=== PATIENT | female | born 1975 | race Caucasian/White ===

== ENCOUNTER → 2016-05-04 | Outpatient (CLI) | payer MEDICARE, MEDICAID | END | disposition home or self-care (01) | LOC: MW.CHFP 14:07 | PROVIDERS: ATTEND Physician Assistant | DX: Z01.419 Encounter for gynecological examination (general) (routine) without abnormal findings (principal) | CPT/HCPCS: 90471; 90715; 99214; G0145 ==

== ENCOUNTER 2016-05-20 16:23 | Inpatient (IN) | payer MEDICARE, MEDICAID ==
[2016-05-20] MEDS ORDERED: Sodium Chloride 0.9% 1,000 ML IV ONE (16:57)
[2016-05-20] MEDS ORDERED: Sodium Chloride 0.9% 10 ML Syringe FLUSH PRN (16:57)
[2016-05-20] MEDS ORDERED: Sodium Chloride 0.9% 2.5 ML Syringe FLUSH PRN (16:57)
[2016-05-20] MEDS ORDERED: Ondansetron 4 MG/2 ML SDV IVPUSH ONE (16:57)
[2016-05-20] MEDS ORDERED: Albuterol/Ipratropium 3.0-0.5 MG/3 ML Neb Soln NEB ONE (17:03)
--- NOTE | 2016-05-20 17:37 | EDM.PDOC ---
<Koko JoseMichelle - Last Filed: 05/20/16 18:29> ED HPI GI/ABDOMINAL - General Chief Complaint: Gastrointestinal Problem Stated Complaint: unable to use the restroom Time Seen by Provider: 05/20/16 16:37 Source of Information: Reports: Patient - History of Present Illness INITIAL COMMENTS - FREE TEXT/NARRATIVE: Patient is a 40 year old female who presents to the ED with caregiver who voices patient was into the clinic yesterday and was diagnosed with pneumonia and started on outpatient antibiotic therapy. Patient started vomiting today after j tube feeding and had a total of 2 large emesis orally with last one being an hour ago. Patient has a history of aspiration, staff are worried she will aspirate so they brought her in to be evaluated. According to staff patient has had decreased urine output since this morning patient is usually wet in the morning and is changed every 2-3 hours. Patient was changed once after waking up but has since not had any more wet attends. All information is obtained via caregiver as patient is non-verbal. According to caregiver patient is usually more alert and can hold head up and interact with staff, and people around. Symptom Onset Date: 05/20/16 Timing/Duration: Reports: Hour(s): (3-4 hours ago) - Related Data Allergies/ADRs: Allergies Allergy/AdvReac Type Severity Reaction Status Date / Time avocado Allergy Rash Verified 05/20/16 16:41 kiwi Allergy Rash Verified 05/20/16 16:41 latex Allergy Hives Verified 05/20/16 16:41 Latex, Natural Rubber Allergy Rash Verified 05/20/16 16:41 Sulfa (Sulfonamide Allergy Rash Verified 05/20/16 16:41 Antibiotics) sulfamethoxazole Allergy Hives Verified 05/20/16 16:41 [From Bactrim] trimethoprim [From Bactrim] Allergy Hives Verified 05/20/16 16:41 chestnuts Allergy Rash Uncoded 05/20/16 16:41 Home Meds: Home Meds EPINEPHrine [Epipen] 0.3 mg PO ASDIRECTED 01/11/15 [History] Cyanocobalamin (Vitamin B12) [Vitamin B12] 1,000 mcg PEGTUBE DAILY #0 01/19/15 [Rx] Multivitamin [Multi-Vitamin Daily] 1 tab PEGTUBE DAILY #0 01/19/15 [Rx] Sertraline [Zoloft] 100 mg PEGTUBE DAILY #0 01/19/15 [Rx] diphenhydrAMINE [Benadryl] 25 mg PEGTUBE Q6HR PRN #0 01/19/15 [Rx] Baclofen 10 mg PEGTUBE ASDIRECTED 05/15/15 [History] Bisacodyl [Dulcolax] 10 mg RECTAL DAILY 05/15/15 [History] medroxyPROGESTERone Acetate [Depo-Provera] 150 mg IM ASDIRECTED 05/15/15 [ History] Azithromycin 500 mg PO DAILY 05/20/16 [History] Dextromethorphan HBr [Tussin Cough] 15 mg PO 05/20/16 [History] Past Medical History Other Gastrointestinal History: Gtube Genitourinary History: Reports: UTI, recurrent Other OB/BYN History: Ovarian torsion Neurological History: Reports: Cerebral palsy Other Neuro History: Microcephalic Other Psychiatric History: separation anxiety, intellectual disability Hematologic History: Reports: B12 deficiency - Past Surgical History GI Surgical History: Reports: Appendectomy, Colonoscopy Female Surgical History: Reports: Other (see below) Other Female Surgeries/Procedures: Oopherectomy Other Neurological Surgeries/Procedures: Baclofen pump implant 01-21-02, baclofen removal Other Musculoskeletal Surgeries/Procedures:: Hamstring strech/lengthening Social & Family History - Family History Family Medical History: Noncontributory - Tobacco Use Smoking Status *Q: Never Smoker - Recreational Drug Use Recreational Drug Use: No - Living Situation & Occupation Living situation: Reports: extended care facility ([facility] ED ROS GENERAL - Review of Systems Review Of Systems: ROS reveals no pertinent complaints other than HPI. ED EXAM, GI/ABD - Physical Exam Exam: See Below (non-verbal patient) Exam Limited By: Other General Appearance: alert, WD/WN, no apparent distress Ears: normal external exam Nose: normal inspection Throat/Mouth: Normal inspection, Normal lips, Normal gums, Normal oropharynx, No airway compromise, Other (numerous filling noted to teeth) Head: atraumatic, normocephalic Neck: normal inspection Respiratory/Chest: rhonchi, other (rhonchi and bronchial breath sounds throughout uper and lower airways) Cardiovascular: regular rate, rhythm GI/Abdominal: normal bowel sounds, soft, non tender, no organomegaly, no distention, no abnormal bruit, no mass (Female) Exam: Deferred Rectal (Female) Exam: Deferred Skin Exam: Warm, Dry, Normal color Course - Vital Signs Last Recorded V/S: Last Vital Signs Temp 37.3 C 05/21/16 04:00 Pulse 146 H 05/21/16 06:00 Resp 25 H 05/21/16 06:00 BP 114/64 05/21/16 06:00 Pulse Ox 94 L 05/21/16 06:00 - Orders/Labs/Meds Orders: Active Orders 24 hr Category Date Time Status Admission Status [Patient Status] [ADT] Stat ADT 05/20/16 18:36 Active Insert Urinary Catheter [OM.PC] Q24H Care 05/20/16 19:00 Ordered Oxygen Therapy [RC] PRN Care 05/20/16 18:51 Active RT Aerosol Therapy [RC] ASDIRECTED Care 05/20/16 17:03 Active Urinary Catheter Assessment [RC] Q4H Care 05/20/16 18:53 Active Vital Signs [RC] Q1H Care 05/20/16 18:51 Active CULTURE BLOOD [BC] Stat Lab 05/20/16 17:24 Results CULTURE BLOOD [BC] Stat Lab 05/20/16 17:36 Received CULTURE URINE [RM] Stat Lab 05/20/16 20:00 Received Baclofen [Lioresal] Med 05/20/16 21:00 Active 10 mg GTUBE BID Bisacodyl [Dulcolax] Med 05/21/16 09:00 Active 10 mg RECTAL DAILY Heparin Sodium Med 05/21/16 19:00 Active 5,000 units SUBCUT Q8H Levofloxacin/Dextrose 5%-Water [Levaquin in D5W 500 MG/ Med 05/20/16 19:00 Active 100 ML] 500 mg Premix Bag 1 bag IV Q48H Piperacillin/Tazobactam [Zosyn] 2.25 gm Med 05/21/16 01:00 Active Sodium Chloride 0.9% [Normal Saline] 50 ml IV Q6H Sertraline [Zoloft] Med 05/21/16 09:00 Active 100 mg GTUBE DAILY Sodium Chloride 0.9% [Saline Flush] Med 05/20/16 16:57 Active 10 ml FLUSH ASDIRECTED PRN Sodium Chloride 0.9% [Saline Flush] Med 05/20/16 16:57 Active 2.5 ml FLUSH ASDIRECTED PRN Vancomycin Pharmacy to Dose [Pharmacy to Dose - Med 05/20/16 19:00 Pending Vancomycin] 1 dose .XX ASDIRECTED Aspiration Precautions [OM.PC] Stat Ot 05/20/16 18:51 Ordered Blood Culture x2 Reflex Set [OM.PC] Stat Ot 05/20/16 16:56 Ordered Saline Lock Insert [OM.PC] Stat Ot 05/20/16 16:56 Ordered Resuscitation Status Routine Resus Stat 05/20/16 18:51 Ordered Medication Orders Baclofen (Lioresal) 10 mg GTUBE BID [facility] Last Admin: 05/20/16 21:44 Dose: 10 mg Bisacodyl (Dulcolax) 10 mg RECTAL DAILY [facility] Heparin Sodium (Porcine) (Heparin Sodium) 5,000 units SUBCUT Q8H [facility] Levofloxacin/Dextrose 500 mg/ (Premix) 100 mls @ 100 mls/hr IV Q48H [facility] Last Admin: 05/20/16 21:08 Dose: 100 mls/hr Piperacillin Sod/Tazobactam (Sod 2.25 gm/ Sodium Chloride) 50 mls @ 100 mls/hr IV Q6H [facility] Last Admin: 05/21/16 06:17 Dose: 100 mls/hr Infusion: 05/21/16 01:19 Dose: 100 mls/hr Admin: 05/21/16 00:49 Dose: 100 mls/hr Dextrose/Water (Dextrose 5% In Water) 1,000 mls @ 150 mls/hr IV ASDIRECTED [facility] Last Admin: 05/21/16 00:56 Dose: 150 mls/hr Lactated Ringer's (Ringers, Lactated) 1,000 mls @ 999 mls/hr IV .BOLUS [facility] Last Admin: 05/21/16 05:06 Dose: 999 mls/hr Pneumococcal Polyvalent Vaccine (Pneumovax 23) 0.5 ml IM .ONCE ONE Stop: 05/21/16 09:01 Sertraline HCl (Zoloft) 100 mg GTUBE DAILY [facility] Sodium Chloride (Saline Flush) 10 ml FLUSH ASDIRECTED PRN PRN Reason: Keep Vein Open Last Admin: 05/20/16 17:40 Dose: 10 ml Sodium Chloride (Saline Flush) 2.5 ml FLUSH ASDIRECTED PRN PRN Reason: Keep Vein Open Last Admin: 05/20/16 17:40 Dose: 2.5 ml Vancomycin HCl (Pharmacy To Dose - Vancomycin) 1 dose .XX ASDIRECTED [facility] Labs: Laboratory Tests 05/20/16 05/20/16 05/20/16 Range/Units 17:36 17:36 17:36 WBC 11.55 H (4.0-11.0) K/uL RBC 4.87 (4.30-5.90) M/uL Hgb 16.3 H (12.0-16.0) g/dL Hct 49.7 H (36.0-46.0) % MCV 102.1 H (80.0-98.0) fL MCH 33.5 H (27.0-32.0) pg MCHC 32.8 (31.0-37.0) g/dL RDW Std Deviation 52.0 (28.0-62.0) fl RDW Coeff of Julio 14 (11.0-15.0) % Plt Count 132 L (150-400) K/uL MPV 12.70 H (7.40-12.00) fL Neut % (Auto) 77.5 (48.0-80.0) % Lymph % (Auto) 9.8 L (16.0-40.0) % [place] % (Auto) 12.6 (0.0-15.0) % Eos % (Auto) 0.0 (0.0-7.0) % Baso % (Auto) 0.1 (0.0-1.5) % Neut # 9.0 H (1.4-5.7) K/uL Lymph # 1.1 (0.6-2.4) K/uL [place] # 1.5 H (0.0-0.8) K/uL Eos # 0.0 (0.0-0.7) K/uL Baso # 0.0 (0.0-0.1) K/uL Nucleated RBC % 0.0 /100WBC Nucleated RBCs # 0 K/uL Lactate 4.7 H (0.20-2.00) mmol/L Sodium 161 H* (136-146) mmol/L Potassium 3.4 L (3.5-5.1) mmol/L Chloride 123 H (98-110) mmol/L Carbon Dioxide 20 L (21-31) mmol/L BUN 96 H (6.0-23.0) mg/dL Creatinine 2.1 H (0.6-1.5) mg/dL Est Cr Clr Drug Dosing 20.20 mL/min Estimated GFR (MDRD) 26.0 ml/min Glucose 185 H (60-110) mg/dL Calcium 9.6 (8.8-10.8) mg/dL Total Bilirubin 1.0 (0.1-1.5) mg/dL AST 61 H (5-40) IU/L ALT 31 (8-54) IU/L Alkaline Phosphatase 107 (40-150) Total Protein 8.5 H (6.0-8.0) g/dL Albumin 4.1 (3.5-5.0) g/dL Globulin 4.4 H (2.0-3.5) g/dL Albumin/Globulin Ratio 0.9 L (1.3-2.8) Lipase < 8 (7-80) U/L Urine Color Urine Appearance Urine pH (5.0-8.0) Ur Specific [place] (1.001-1.035) Urine Protein (NEGATIVE) mg/dL Urine Glucose (UA) (NEGATIVE) mg/dL Urine Ketones (NEGATIVE) mg/dL Urine Occult Blood (NEGATIVE) Urine Nitrite (NEGATIVE) Urine Bilirubin (NEGATIVE) Urine Urobilinogen (<2.0) EU/dL Ur Leukocyte Esterase (NEGATIVE) Urine RBC (0-2/HPF) Urine WBC (0-5/HPF) Ur Epithelial Cells (NONE-FEW) Amorphous Sediment (NEGATIVE) Urine Bacteria (NEGATIVE) Urine Mucus (NONE-MOD) 05/20/16 Range/Units 20:00 WBC (4.0-11.0) K/uL RBC (4.30-5.90) M/uL Hgb (12.0-16.0) g/dL Hct (36.0-46.0) % MCV (80.0-98.0) fL MCH (27.0-32.0) pg MCHC (31.0-37.0) g/dL RDW Std Deviation (28.0-62.0) fl RDW Coeff of Julio (11.0-15.0) % Plt Count (150-400) K/uL MPV (7.40-12.00) fL Neut % (Auto) (48.0-80.0) % Lymph % (Auto) (16.0-40.0) % [place] % (Auto) (0.0-15.0) % Eos % (Auto) (0.0-7.0) % Baso % (Auto) (0.0-1.5) % Neut # (1.4-5.7) K/uL Lymph # (0.6-2.4) K/uL [place] # (0.0-0.8) K/uL Eos # (0.0-0.7) K/uL Baso # (0.0-0.1) K/uL Nucleated RBC % /100WBC Nucleated RBCs # K/uL Lactate (0.20-2.00) mmol/L Sodium (136-146) mmol/L Potassium (3.5-5.1) mmol/L Chloride (98-110) mmol/L Carbon Dioxide (21-31) mmol/L BUN (6.0-23.0) mg/dL Creatinine (0.6-1.5) mg/dL Est Cr Clr Drug Dosing mL/min Estimated GFR (MDRD) ml/min Glucose (60-110) mg/dL Calcium (8.8-10.8) mg/dL Total Bilirubin (0.1-1.5) mg/dL AST (5-40) IU/L ALT (8-54) IU/L Alkaline Phosphatase (40-150) Total Protein (6.0-8.0) g/dL Albumin (3.5-5.0) g/dL Globulin (2.0-3.5) g/dL Albumin/Globulin Ratio (1.3-2.8) Lipase (7-80) U/L Urine Color YELLOW Urine Appearance SLT CLOUDY Urine pH 5.0 (5.0-8.0) Ur Specific [place] 1.025 (1.001-1.035) Urine Protein 100 (NEGATIVE) mg/dL Urine Glucose (UA) NEGATIVE (NEGATIVE) mg/dL Urine Ketones NEGATIVE (NEGATIVE) mg/dL Urine Occult Blood LARGE H (NEGATIVE) Urine Nitrite NEGATIVE (NEGATIVE) Urine Bilirubin NEGATIVE (NEGATIVE) Urine Urobilinogen 0.2 (<2.0) EU/dL Ur Leukocyte Esterase NEGATIVE (NEGATIVE) Urine RBC 1-4 (0-2/HPF) Urine WBC 1-4 (0-5/HPF) Ur Epithelial Cells FEW (NONE-FEW) Amorphous Sediment MODERATE (NEGATIVE) Urine Bacteria FEW (NEGATIVE) Urine Mucus LIGHT (NONE-MOD) Meds: Medications Generic Name Dose Route Start Last Admin Trade Name Freq PRN Reason Stop Dose Admin Baclofen 10 mg 05/20/16 21:00 05/20/16 21:44 Lioresal GTUBE 10 mg BID AGUS Administration Bisacodyl 10 mg 05/21/16 09:00 Dulcolax RECTAL DAILY AGUS Heparin Sodium (Porcine) 5,000 units 05/21/16 19:00 Heparin Sodium SUBCUT Q8H AGUS Levofloxacin/Dextrose 500 mg/ 100 mls @ 100 mls/hr 05/20/16 19:00 05/20/16 21 :08 Premix IV 100 mls/hr Q48H AUGS Administration Piperacillin Sod/Tazobactam 50 mls @ 100 mls/hr 05/21/16 01:00 05/21/16 06:17 Sod 2.25 gm/ Sodium Chloride IV 100 mls/hr Q6H AGUS Administration Dextrose/Water 1,000 mls @ 150 mls/hr 05/21/16 01:00 05/21/16 00:56 Dextrose 5% In Water IV 150 mls/hr ASDIRECTED AGUS Administration Lactated Ringer's 1,000 mls @ 999 mls/hr 05/21/16 05:00 05/21/16 05:06 Ringers, Lactated IV 999 mls/hr .BOLUS AGUS Administration Pneumococcal Polyvalent Vaccine 0.5 ml 05/21/16 09:00 Pneumovax 23 IM 05/21/16 09:01 .ONCE ONE Sertraline HCl 100 mg 05/21/16 09:00 Zoloft GTUBE DAILY AGUS Sodium Chloride 10 ml 05/20/16 16:57 05/20/16 17:40 Saline Flush FLUSH 10 ml ASDIRECTED PRN Administration Keep Vein Open Sodium Chloride 2.5 ml 05/20/16 16:57 05/20/16 17:40 Saline Flush FLUSH 2.5 ml ASDIRECTED PRN Administration Keep Vein Open Vancomycin HCl 1 dose 05/20/16 19:00 Pharmacy To Dose - Vancomycin .XX ASDIRECTED AGUS Discontinued Medications Generic Name Dose Route Start Last Admin Trade Name Saman PRN Reason Stop Dose Admin Albuterol/Ipratropium 3 ml 05/20/16 17:03 05/20/16 17:11 Duoneb 3.0-0.5 Mg/3 Ml NEB 05/20/16 17:04 3 ml ONETIME ONE Administration Fentanyl 50 mcg 05/21/16 01:50 05/21/16 02:49 Sublimaze IVPUSH 05/21/16 01:51 50 mcg ONETIME ONE Administration Fentanyl 50 mcg 05/21/16 03:08 05/21/16 03:37 Sublimaze IVPUSH 05/21/16 03:09 50 mcg ONETIME ONE Administration Haloperidol Lactate 5 mg 05/21/16 00:46 05/21/16 00:55 Haldol IM 05/21/16 00:47 5 mg ONETIME ONE Administration Sodium Chloride 1,000 mls @ 999 mls/hr 05/20/16 16:57 05/20/16 17:40 Normal Saline IV 05/20/16 17:57 999 mls/hr STAT ONE Administration Piperacillin Sod/Tazobactam 50 mls @ 100 mls/hr 05/20/16 18:34 05/20/16 18:48 Sod 3.375 gm/ Sodium Chloride IV 05/20/16 19:03 100 mls/hr ONETIME ONE Administration Sodium Chloride 1,000 mls @ 150 mls/hr 05/20/16 19:00 05/20/16 21:09 Sodium Chloride 0.45% IV 150 mls/hr ASDIRECTED AGUS Administration Vancomycin HCl 500 mg/ Sodium 100 mls @ 100 mls/hr 05/20/16 20:00 05/20/16 22 :31 Chloride IV 05/20/16 20:59 100 mls/hr ONETIME ONE Administration Lactated Ringer's 1,000 mls @ 999 mls/hr 05/21/16 02:50 05/21/16 02:59 Ringers, Lactated IV 05/21/16 03:50 999 mls/hr .BOLUS ONE Administration Ondansetron HCl 4 mg 05/20/16 16:57 05/20/16 17:39 Zofran IVPUSH 05/20/16 16:58 4 mg ONETIME ONE Administration Departure - Departure Disposition: Admitted As Inpatient 65 Clinical Impression: Dehydration, severe, Hypernatremia Sepsis Qualifiers: Sepsis type: sepsis due to unspecified organism Qualified Code(s): A41.9 - Sepsis, unspecified organism Pneumonia Qualifiers: Pneumonia type: due to unspecified organism Laterality: left Lung location: unspecified part of lung Qualified Code(s): J18.9 - Pneumonia, unspecified organism - My Orders Last 24 Hours: My Active Orders 05/20/16 16:56 Blood Culture x2 Reflex Set [OM.PC] Stat Saline Lock Insert [OM.PC] Stat 05/20/16 16:57 Sodium Chloride 0.9% [Saline Flush] 10 ml FLUSH ASDIRECTED PRN Sodium Chloride 0.9% [Saline Flush] 2.5 ml FLUSH ASDIRECTED PRN 05/20/16 17:03 RT Aerosol Therapy [RC] ASDIRECTED 05/20/16 17:24 CULTURE BLOOD [BC] Stat 05/20/16 17:36 CULTURE BLOOD [BC] Stat 05/20/16 18:36 Admission Status [Patient Status] [ADT] Stat 05/20/16 20:00 CULTURE URINE [RM] Stat - Assessment/Plan Last 24 Hours: My Active Orders 05/20/16 16:56 Blood Culture x2 Reflex Set [OM.PC] Stat Saline Lock Insert [OM.PC] Stat 05/20/16 16:57 Sodium Chloride 0.9% [Saline Flush] 10 ml FLUSH ASDIRECTED PRN Sodium Chloride 0.9% [Saline Flush] 2.5 ml FLUSH ASDIRECTED PRN 05/20/16 17:03 RT Aerosol Therapy [RC] ASDIRECTED 05/20/16 17:24 CULTURE BLOOD [BC] Stat 05/20/16 17:36 CULTURE BLOOD [BC] Stat 05/20/16 18:36 Admission Status [Patient Status] [ADT] Stat 05/20/16 20:00 CULTURE URINE [RM] Stat <Maday Carver - Last Filed: 05/21/16 07:24> ED HPI GI/ABDOMINAL - History of Present Illness INITIAL COMMENTS - FREE TEXT/NARRATIVE: This is Dr. Carver dictating as the supervising physician on the case. The patient has had cold symptoms and upper respiratory symptoms and was seen in our clinic yesterday and had a chest x-ray which we have reviewed. Indicated a left retrocardiac infiltrate. She had a WBC count of 10 at that time and was placed on Zithromax. The patient has been vomiting as described above and she has not made any urine output all day today. Patient sounds more congested per the caregiver and here in the ER showed a temp of 100.2., Per my own Independent evaluation of her she looks dehydrated clinically but is nontoxic and is breathing spontaneously without work of breathing. She's has coarse breath sounds bilaterally and congested upper airway noise. Her O2 sat on room air was 90%. We will give her a duo neb and perform our labs but will not repeat a chest x-ray as we are ready he did that yesterday. We will give IV fluids and Zofran and reevaluate pending those results. Please note that all history is per the caregiver as the patient is nonverbal cannot her head intermittently with questions. Per the caregiver she did not complain of any abdominal pain and on palpation she exhibited no rebound guarding or grimacing. All labs have been reviewed by us and case was discussed with at 1625. He has accepted the patient for admission. Patient will be admitted for IV fluids and antibiotics. Impression: Extreme dehydration with hypernatremia, pneumonia rule out sepsis ED ROS GENERAL - Review of Systems Review Of Systems: ROS reveals no pertinent complaints other than HPI. Course - Orders/Labs/Meds Labs: Laboratory Tests 05/20/16 05/20/16 05/20/16 Range/Units 17:36 17:36 17:36 WBC 11.55 H (4.0-11.0) K/uL RBC 4.87 (4.30-5.90) M/uL Hgb 16.3 H (12.0-16.0) g/dL Hct 49.7 H (36.0-46.0) % MCV 102.1 H (80.0-98.0) fL MCH 33.5 H (27.0-32.0) pg MCHC 32.8 (31.0-37.0) g/dL RDW Std Deviation 52.0 (28.0-62.0) fl RDW Coeff of Jluio 14 (11.0-15.0) % Plt Count 132 L (150-400) K/uL MPV 12.70 H (7.40-12.00) fL Neut % (Auto) 77.5 (48.0-80.0) % Lymph % (Auto) 9.8 L (16.0-40.0) % [place] % (Auto) 12.6 (0.0-15.0) % Eos % (Auto) 0.0 (0.0-7.0) % Baso % (Auto) 0.1 (0.0-1.5) % Neut # 9.0 H (1.4-5.7) K/uL Lymph # 1.1 (0.6-2.4) K/uL [place] # 1.5 H (0.0-0.8) K/uL Eos # 0.0 (0.0-0.7) K/uL Baso # 0.0 (0.0-0.1) K/uL Nucleated RBC % 0.0 /100WBC Nucleated RBCs # 0 K/uL Lactate 4.7 H (0.20-2.00) mmol/L Sodium 161 H* (136-146) mmol/L Potassium 3.4 L (3.5-5.1) mmol/L Chloride 123 H (98-110) mmol/L Carbon Dioxide 20 L (21-31) mmol/L BUN 96 H (6.0-23.0) mg/dL Creatinine 2.1 H (0.6-1.5) mg/dL Est Cr Clr Drug Dosing 20.20 mL/min Estimated GFR (MDRD) 26.0 ml/min Glucose 185 H (60-110) mg/dL Calcium 9.6 (8.8-10.8) mg/dL Total Bilirubin 1.0 (0.1-1.5) mg/dL AST 61 H (5-40) IU/L ALT 31 (8-54) IU/L Alkaline Phosphatase 107 (40-150) Total Protein 8.5 H (6.0-8.0) g/dL Albumin 4.1 (3.5-5.0) g/dL Globulin 4.4 H (2.0-3.5) g/dL Albumin/Globulin Ratio 0.9 L (1.3-2.8) Lipase < 8 (7-80) U/L Urine Color Urine Appearance Urine pH (5.0-8.0) Ur Specific [place] (1.001-1.035) Urine Protein (NEGATIVE) mg/dL Urine Glucose (UA) (NEGATIVE) mg/dL Urine Ketones (NEGATIVE) mg/dL Urine Occult Blood (NEGATIVE) Urine Nitrite (NEGATIVE) Urine Bilirubin (NEGATIVE) Urine Urobilinogen (<2.0) EU/dL Ur Leukocyte Esterase (NEGATIVE) Urine RBC (0-2/HPF) Urine WBC (0-5/HPF) Ur Epithelial Cells (NONE-FEW) Amorphous Sediment (NEGATIVE) Urine Bacteria (NEGATIVE) Urine Mucus (NONE-MOD) 05/20/16 Range/Units 20:00 WBC (4.0-11.0) K/uL RBC (4.30-5.90) M/uL Hgb (12.0-16.0) g/dL Hct (36.0-46.0) % MCV (80.0-98.0) fL MCH (27.0-32.0) pg MCHC (31.0-37.0) g/dL RDW Std Deviation (28.0-62.0) fl RDW Coeff of Julio (11.0-15.0) % Plt Count (150-400) K/uL MPV (7.40-12.00) fL Neut % (Auto) (48.0-80.0) % Lymph % (Auto) (16.0-40.0) % [place] % (Auto) (0.0-15.0) % Eos % (Auto) (0.0-7.0) % Baso % (Auto) (0.0-1.5) % Neut # (1.4-5.7) K/uL Lymph # (0.6-2.4) K/uL [place] # (0.0-0.8) K/uL Eos # (0.0-0.7) K/uL Baso # (0.0-0.1) K/uL Nucleated RBC % /100WBC Nucleated RBCs # K/uL Lactate (0.20-2.00) mmol/L Sodium (136-146) mmol/L Potassium (3.5-5.1) mmol/L Chloride (98-110) mmol/L Carbon Dioxide (21-31) mmol/L BUN (6.0-23.0) mg/dL Creatinine (0.6-1.5) mg/dL Est Cr Clr Drug Dosing mL/min Estimated GFR (MDRD) ml/min Glucose (60-110) mg/dL Calcium (8.8-10.8) mg/dL Total Bilirubin (0.1-1.5) mg/dL AST (5-40) IU/L ALT (8-54) IU/L Alkaline Phosphatase (40-150) Total Protein (6.0-8.0) g/dL Albumin (3.5-5.0) g/dL Globulin (2.0-3.5) g/dL Albumin/Globulin Ratio (1.3-2.8) Lipase (7-80) U/L Urine Color YELLOW Urine Appearance SLT CLOUDY Urine pH 5.0 (5.0-8.0) Ur Specific [place] 1.025 (1.001-1.035) Urine Protein 100 (NEGATIVE) mg/dL Urine Glucose (UA) NEGATIVE (NEGATIVE) mg/dL Urine Ketones NEGATIVE (NEGATIVE) mg/dL Urine Occult Blood LARGE H (NEGATIVE) Urine Nitrite NEGATIVE (NEGATIVE) Urine Bilirubin NEGATIVE (NEGATIVE) Urine Urobilinogen 0.2 (<2.0) EU/dL Ur Leukocyte Esterase NEGATIVE (NEGATIVE) Urine RBC 1-4 (0-2/HPF) Urine WBC 1-4 (0-5/HPF) Ur Epithelial Cells FEW (NONE-FEW) Amorphous Sediment MODERATE (NEGATIVE) Urine Bacteria FEW (NEGATIVE) Urine Mucus LIGHT (NONE-MOD) Departure - Departure Time of Disposition: 18:25 Condition: fair
[2016-05-20 18:09] LABS: CHLORIDE,CL 123 mmol/L (98-110)
[2016-05-20 18:12] LABS: SODIUM,NA 161 mmol/L (136-146)
[2016-05-20] MEDS ORDERED: Piperacillin/Tazobactam 3.375 GM in Sodium Chloride 0.9% 50 ML IV ONE (18:34)
[2016-05-20] MEDS ORDERED: Levofloxacin/Dextrose 5%-Water 500 MG in Premix Bag 1 BAG IV SCH (19:00)
[2016-05-20] MEDS ORDERED: Sodium Chloride 0.45% 1,000 ML IV SCH (19:00)
--- NOTE | 2016-05-20 19:02 | PCM.HP ---
H&P History of Present Illness - General Date of Service: 05/20/16 Admit Problem/Dx: Admission Diagnosis/Problem Admission Diagnosis/Problem Dehydration Source of Information: Old records, Provider - History of Present Illness Initial Comments - Free Text/Narative: seen in the ED today with fever and cough. she was seen recently and started on azithromycin for pneumonia evident on CXR as a retrocardiac infiltrate. She is non verbal - Related Data Allergies/Adverse Reactions: Allergies Allergy/AdvReac Type Severity Reaction Status Date / Time avocado Allergy Rash Verified 05/20/16 16:41 kiwi Allergy Rash Verified 05/20/16 16:41 latex Allergy Hives Verified 05/20/16 16:41 Latex, Natural Rubber Allergy Rash Verified 05/20/16 16:41 Sulfa (Sulfonamide Allergy Rash Verified 05/20/16 16:41 Antibiotics) sulfamethoxazole Allergy Hives Verified 05/20/16 16:41 [From Bactrim] trimethoprim [From Bactrim] Allergy Hives Verified 05/20/16 16:41 chestnuts Allergy Rash Uncoded 05/20/16 16:41 Home Medications: Home Meds EPINEPHrine [Epipen] 0.3 mg PO ASDIRECTED 01/11/15 [History] Cyanocobalamin (Vitamin B12) [Vitamin B12] 1,000 mcg PEGTUBE DAILY #0 01/19/15 [Rx] Multivitamin [Multi-Vitamin Daily] 1 tab PEGTUBE DAILY #0 01/19/15 [Rx] Sertraline [Zoloft] 100 mg PEGTUBE DAILY #0 01/19/15 [Rx] diphenhydrAMINE [Benadryl] 25 mg PEGTUBE Q6HR PRN #0 01/19/15 [Rx] Baclofen 10 mg PEGTUBE ASDIRECTED 05/15/15 [History] Bisacodyl [Dulcolax] 10 mg RECTAL DAILY 05/15/15 [History] medroxyPROGESTERone Acetate [Depo-Provera] 150 mg IM ASDIRECTED 05/15/15 [ History] Azithromycin 500 mg PO DAILY 05/20/16 [History] Dextromethorphan HBr [Tussin Cough] 15 mg PO 05/20/16 [History] Past Medical History HEENT History: Reports: None Cardiovascular History: Reports: None Respiratory History: Reports: None, Other (see below) (high aspiration pneumonia risk) Gastrointestinal History: Reports: Other (see below) Other Gastrointestinal History: Gtube Genitourinary History: Reports: UTI, recurrent PARISH NURSE History: Reports: Other (see below) Other OB/BYN History: Ovarian torsion Musculoskeletal History: Reports: None Neurological History: Reports: Cerebral palsy Other Neuro History: Microcephalic Psychiatric History: Reports: Other (see below) Other Psychiatric History: separation anxiety, intellectual disability Endocrine/Metabolic History: Reports: None Hematologic History: Reports: B12 deficiency Immunologic History: Reports: None Oncologic (Cancer) History: Reports: None Dermatologic History: Reports: None - Past Surgical History GI Surgical History: Reports: Appendectomy, Colonoscopy Female Surgical History: Reports: Other (see below) Other Female Surgeries/Procedures: Oopherectomy Other Neurological Surgeries/Procedures: Baclofen pump implant 01-21-02, baclofen removal Other Musculoskeletal Surgeries/Procedures:: Hamstring strech/lengthening Social & Family History - Family History Family Medical History: Noncontributory - Tobacco Use Smoking Status *Q: Never Smoker Second Hand Smoke Exposure: No - Caffeine Use Caffeine Use: Reports: None - Recreational Drug Use Recreational Drug Use: No - Living Situation & Occupation Living situation: Reports: extended care facility ([facility] ) H&P Review of Systems - Review of Systems: Review Of Systems: Unable To Obtain General: Reports: fever Pulmonary: Reports: cough Exam - Exam Exam: See Below - Vital Signs Vital Signs: Last Vital Signs Temp 101.4 F H 05/20/16 18:34 Pulse 139 H 05/20/16 18:34 Resp 20 05/20/16 18:34 BP 116/74 05/20/16 18:34 Pulse Ox 94 L 05/20/16 18:34 Weight: 36.287 kg - Exam Quality Assessment: other (she is non verbal and does not follow commands) General: alert HEENT: Other (lips dry) Lungs: Rales (bilateral rales) Cardiovascular: regular rate, regular rhythm Abdomen: soft. No: tenderness Extremities: other (cap refill toes less than two seconds; diffuse muscular atrophy; marked diffuse spasticity.). No: edema - Patient Data Lab Results last 24 hrs: Laboratory Results - last 24 hr 05/20/16 05/20/16 05/20/16 Range/Units 17:36 17:36 17:36 WBC 11.55 H (4.0-11.0) K/uL RBC 4.87 (4.30-5.90) M/uL Hgb 16.3 H (12.0-16.0) g/dL Hct 49.7 H (36.0-46.0) % MCV 102.1 H (80.0-98.0) fL MCH 33.5 H (27.0-32.0) pg MCHC 32.8 (31.0-37.0) g/dL RDW Std Deviation 52.0 (28.0-62.0) fl RDW Coeff of Julio 14 (11.0-15.0) % Plt Count 132 L (150-400) K/uL MPV 12.70 H (7.40-12.00) fL Neut % (Auto) 77.5 (48.0-80.0) % Lymph % (Auto) 9.8 L (16.0-40.0) % Nuckolls % (Auto) 12.6 (0.0-15.0) % Eos % (Auto) 0.0 (0.0-7.0) % Baso % (Auto) 0.1 (0.0-1.5) % Neut # 9.0 H (1.4-5.7) K/uL Lymph # 1.1 (0.6-2.4) K/uL Nuckolls # 1.5 H (0.0-0.8) K/uL Eos # 0.0 (0.0-0.7) K/uL Baso # 0.0 (0.0-0.1) K/uL Nucleated RBC % 0.0 /100WBC Nucleated RBCs # 0 K/uL Lactate 4.7 H (0.20-2.00) mmol/L Sodium 161 H* (136-146) mmol/L Potassium 3.4 L (3.5-5.1) mmol/L Chloride 123 H (98-110) mmol/L Carbon Dioxide 20 L (21-31) mmol/L BUN 96 H (6.0-23.0) mg/dL Creatinine 2.1 H (0.6-1.5) mg/dL Est Cr Clr Drug Dosing 20.20 mL/min Estimated GFR (MDRD) 26.0 ml/min Glucose 185 H (60-110) mg/dL Calcium 9.6 (8.8-10.8) mg/dL Total Bilirubin 1.0 (0.1-1.5) mg/dL AST 61 H (5-40) IU/L ALT 31 (8-54) IU/L Alkaline Phosphatase 107 (40-150) Total Protein 8.5 H (6.0-8.0) g/dL Albumin 4.1 (3.5-5.0) g/dL Globulin 4.4 H (2.0-3.5) g/dL Albumin/Globulin Ratio 0.9 L (1.3-2.8) Lipase < 8 (7-80) U/L Result Diagrams: 05/20/16 17:36 05/20/16 17:36 Sloan Results last 24 hrs: Microbiology 05/20/16 18:00 Influenza Type A Antigen Screen - Final Nasal, Unspecified NEGATIVE INFLUENZA A VIRUS AG Influenza Type B Antigen Screen - Final NEGATIVE INFLUENZA B VIRUS AG 05/20/16 17:24 Anaerobic Blood Culture - Final Blood - Venous *Q Meaningful Use (ADM) - VTE *Q VTE Criteria *Q: - Stroke *Q Stroke Criteria *Q: - AMI *Q AMI Criteria *Q: - Problem List (1) Sepsis SNOMED Code(s): 82515781 ICD Code: A41.9 - SEPSIS, UNSPECIFIED ORGANISM Status: Acute Current Visit: Yes (2) Aspiration pneumonia SNOMED Code(s): 744023012 ICD Code: J69.0 - PNEUMONITIS DUE TO INHALATION OF FOOD AND VOMIT Status: Chronic Priority: High Current Visit: No Problem Details: On antibiotics Qualifiers: Aspiration pneumonia type: due to gastric secretions Laterality: unspecified laterality Lung location: lower lobe of lung (3) Renal failure SNOMED Code(s): 71045754 ICD Code: N19 - UNSPECIFIED KIDNEY FAILURE Status: Acute Current Visit: Yes (4) Acute renal injury SNOMED Code(s): 14089163 ICD Code: N17.9 - ACUTE KIDNEY FAILURE, UNSPECIFIED Status: Acute Current Visit: Yes Problem List Initiated/Reviewed/Updated: Yes Orders Last 24hrs: Active Orders 24 hr Category Date Time Status Admission Status [Patient Status] [ADT] Stat ADT 05/20/16 18:36 Active Insert Urinary Catheter [OM.PC] Q24H Care 05/20/16 19:00 Ordered Oxygen Therapy [RC] PRN Care 05/20/16 18:51 Ordered Oxygen Therapy, ED [RC] ASDIRECTED Care 05/20/16 17:03 Active RT Aerosol Therapy [RC] ASDIRECTED Care 05/20/16 17:03 Active Urinary Catheter Assessment [RC] ASDIRECTED Care 05/20/16 18:53 Ordered VTE/DVT Education [RC] PER UNIT ROUTINE Care 05/20/16 18:51 Ordered Vital Signs [RC] Q4H Care 05/20/16 18:51 Ordered Nothing per Oral Now Diet [DIET] Diet 05/20/16 Breakfast Ordered Chest 1V Frontal [CR] AM Exams 05/21/16 05:11 Ordered CBC WITH AUTO DIFF [HEME] AM Lab 05/21/16 05:11 Ordered CBC WITH AUTO DIFF [HEME] AM Lab 05/22/16 05:11 Ordered CBC WITH AUTO DIFF [HEME] AM Lab 05/23/16 05:11 Ordered COMPREHENSIVE METABOLIC PN,CMP [CHEM] AM Lab 05/21/16 05:11 Ordered COMPREHENSIVE METABOLIC PN,CMP [CHEM] AM Lab 05/22/16 05:11 Ordered COMPREHENSIVE METABOLIC PN,CMP [CHEM] AM Lab 05/23/16 05:11 Ordered CULTURE BLOOD [BC] Stat Lab 05/20/16 17:24 Results CULTURE BLOOD [BC] Stat Lab 05/20/16 17:36 Received CULTURE URINE [RM] Stat Lab 05/20/16 16:56 Uncollected MAGNESIUM [CHEM] AM Lab 05/21/16 05:11 Ordered MAGNESIUM [CHEM] AM Lab 05/22/16 05:11 Ordered MAGNESIUM [CHEM] AM Lab 05/23/16 05:11 Ordered PHOSPHORUS [CHEM] AM Lab 05/21/16 05:11 Ordered UA W/MICROSCOPIC [URIN] Stat Lab 05/20/16 16:56 Uncollected Baclofen [Lioresal] Med 05/20/16 21:00 Ordered 10 mg GTUBE BID Bisacodyl [Dulcolax] Med 05/21/16 09:00 Ordered 10 mg RECTAL DAILY Heparin Sodium Med 05/21/16 19:00 Ordered 5,000 units SUBCUT Q8H Levofloxacin/Dextrose 5%-Water [Levaquin in D5W 500 MG/ Med 05/20/16 19:00 Ordered 100 ML] 500 mg Premix Bag 1 bag IV Q48H Piperacillin/Tazobactam [Piperacil-Tazobact] 3.375 gm Med 05/20/16 18:34 Active Sodium Chloride 0.9% [Normal Saline] 50 ml IV ONETIME Piperacillin/Tazobactam [Zosyn] 2.25 gm Med 05/21/16 01:00 Ordered Sodium Chloride 0.9% [Normal Saline] 50 ml IV Q6H Sertraline [Zoloft] Med 05/21/16 09:00 Ordered 100 mg GTUBE DAILY Sodium Chloride 0.45% @ 150 MLS/HR(1,000ml) Med 05/20/16 19:00 Ordered Sodium Chloride 0.45% 1,000 ml IV ASDIRECTED Sodium Chloride 0.9% [Saline Flush] Med 05/20/16 16:57 Active 10 ml FLUSH ASDIRECTED PRN Sodium Chloride 0.9% [Saline Flush] Med 05/20/16 16:57 Active 2.5 ml FLUSH ASDIRECTED PRN Vancomycin Pharmacy to Dose [Pharmacy to Dose - Med 05/20/16 19:00 Ordered Vancomycin] 1 dose .XX ASDIRECTED Aspiration Precautions [OM.PC] Stat Oth 05/20/16 18:51 Ordered Blood Culture x2 Reflex Set [OM.PC] Stat Oth 05/20/16 16:56 Ordered Saline Lock Insert [OM.PC] Stat Oth 05/20/16 16:56 Ordered Resuscitation Status Routine Resus Stat 05/20/16 18:51 Ordered Medication Orders Piperacillin Sod/Tazobactam (Sod 3.375 gm/ Sodium Chloride) 50 mls @ 100 mls/ hr IV ONETIME ONE Stop: 05/20/16 19:03 Last Admin: 05/20/16 18:48 Dose: 100 mls/hr Sodium Chloride (Saline Flush) 10 ml FLUSH ASDIRECTED PRN PRN Reason: Keep Vein Open Last Admin: 05/20/16 17:40 Dose: 10 ml Sodium Chloride (Saline Flush) 2.5 ml FLUSH ASDIRECTED PRN PRN Reason: Keep Vein Open Last Admin: 05/20/16 17:40 Dose: 2.5 ml Assessment/Plan Comment:: TO ICU see orders. Rizwan Barron MD
[2016-05-20] MEDS: Baclofen 10 MG Tab GTUBE SCH (21:44)
[2016-05-21] MEDS ORDERED: Haloperidol Lactate 5 MG/ML SDV IM ONE (00:46)
[2016-05-21] MEDS: Piperacillin/Tazobactam 2.25 GM in Sodium Chloride 0.9% 50 ML IV SCH ×4 (00:49→18:47)
[2016-05-21] MEDS: Dextrose 5% in Water 1,000 ML IV SCH ×3 (00:56→20:18)
[2016-05-21] MEDS ORDERED: fentaNYL 100 MCG/2 ML SDV IVPUSH ONE ×3 (01:50→08:48)
[2016-05-21] MEDS ORDERED: Lactated Ringers 1,000 ML IV ONE (02:50)
[2016-05-21] MEDS ORDERED: Lactated Ringers 1,000 ML IV SCH (05:00)
[2016-05-21] MEDS ORDERED: Pneumococcal Polyvalent-23 Vaccine 0.5 ML SDV IM ONE (09:00)
[2016-05-21] MEDS: Bisacodyl 10 MG Supp RECTAL SCH (09:11)
[2016-05-21] MEDS: Sertraline 100 MG Tab GTUBE SCH (09:15)
[2016-05-21] MEDS: Baclofen 10 MG Tab GTUBE SCH ×2 (09:15→20:04)
[2016-05-21] MEDS ORDERED: fentaNYL 100 MCG/2 ML SDV IVPUSH PRN (09:21)
[2016-05-21] MEDS ORDERED: Sodium Chloride 0.9% 1,000 ML IV ONE (09:24)
[2016-05-21] MEDS ORDERED: Sodium Chloride 0.9% 1,000 ML IV SCH (11:30)
[2016-05-21] MEDS ORDERED: Acetaminophen 325 MG Tab PO PRN (11:32)
[2016-05-21] MEDS ORDERED: Potassium Chloride 20 MEQ Packet PO ONE (16:00)
--- NOTE | 2016-05-21 16:31 | PCM.PN ---
- General Info Date of Service: 05/21/16 - Review of Systems Systems Review Comment:: I have reviewed orders by [facility]. I appreciate the EICU physicians' thorough and excellent care. - Patient Data Vitals - most recent: Last Vital Signs Temp 101.1 F H 05/21/16 12:00 Pulse 135 H 05/21/16 16:00 Resp 24 H 05/21/16 16:00 BP 121/81 05/21/16 16:00 Pulse Ox 95 05/21/16 16:00 Weight - most recent: 38.8 kg I&O - last 24 hours: Intake & Output 05/21/16 05/21/16 05/21/16 06:59 14:59 22:59 Intake Total 1690 Output Total 525 Balance 1165 Lab Results last 24 hrs: Laboratory Results - last 24 hr 05/20/16 05/20/16 05/20/16 Range/Units 23:25 23:25 23:40 WBC (4.0-11.0) K/uL RBC (4.30-5.90) M/uL Hgb (12.0-16.0) g/dL Hct (36.0-46.0) % MCV (80.0-98.0) fL MCH (27.0-32.0) pg MCHC (31.0-37.0) g/dL RDW Std Deviation (28.0-62.0) fl RDW Coeff of Julio (11.0-15.0) % Plt Count (150-400) K/uL MPV (7.40-12.00) fL Add Manual Diff Neutrophils % (Manual) (48.0-80.0) % Band Neutrophils % % Lymphocytes % (Manual) (16.0-40.0) % Monocytes % (Manual) (0.0-15.0) % Absolute Seg Neuts Band Neutrophils # Lymphocytes # (Manual) Monocytes # (Manual) ABG pH 7.442 (7.35-7.45) ABG pCO2 31 L (35-45) mmHG ABG pO2 97 (75-100) mmHG ABG HCO3 21 L (22-26) mEq/L ABG Total CO2 18.4 ABG Base Excess -2.7 L (-2.0-2.0) Lactate (0.20-2.00) mmol/L Sodium 162 H* (136-146) mmol/L Potassium (3.5-5.1) mmol/L Chloride (98-110) mmol/L Carbon Dioxide (21-31) mmol/L BUN (6.0-23.0) mg/dL Creatinine (0.6-1.5) mg/dL Est Cr Clr Drug Dosing mL/min Estimated GFR (MDRD) ml/min Glucose (60-110) mg/dL Calcium (8.8-10.8) mg/dL Magnesium (1.5-2.3) mEq/L Creatine Kinase 1745 H (9-236) IU/L 05/20/16 05/21/16 05/21/16 Range/Units 23:40 05:05 05:05 WBC 16.42 H (4.0-11.0) K/uL RBC 3.62 L (4.30-5.90) M/uL Hgb 12.4 (12.0-16.0) g/dL Hct 38.4 (36.0-46.0) % MCV 106.1 H (80.0-98.0) fL MCH 34.3 H (27.0-32.0) pg MCHC 32.3 (31.0-37.0) g/dL RDW Std Deviation 51.8 (28.0-62.0) fl RDW Coeff of Julio 14 (11.0-15.0) % Plt Count 81 L (150-400) K/uL MPV 12.70 H (7.40-12.00) fL Add Manual Diff YES Neutrophils % (Manual) 74 (48.0-80.0) % Band Neutrophils % 12 % Lymphocytes % (Manual) 5 L (16.0-40.0) % Monocytes % (Manual) 9 (0.0-15.0) % Absolute Seg Neuts 12.2 Band Neutrophils # 2.0 Lymphocytes # (Manual) 0.8 Monocytes # (Manual) 1.5 ABG pH (7.35-7.45) ABG pCO2 (35-45) mmHG ABG pO2 (75-100) mmHG ABG HCO3 (22-26) mEq/L ABG Total CO2 ABG Base Excess (-2.0-2.0) Lactate 2.6 H (0.20-2.00) mmol/L Sodium 160 H (136-146) mmol/L Potassium 3.4 L (3.5-5.1) mmol/L Chloride 126 H (98-110) mmol/L Carbon Dioxide 22 (21-31) mmol/L BUN 73 H (6.0-23.0) mg/dL Creatinine 1.7 H (0.6-1.5) mg/dL Est Cr Clr Drug Dosing 26.67 mL/min Estimated GFR (MDRD) 33.1 ml/min Glucose 186 H (60-110) mg/dL Calcium 7.6 L (8.8-10.8) mg/dL Magnesium 1.6 (1.5-2.3) mEq/L Creatine Kinase (9-236) IU/L 05/21/16 05/21/16 05/21/16 Range/Units 06:43 08:00 13:06 WBC (4.0-11.0) K/uL RBC (4.30-5.90) M/uL Hgb (12.0-16.0) g/dL Hct (36.0-46.0) % MCV (80.0-98.0) fL MCH (27.0-32.0) pg MCHC (31.0-37.0) g/dL RDW Std Deviation (28.0-62.0) fl RDW Coeff of Julio (11.0-15.0) % Plt Count (150-400) K/uL MPV (7.40-12.00) fL Add Manual Diff Neutrophils % (Manual) (48.0-80.0) % Band Neutrophils % % Lymphocytes % (Manual) (16.0-40.0) % Monocytes % (Manual) (0.0-15.0) % Absolute Seg Neuts Band Neutrophils # Lymphocytes # (Manual) Monocytes # (Manual) ABG pH (7.35-7.45) ABG pCO2 (35-45) mmHG ABG pO2 (75-100) mmHG ABG HCO3 (22-26) mEq/L ABG Total CO2 ABG Base Excess (-2.0-2.0) Lactate 3.3 H (0.20-2.00) mmol/L Sodium 161 H* 159 H (136-146) mmol/L Potassium (3.5-5.1) mmol/L Chloride (98-110) mmol/L Carbon Dioxide (21-31) mmol/L BUN (6.0-23.0) mg/dL Creatinine (0.6-1.5) mg/dL Est Cr Clr Drug Dosing mL/min Estimated GFR (MDRD) ml/min Glucose (60-110) mg/dL Calcium (8.8-10.8) mg/dL Magnesium (1.5-2.3) mEq/L Creatine Kinase (9-236) IU/L 05/21/16 05/21/16 Range/Units 13:06 16:03 WBC (4.0-11.0) K/uL RBC (4.30-5.90) M/uL Hgb (12.0-16.0) g/dL Hct (36.0-46.0) % MCV (80.0-98.0) fL MCH (27.0-32.0) pg MCHC (31.0-37.0) g/dL RDW Std Deviation (28.0-62.0) fl RDW Coeff of Julio (11.0-15.0) % Plt Count (150-400) K/uL MPV (7.40-12.00) fL Add Manual Diff Neutrophils % (Manual) (48.0-80.0) % Band Neutrophils % % Lymphocytes % (Manual) (16.0-40.0) % Monocytes % (Manual) (0.0-15.0) % Absolute Seg Neuts Band Neutrophils # Lymphocytes # (Manual) Monocytes # (Manual) ABG pH (7.35-7.45) ABG pCO2 (35-45) mmHG ABG pO2 (75-100) mmHG ABG HCO3 (22-26) mEq/L ABG Total CO2 ABG Base Excess (-2.0-2.0) Lactate 1.2 (0.20-2.00) mmol/L Sodium 156 H (136-146) mmol/L Potassium (3.5-5.1) mmol/L Chloride (98-110) mmol/L Carbon Dioxide (21-31) mmol/L BUN (6.0-23.0) mg/dL Creatinine (0.6-1.5) mg/dL Est Cr Clr Drug Dosing mL/min Estimated GFR (MDRD) ml/min Glucose (60-110) mg/dL Calcium (8.8-10.8) mg/dL Magnesium (1.5-2.3) mEq/L Creatine Kinase (9-236) IU/L [place] Results last 24 hrs: Microbiology 05/21/16 03:25 Legionella Antigen - Final Urine, [facility] ([place]) 05/21/16 03:25 Streptococcus pneumoniae Ag Screen - Final Urine - [place] Catheter Med Orders - Current: Current Medications Acetaminophen (Tylenol) 650 mg PO Q6H PRN PRN Reason: Fever Last Admin: 05/21/16 13:01 Dose: 650 mg Baclofen (Lioresal) 10 mg GTUBE BID [facility] Last Admin: 05/21/16 09:15 Dose: 10 mg Bisacodyl (Dulcolax) 10 mg RECTAL DAILY [facility] Last Admin: 05/21/16 09:11 Dose: Not Given Levofloxacin/Dextrose 500 mg/ (Premix) 100 mls @ 100 mls/hr IV Q48H [facility] Last Admin: 05/20/16 21:08 Dose: 100 mls/hr Piperacillin Sod/Tazobactam (Sod 2.25 gm/ Sodium Chloride) 50 mls @ 100 mls/hr IV Q6H [facility] Last Admin: 05/21/16 12:48 Dose: 100 mls/hr Dextrose/Water (Dextrose 5% In Water) 1,000 mls @ 150 mls/hr IV ASDIRECTED [facility] Last Admin: 05/21/16 12:48 Dose: 150 mls/hr Lactated Ringer's (Ringers, Lactated) 1,000 mls @ 999 mls/hr IV .BOLUS [facility] Last Admin: 05/21/16 05:06 Dose: 999 mls/hr Sodium Chloride (Normal Saline) 1,000 mls @ 999 mls/hr IV ASDIRECTED [facility] Last Admin: 05/21/16 11:38 Dose: 999 mls/hr Sertraline HCl (Zoloft) 100 mg GTUBE DAILY [facility] Last Admin: 05/21/16 09:15 Dose: 100 mg Sodium Chloride (Saline Flush) 10 ml FLUSH ASDIRECTED PRN PRN Reason: Keep Vein Open Last Admin: 05/20/16 17:40 Dose: 10 ml Sodium Chloride (Saline Flush) 2.5 ml FLUSH ASDIRECTED PRN PRN Reason: Keep Vein Open Last Admin: 05/20/16 17:40 Dose: 2.5 ml Vancomycin HCl (Pharmacy To Dose - Vancomycin) 1 dose .XX ASDIRECTED [facility] Discontinued Medications Albuterol/Ipratropium (Duoneb 3.0-0.5 Mg/3 Ml) 3 ml NEB ONETIME ONE Stop: 05/20/16 17:04 Last Admin: 05/20/16 17:11 Dose: 3 ml Fentanyl (Sublimaze) 50 mcg IVPUSH ONETIME ONE Stop: 05/21/16 01:51 Last Admin: 05/21/16 02:49 Dose: 50 mcg Fentanyl (Sublimaze) 50 mcg IVPUSH ONETIME ONE Stop: 05/21/16 03:09 Last Admin: 05/21/16 03:37 Dose: 50 mcg Fentanyl (Sublimaze) 50 mcg IVPUSH ONETIME ONE Stop: 05/21/16 08:49 Last Admin: 05/21/16 09:09 Dose: 50 mcg Fentanyl (Sublimaze) 50 mcg IVPUSH Q4H PRN PRN Reason: Pain Stop: 05/21/16 13:22 Last Admin: 05/21/16 12:47 Dose: 50 mcg Haloperidol Lactate (Haldol) 5 mg IM ONETIME ONE Stop: 05/21/16 00:47 Last Admin: 05/21/16 00:55 Dose: 5 mg Heparin Sodium (Porcine) (Heparin Sodium) 5,000 units SUBCUT Q8H [facility] Sodium Chloride (Normal Saline) 1,000 mls @ 999 mls/hr IV STAT ONE Stop: 05/20/16 17:57 Last Admin: 05/20/16 17:40 Dose: 999 mls/hr Piperacillin Sod/Tazobactam (Sod 3.375 gm/ Sodium Chloride) 50 mls @ 100 mls/ hr IV ONETIME ONE Stop: 05/20/16 19:03 Last Admin: 05/20/16 18:48 Dose: 100 mls/hr Sodium Chloride (Sodium Chloride 0.45%) 1,000 mls @ 150 mls/hr IV ASDIRECTED [facility] Last Admin: 05/20/16 21:09 Dose: 150 mls/hr Vancomycin HCl 500 mg/ Sodium (Chloride) 100 mls @ 100 mls/hr IV ONETIME ONE Stop: 05/20/16 20:59 Last Admin: 05/20/16 22:31 Dose: 100 mls/hr Lactated Ringer's (Ringers, Lactated) 1,000 mls @ 999 mls/hr IV .BOLUS ONE Stop: 05/21/16 03:50 Last Admin: 05/21/16 02:59 Dose: 999 mls/hr Sodium Chloride (Normal Saline) 1,000 mls @ 999 mls/hr IV .Bolus ONE Stop: 05/21/16 10:24 Last Admin: 05/21/16 09:44 Dose: 999 mls/hr Ondansetron HCl (Zofran) 4 mg IVPUSH ONETIME ONE Stop: 05/20/16 16:58 Last Admin: 05/20/16 17:39 Dose: 4 mg Pneumococcal Polyvalent Vaccine (Pneumovax 23) 0.5 ml IM .ONCE ONE Stop: 05/21/16 09:01 Last Admin: 05/21/16 11:43 Dose: Not Given Potassium Chloride (Klor-Con) 20 meq PO ASDIRECTED ONE Stop: 05/21/16 16:01 Last Admin: 05/21/16 15:49 Dose: 20 meq - Exam General: alert Lungs: Clear to auscultation, Normal respiratory effort Cardiovascular: regular rate, regular rhythm, tachycardia Abdomen: no tenderness Extremities: no edema, other (normal distal capillary refill) Psy/Mental Status: No: agitated - Problem List & Annotations (1) Sepsis SNOMED Code(s): 70139081 Code(s): A41.9 - SEPSIS, UNSPECIFIED ORGANISM Status: Acute Current Visit : Yes (2) Aspiration pneumonia SNOMED Code(s): 700556583 Code(s): J69.0 - PNEUMONITIS DUE TO INHALATION OF FOOD AND VOMIT Status: Chronic Priority: High Current Visit: No Qualifiers: Aspiration pneumonia type: due to gastric secretions Laterality: unspecified laterality Lung location: lower lobe of lung Annotation/Comment:: On antibiotics (3) Renal failure SNOMED Code(s): 48562214 Code(s): N19 - UNSPECIFIED KIDNEY FAILURE Status: Acute Current Visit: Yes (4) Acute renal injury SNOMED Code(s): 81434238 Code(s): N17.9 - ACUTE KIDNEY FAILURE, UNSPECIFIED Status: Acute Current Visit: Yes (5) Hypernatremia SNOMED Code(s): 30637991 Code(s): E87.0 - HYPEROSMOLALITY AND HYPERNATREMIA Status: Acute Current Visit: Yes (6) Sinus tachycardia SNOMED Code(s): 38805131 Code(s): R00.0 - TACHYCARDIA, UNSPECIFIED Status: Acute Current Visit: Yes - Problem List Review Problem List Initiated/Reviewed/Updated: Yes - My Orders Last 24 Hours: My Active Orders 05/21/16 Breakfast NPO [Nothing Per Oral Diet] [DIET] 05/22/16 05:00 CBC WITH AUTO DIFF [HEME] DAILY MAGNESIUM [CHEM] DAILY 05/22/16 05:11 COMPREHENSIVE METABOLIC PN,CMP [CHEM] AM CREATINE KINASE,CK [CHEM] AM 05/23/16 05:00 CBC WITH AUTO DIFF [HEME] DAILY MAGNESIUM [CHEM] DAILY 05/23/16 05:11 COMPREHENSIVE METABOLIC PN,CMP [CHEM] AM CREATINE KINASE,CK [CHEM] AM 05/24/16 05:11 COMPREHENSIVE METABOLIC PN,CMP [CHEM] AM CREATINE KINASE,CK [CHEM] AM - Plan Plan:: TO ICU see orders. Rizwan Barron MD 05/21/2016 sinus tachycardia has improved since this am. continued care as per BLU Barron MD
[2016-05-21] MEDS ORDERED: Metoprolol Tartrate 5 MG/5 ML SDV IVPUSH PRN (18:30)
[2016-05-21] MEDS ORDERED: Heparin Sodium 5,000 Units/ML Vial SUBCUT SCH (19:00)
[2016-05-21] MEDS ORDERED: LORazepam 2 MG/ML MDV IVPUSH PRN (22:33)
[2016-05-22] MEDS: Piperacillin/Tazobactam 2.25 GM in Sodium Chloride 0.9% 50 ML IV SCH ×2 (00:09→06:43)
[2016-05-22] MEDS: Dextrose 5% in Water 1,000 ML IV SCH (03:32)
[2016-05-22 04:35] LABS: CHLORIDE,CL 123 mmol/L (98-110); SODIUM,NA 152 mmol/L (136-146)
[2016-05-22] MEDS ORDERED: Sodium Bicarbonate 150 MEQ in Dextrose 5% in Water 1,000 ML IV SCH ×2 (06:30)
[2016-05-22] MEDS ORDERED: Potassium Chloride 40 MEQ in Dextrose 5% in Water 1,000 ML IV SCH ×2 (08:30)
[2016-05-22 08:35] LABS: CHLORIDE,CL 121 mmol/L (98-110); SODIUM,NA 151 mmol/L (136-146)
[2016-05-22] MEDS: Bisacodyl 10 MG Supp RECTAL SCH (08:46)
[2016-05-22] MEDS: Sertraline 100 MG Tab GTUBE SCH (08:46)
[2016-05-22] MEDS: Baclofen 10 MG Tab GTUBE SCH (08:46)
--- NOTE | 2016-05-22 09:28 | PCM.DCSUM1 ---
Discharge Summary - Hospital Course Brief History: admitted for treatment of pneumonia, sepsis , hypernatremia and acute renal failure. - Discharge Data Discharge Date: 05/22/16 Discharge Disposition: DC/Tfer to [facility] Condition: Critical - Discharge Diagnosis/Problem(s) (1) Sepsis SNOMED Code(s): 57427887 ICD Code: A41.9 - SEPSIS, UNSPECIFIED ORGANISM Status: Acute Current Visit: Yes (2) Aspiration pneumonia SNOMED Code(s): 598322260 ICD Code: J69.0 - PNEUMONITIS DUE TO INHALATION OF FOOD AND VOMIT Status: Chronic Priority: High Current Visit: No Problem Details: On antibiotics Qualifiers: Aspiration pneumonia type: due to gastric secretions Laterality: unspecified laterality Lung location: lower lobe of lung (3) Renal failure SNOMED Code(s): 49804541 ICD Code: N19 - UNSPECIFIED KIDNEY FAILURE Status: Acute Current Visit: Yes (4) Acute renal injury SNOMED Code(s): 01583214 ICD Code: N17.9 - ACUTE KIDNEY FAILURE, UNSPECIFIED Status: Acute Current Visit: Yes (5) Hypernatremia SNOMED Code(s): 33356511 ICD Code: E87.0 - HYPEROSMOLALITY AND HYPERNATREMIA Status: Acute Current Visit: Yes (6) Sinus tachycardia SNOMED Code(s): 82548779 ICD Code: R00.0 - TACHYCARDIA, UNSPECIFIED Status: Acute Current Visit: Yes - Patient Summary/Data Operative Procedure(s) Performed: Open gastrostomy tube placement Hospital Course: she was monitored in the ICU. Hypotonic crystalloid was administered intravenously. She was started on broad spectrum antibiotics including zosyn, vancomycin and levaquin. Her serum creatinine decreased. She was started on heparin initially but this was discontinued when it was noted that her platelets had dropped. EICU physicians were also involved in her management. On the morning of 05/22/2016 it was noted that her CK has increased to over 59, 000. Her LFT's were increased. Her urine appears tea colored. Her Na had improved to 152. At the time of transfer the capillary refill in her toes is about four seconds. urine drug screen , PT/PTT , fibrinogen, fibrin degradation products, D dimer tests are pending. Impression: rhabdomyolysis of uncertain etiology consider DIC pneumonia history of cerebral palsy electrolyte disturbance. I spoke with EICU physicians. I spoke with her primary outpatient attending physician, Dr. Maile Luevano. I spoke with Dr Rizwan Toledo who agrees to accept in transfer to a higher level of care. Rizwan Barron MD - Discharge Plan Home Medications: Home Meds EPINEPHrine [Epipen] 0.3 mg PO ASDIRECTED 01/11/15 [History] Cyanocobalamin (Vitamin B12) [Vitamin B12] 1,000 mcg PEGTUBE DAILY #0 01/19/15 [Rx] Multivitamin [Multi-Vitamin Daily] 1 tab PEGTUBE DAILY #0 01/19/15 [Rx] Sertraline [Zoloft] 100 mg PEGTUBE DAILY #0 01/19/15 [Rx] diphenhydrAMINE [Benadryl] 25 mg PEGTUBE Q6HR PRN #0 01/19/15 [Rx] Baclofen 10 mg PEGTUBE ASDIRECTED 05/15/15 [History] Bisacodyl [Dulcolax] 10 mg RECTAL DAILY 05/15/15 [History] medroxyPROGESTERone Acetate [Depo-Provera] 150 mg IM ASDIRECTED 05/15/15 [ History] Azithromycin 500 mg PO DAILY 05/20/16 [History] Dextromethorphan HBr [Tussin Cough] 15 mg PO 05/20/16 [History] Forms: ED Department Discharge Referrals: Yosvany Luevano MD [Primary Care Provider] - - Patient Data Vitals - Most Recent: Last Vital Signs Temp 97.8 F 05/22/16 08:00 Pulse 107 H 05/22/16 08:00 Resp 32 H 05/22/16 08:00 BP 106/77 05/22/16 08:00 Pulse Ox 97 05/22/16 08:00 Weight - Most Recent: 39.5 kg I&O - Last 24 hours: Intake & Output 05/21/16 05/22/16 05/22/16 22:59 06:59 14:59 Intake Total 1175 1100 Output Total 1100 1000 Balance 75 100 Lab Results - Last 24 hrs: Laboratory Results - last 24 hr 05/21/16 05/21/16 05/21/16 Range/Units 13:06 13:06 16:03 WBC (4.0-11.0) K/uL RBC (4.30-5.90) M/uL Hgb (12.0-16.0) g/dL Hct (36.0-46.0) % MCV (80.0-98.0) fL MCH (27.0-32.0) pg MCHC (31.0-37.0) g/dL RDW Std Deviation (28.0-62.0) fl RDW Coeff of Julio (11.0-15.0) % Plt Count (150-400) K/uL MPV (7.40-12.00) fL Neut % (Auto) (48.0-80.0) % Lymph % (Auto) (16.0-40.0) % Coke % (Auto) (0.0-15.0) % Eos % (Auto) (0.0-7.0) % Baso % (Auto) (0.0-1.5) % Neut # (1.4-5.7) K/uL Lymph # (0.6-2.4) K/uL Coke # (0.0-0.8) K/uL Eos # (0.0-0.7) K/uL Baso # (0.0-0.1) K/uL Nucleated RBC % /100WBC Nucleated RBCs # K/uL Ionized Calcium (4.6-5.1) mg/dL Lactate 1.2 (0.20-2.00) mmol/L Sodium 159 H 156 H (136-146) mmol/L Potassium (3.5-5.1) mmol/L Chloride (98-110) mmol/L Carbon Dioxide (21-31) mmol/L BUN (6.0-23.0) mg/dL Creatinine (0.6-1.5) mg/dL Est Cr Clr Drug Dosing mL/min Estimated GFR (MDRD) ml/min Glucose (60-110) mg/dL Calcium (8.8-10.8) mg/dL Phosphorus (2.4-4.7) mg/dL Magnesium (1.5-2.3) mEq/L Total Bilirubin (0.1-1.5) mg/dL AST (5-40) IU/L ALT (8-54) IU/L Alkaline Phosphatase (40-150) Creatine Kinase (9-236) IU/L Total Protein (6.0-8.0) g/dL Albumin (3.5-5.0) g/dL Globulin (2.0-3.5) g/dL Albumin/Globulin Ratio (1.3-2.8) Amylase (10-90) U/L Lipase (7-80) U/L Free T4 (0.7-1.48) ng/dL TSH 3rd Generation (0.47-5.0) uIU/mL 05/21/16 05/22/16 05/22/16 Range/Units 20:01 00:15 04:05 WBC (4.0-11.0) K/uL RBC (4.30-5.90) M/uL Hgb (12.0-16.0) g/dL Hct (36.0-46.0) % MCV (80.0-98.0) fL MCH (27.0-32.0) pg MCHC (31.0-37.0) g/dL RDW Std Deviation (28.0-62.0) fl RDW Coeff of Julio (11.0-15.0) % Plt Count (150-400) K/uL MPV (7.40-12.00) fL Neut % (Auto) (48.0-80.0) % Lymph % (Auto) (16.0-40.0) % Coke % (Auto) (0.0-15.0) % Eos % (Auto) (0.0-7.0) % Baso % (Auto) (0.0-1.5) % Neut # (1.4-5.7) K/uL Lymph # (0.6-2.4) K/uL Coke # (0.0-0.8) K/uL Eos # (0.0-0.7) K/uL Baso # (0.0-0.1) K/uL Nucleated RBC % /100WBC Nucleated RBCs # K/uL Ionized Calcium (4.6-5.1) mg/dL Lactate (0.20-2.00) mmol/L Sodium 157 H 153 H (136-146) mmol/L Potassium (3.5-5.1) mmol/L Chloride (98-110) mmol/L Carbon Dioxide (21-31) mmol/L BUN (6.0-23.0) mg/dL Creatinine (0.6-1.5) mg/dL Est Cr Clr Drug Dosing mL/min Estimated GFR (MDRD) ml/min Glucose (60-110) mg/dL Calcium (8.8-10.8) mg/dL Phosphorus (2.4-4.7) mg/dL Magnesium 1.6 (1.5-2.3) mEq/L Total Bilirubin (0.1-1.5) mg/dL AST (5-40) IU/L ALT (8-54) IU/L Alkaline Phosphatase (40-150) Creatine Kinase (9-236) IU/L Total Protein (6.0-8.0) g/dL Albumin (3.5-5.0) g/dL Globulin (2.0-3.5) g/dL Albumin/Globulin Ratio (1.3-2.8) Amylase (10-90) U/L Lipase (7-80) U/L Free T4 (0.7-1.48) ng/dL TSH 3rd Generation (0.47-5.0) uIU/mL 05/22/16 05/22/16 05/22/16 Range/Units 04:05 04:05 04:05 WBC (4.0-11.0) K/uL RBC (4.30-5.90) M/uL Hgb (12.0-16.0) g/dL Hct (36.0-46.0) % MCV (80.0-98.0) fL MCH (27.0-32.0) pg MCHC (31.0-37.0) g/dL RDW Std Deviation (28.0-62.0) fl RDW Coeff of Julio (11.0-15.0) % Plt Count (150-400) K/uL MPV (7.40-12.00) fL Neut % (Auto) (48.0-80.0) % Lymph % (Auto) (16.0-40.0) % Coke % (Auto) (0.0-15.0) % Eos % (Auto) (0.0-7.0) % Baso % (Auto) (0.0-1.5) % Neut # (1.4-5.7) K/uL Lymph # (0.6-2.4) K/uL Coke # (0.0-0.8) K/uL Eos # (0.0-0.7) K/uL Baso # (0.0-0.1) K/uL Nucleated RBC % /100WBC Nucleated RBCs # K/uL Ionized Calcium (4.6-5.1) mg/dL Lactate (0.20-2.00) mmol/L Sodium 152 H 152 H (136-146) mmol/L Potassium 2.7 L (3.5-5.1) mmol/L Chloride 123 H (98-110) mmol/L Carbon Dioxide 20 L (21-31) mmol/L BUN 30 H (6.0-23.0) mg/dL Creatinine 1.0 (0.6-1.5) mg/dL Est Cr Clr Drug Dosing 45.35 mL/min Estimated GFR (MDRD) > 60.0 ml/min Glucose 194 H (60-110) mg/dL Calcium 6.7 L (8.8-10.8) mg/dL Phosphorus (2.4-4.7) mg/dL Magnesium (1.5-2.3) mEq/L Total Bilirubin 1.7 H (0.1-1.5) mg/dL AST 581 H (5-40) IU/L ALT 168 H (8-54) IU/L Alkaline Phosphatase 59 (40-150) Creatine Kinase 41095 H (9-236) IU/L Total Protein 5.1 L (6.0-8.0) g/dL Albumin 2.5 L (3.5-5.0) g/dL Globulin 2.6 (2.0-3.5) g/dL Albumin/Globulin Ratio 1.0 L (1.3-2.8) Amylase 148 H (10-90) U/L Lipase 65 (7-80) U/L Free T4 (0.7-1.48) ng/dL TSH 3rd Generation (0.47-5.0) uIU/mL 05/22/16 05/22/16 05/22/16 Range/Units 04:35 07:37 07:37 WBC 16.86 H (4.0-11.0) K/uL RBC 3.61 L (4.30-5.90) M/uL Hgb 12.2 (12.0-16.0) g/dL Hct 37.6 (36.0-46.0) % MCV 104.2 H (80.0-98.0) fL MCH 33.8 H (27.0-32.0) pg MCHC 32.4 (31.0-37.0) g/dL RDW Std Deviation 50.4 (28.0-62.0) fl RDW Coeff of Julio 14 (11.0-15.0) % Plt Count 74 L (150-400) K/uL MPV 13.10 H (7.40-12.00) fL Neut % (Auto) 86.5 H (48.0-80.0) % Lymph % (Auto) 7.2 L (16.0-40.0) % Coke % (Auto) 6.2 (0.0-15.0) % Eos % (Auto) 0.0 (0.0-7.0) % Baso % (Auto) 0.1 (0.0-1.5) % Neut # 14.6 H (1.4-5.7) K/uL Lymph # 1.2 (0.6-2.4) K/uL Coke # 1.1 H (0.0-0.8) K/uL Eos # 0.0 (0.0-0.7) K/uL Baso # 0.0 (0.0-0.1) K/uL Nucleated RBC % /100WBC Nucleated RBCs # K/uL Ionized Calcium 3.7 L (4.6-5.1) mg/dL Lactate (0.20-2.00) mmol/L Sodium 150 H (136-146) mmol/L Potassium (3.5-5.1) mmol/L Chloride (98-110) mmol/L Carbon Dioxide (21-31) mmol/L BUN (6.0-23.0) mg/dL Creatinine (0.6-1.5) mg/dL Est Cr Clr Drug Dosing mL/min Estimated GFR (MDRD) ml/min Glucose (60-110) mg/dL Calcium (8.8-10.8) mg/dL Phosphorus (2.4-4.7) mg/dL Magnesium (1.5-2.3) mEq/L Total Bilirubin (0.1-1.5) mg/dL AST (5-40) IU/L ALT (8-54) IU/L Alkaline Phosphatase (40-150) Creatine Kinase (9-236) IU/L Total Protein (6.0-8.0) g/dL Albumin (3.5-5.0) g/dL Globulin (2.0-3.5) g/dL Albumin/Globulin Ratio (1.3-2.8) Amylase (10-90) U/L Lipase (7-80) U/L Free T4 (0.7-1.48) ng/dL TSH 3rd Generation (0.47-5.0) uIU/mL 05/22/16 05/22/16 05/22/16 Range/Units 07:37 07:37 08:37 WBC 16.23 H (4.0-11.0) K/uL RBC 3.85 L (4.30-5.90) M/uL Hgb 12.9 (12.0-16.0) g/dL Hct 38.9 (36.0-46.0) % MCV 101.0 H (80.0-98.0) fL MCH 33.5 H (27.0-32.0) pg MCHC 33.2 (31.0-37.0) g/dL RDW Std Deviation 52.2 (28.0-62.0) fl RDW Coeff of Julio 14 (11.0-15.0) % Plt Count 60 L (150-400) K/uL MPV 13.80 H (7.40-12.00) fL Neut % (Auto) 85.4 H (48.0-80.0) % Lymph % (Auto) 9.0 L (16.0-40.0) % Coke % (Auto) 5.5 (0.0-15.0) % Eos % (Auto) 0.0 (0.0-7.0) % Baso % (Auto) 0.1 (0.0-1.5) % Neut # 13.9 H (1.4-5.7) K/uL Lymph # 1.5 (0.6-2.4) K/uL Coke # 0.9 H (0.0-0.8) K/uL Eos # 0.0 (0.0-0.7) K/uL Baso # 0.0 (0.0-0.1) K/uL Nucleated RBC % 0.0 /100WBC Nucleated RBCs # 0 K/uL Ionized Calcium (4.6-5.1) mg/dL Lactate (0.20-2.00) mmol/L Sodium 151 H (136-146) mmol/L Potassium 3.3 L (3.5-5.1) mmol/L Chloride 121 H (98-110) mmol/L Carbon Dioxide 20 L (21-31) mmol/L BUN 27 H (6.0-23.0) mg/dL Creatinine 0.9 (0.6-1.5) mg/dL Est Cr Clr Drug Dosing 51.29 mL/min Estimated GFR (MDRD) > 60.0 ml/min Glucose 151 H (60-110) mg/dL Calcium 6.9 L (8.8-10.8) mg/dL Phosphorus 2.3 L (2.4-4.7) mg/dL Magnesium 1.5 (1.5-2.3) mEq/L Total Bilirubin 1.9 H (0.1-1.5) mg/dL AST 713 H (5-40) IU/L ALT 203 H (8-54) IU/L Alkaline Phosphatase 62 (40-150) Creatine Kinase (9-236) IU/L Total Protein 5.2 L (6.0-8.0) g/dL Albumin 2.6 L (3.5-5.0) g/dL Globulin 2.6 (2.0-3.5) g/dL Albumin/Globulin Ratio 1.0 L (1.3-2.8) Amylase (10-90) U/L Lipase (7-80) U/L Free T4 0.69 L (0.7-1.48) ng/dL TSH 3rd Generation 2.77 (0.47-5.0) uIU/mL GIULIANO Results - Last 24 hrs: Microbiology 05/21/16 03:25 Legionella Antigen - Final Urine, [place] Cath ([place]) 05/21/16 03:25 Streptococcus pneumoniae Ag Screen - Final Urine - [place] Catheter Med Orders - Current: Current Medications Baclofen (Lioresal) 10 mg GTUBE BID AGUS Last Admin: 05/22/16 08:46 Dose: Not Given Bisacodyl (Dulcolax) 10 mg RECTAL DAILY [facility] Last Admin: 05/22/16 08:46 Dose: Not Given Lactated Ringer's (Ringers, Lactated) 1,000 mls @ 999 mls/hr IV .BOLUS [facility] Last Admin: 05/21/16 05:06 Dose: 999 mls/hr Sodium Chloride (Normal Saline) 1,000 mls @ 999 mls/hr IV ASDIRECTED [facility] Last Admin: 05/21/16 11:38 Dose: 999 mls/hr Vancomycin HCl 750 mg/ Sodium (Chloride) 100 mls @ 66.667 mls/hr IV Q12H [facility] Last Admin: 05/22/16 07:41 Dose: 66.667 mls/hr Piperacillin Sod/Tazobactam (Sod 4.5 gm/ Sodium Chloride) 100 mls @ 200 mls/hr IV Q6H [facility] Sodium Bicarbonate 150 meq/Potassium Chloride 40 meq/Dextrose/Water 1,170 mls @ 300 mls/hr IV ASDIRECTED [facility] Levofloxacin/Dextrose 500 mg/ (Premix) 100 mls @ 100 mls/hr IV Q24H AGUS Lorazepam (Ativan) 0.5 mg IVPUSH Q4H PRN PRN Reason: Agitation Last Admin: 05/21/16 22:51 Dose: 0.5 mg Metoprolol Tartrate (Lopressor) 5 mg IVPUSH Q6H PRN PRN Reason: PRN HR > 110 with a SBP > 100 Last Admin: 05/21/16 18:47 Dose: 5 mg Sertraline HCl (Zoloft) 100 mg GTUBE DAILY [facility] Last Admin: 05/22/16 08:46 Dose: Not Given Sodium Chloride (Saline Flush) 10 ml FLUSH ASDIRECTED PRN PRN Reason: Keep Vein Open Last Admin: 05/20/16 17:40 Dose: 10 ml Sodium Chloride (Saline Flush) 2.5 ml FLUSH ASDIRECTED PRN PRN Reason: Keep Vein Open Last Admin: 05/20/16 17:40 Dose: 2.5 ml Vancomycin HCl (Pharmacy To Dose - Vancomycin) 1 dose .XX ASDIRECTED [facility] Discontinued Medications Acetaminophen (Tylenol) 650 mg PO Q6H PRN PRN Reason: Fever Last Admin: 05/21/16 13:01 Dose: 650 mg Albuterol/Ipratropium (Duoneb 3.0-0.5 Mg/3 Ml) 3 ml NEB ONETIME ONE Stop: 05/20/16 17:04 Last Admin: 05/20/16 17:11 Dose: 3 ml Fentanyl (Sublimaze) 50 mcg IVPUSH ONETIME ONE Stop: 05/21/16 01:51 Last Admin: 05/21/16 02:49 Dose: 50 mcg Fentanyl (Sublimaze) 50 mcg IVPUSH ONETIME ONE Stop: 05/21/16 03:09 Last Admin: 05/21/16 03:37 Dose: 50 mcg Fentanyl (Sublimaze) 50 mcg IVPUSH ONETIME ONE Stop: 05/21/16 08:49 Last Admin: 05/21/16 09:09 Dose: 50 mcg Fentanyl (Sublimaze) 50 mcg IVPUSH Q4H PRN PRN Reason: Pain Stop: 05/21/16 13:22 Last Admin: 05/21/16 12:47 Dose: 50 mcg Haloperidol Lactate (Haldol) 5 mg IM ONETIME ONE Stop: 05/21/16 00:47 Last Admin: 05/21/16 00:55 Dose: 5 mg Heparin Sodium (Porcine) (Heparin Sodium) 5,000 units SUBCUT Q8H [facility] Sodium Chloride (Normal Saline) 1,000 mls @ 999 mls/hr IV STAT ONE Stop: 05/20/16 17:57 Last Admin: 05/20/16 17:40 Dose: 999 mls/hr Piperacillin Sod/Tazobactam (Sod 3.375 gm/ Sodium Chloride) 50 mls @ 100 mls/ hr IV ONETIME ONE Stop: 05/20/16 19:03 Last Admin: 05/20/16 18:48 Dose: 100 mls/hr Levofloxacin/Dextrose 500 mg/ (Premix) 100 mls @ 100 mls/hr IV Q48H [facility] Last Admin: 05/20/16 21:08 Dose: 100 mls/hr Piperacillin Sod/Tazobactam (Sod 2.25 gm/ Sodium Chloride) 50 mls @ 100 mls/hr IV Q6H [facility] Last Admin: 05/22/16 06:43 Dose: 100 mls/hr Sodium Chloride (Sodium Chloride 0.45%) 1,000 mls @ 150 mls/hr IV ASDIRECTED [facility] Last Admin: 05/20/16 21:09 Dose: 150 mls/hr Vancomycin HCl 500 mg/ Sodium (Chloride) 100 mls @ 100 mls/hr IV ONETIME ONE Stop: 05/20/16 20:59 Last Admin: 05/20/16 22:31 Dose: 100 mls/hr Dextrose/Water (Dextrose 5% In Water) 1,000 mls @ 150 mls/hr IV ASDIRECTED [facility] Last Admin: 05/22/16 03:32 Dose: 150 mls/hr Lactated Ringer's (Ringers, Lactated) 1,000 mls @ 999 mls/hr IV .BOLUS ONE Stop: 05/21/16 03:50 Last Admin: 05/21/16 02:59 Dose: 999 mls/hr Sodium Chloride (Normal Saline) 1,000 mls @ 999 mls/hr IV .Bolus ONE Stop: 05/21/16 10:24 Last Admin: 05/21/16 09:44 Dose: 999 mls/hr Sodium Bicarbonate 150 meq/ (Dextrose/Water) 1,150 mls @ 150 mls/hr IV ASDIRECTED [facility] Ondansetron HCl (Zofran) 4 mg IVPUSH ONETIME ONE Stop: 05/20/16 16:58 Last Admin: 05/20/16 17:39 Dose: 4 mg Pneumococcal Polyvalent Vaccine (Pneumovax 23) 0.5 ml IM .ONCE ONE Stop: 05/21/16 09:01 Last Admin: 05/21/16 11:43 Dose: Not Given Potassium Chloride (Klor-Con) 20 meq PO ASDIRECTED ONE Stop: 05/21/16 16:01 Last Admin: 05/21/16 15:49 Dose: 20 meq *Q Meaningful Use (DIS) - VTE *Q VTE Criteria *Q: - Stroke *Q Stroke Criteria *Q: - AMI *Q AMI Criteria *Q:
--- NOTE | 2016-05-22 10:01 | US ---
EXAMINATION: Right upper quadrant ultrasound HISTORY: Elevated liver enzymes COMPARISON: CT dated 05/16/2015, ultrasound dated 10/31/2009 TECHNIQUE: Grayscale and color Doppler images obtained of the right upper quadrant. FINDINGS: The pancreas is not well characterized. The liver is normal in contour and echogenicity. T here is a 1.8 cm hyperechoic mass. This corresponds to a similar hypodensity noted on a previous non contrast CT which demonstrated several hypodensities. The gallbladder wall thickness is normal. No p ericholecystic fluid or shadowing gallstones. The common bile duct measures 3 mm. The right kidney m easures at least 10.6 cm [id number] without evidence of hydronephrosis. A negative sonographic Mur phy's sign. IMPRESSION: 1. Hemangiomas noted within the liver. 2. No acute findings within the right upper quadrant.
[2016-05-22 10:14] VITALS: BP 105/77
[2016-05-22] MEDS ORDERED: Piperacillin/Tazobactam 4.5 GM in Sodium Chloride 0.9% 100 ML IV SCH (13:00)
--- NOTE | 2016-05-22 16:43 | CR ---
EXAM DATE: 05/20/16 PATIENT'S AGE: 40 Patient: AILYN LEE Facility: [place], [place] Site . Site : 1975 Study: XRay Chest [id number]/25/2017 11:39:28 PM Ordering Physician: Beatrice Astorga Final Report: INDICATION: Tachypnea. Suspect pneumonia. Technique: Single-view chest. Findings: Heart size normal. 1.5 cm rounded nodular opacity projected in the right lower chest laterally is likely a nipple shadow. This could be confirmed with nipple markers. Increased bronchovascular markings in the lower lobes greatest in the left lower lobe posteromedially may be inflammatory. No focal dense infiltrate or consolidation in either lung. G-tube. Remainder negative. Dictated by Chaz Quevedo MD @ May 21 2016 12:11AM (Electronic Signature) Report Signed by Proxy and Original Signed Document filed in the Medical Record. MTDD
[2016-05-22] MEDS ORDERED: Levofloxacin/Dextrose 5%-Water 500 MG in Premix Bag 1 BAG IV SCH (21:00)
== END 2016-05-22 10:00 | DRG 871 ==
LOC: MW.ED 16:23 → MW.ICU 18:36 → MW.ED 20:25 → MW.ICU 21:03 → UNDOADMIN 21:03 → UNDODISIN 05-22 10:00
PROVIDERS: ADMIT Family Medicine; ATTEND Family Medicine
DX: A41.9 Sepsis, unspecified organism (principal); J69.0 Pneumonitis due to inhalation of food and vomit; E86.0 Dehydration; N17.9 Acute kidney failure, unspecified; E87.0 Hyperosmolality and hypernatremia; M62.82 Rhabdomyolysis; R00.0 Tachycardia, unspecified; G80.9 Cerebral palsy, unspecified; E87.8 Other disorders of electrolyte and fluid balance, not elsewhere classified; F79 Unspecified intellectual disabilities; F93.0 Separation anxiety disorder of childhood; E53.8 Deficiency of other specified B group vitamins; Z93.1 Gastrostomy status; Z91.040 Latex allergy status; Z88.8 Allergy status to other drugs, medicaments and biological substances; Z79.899 Other long term (current) drug therapy
CPT/HCPCS: 36415; 80053; 81001; 83605; 83690; 85025; 87040 ×2; 87086; 87804 ×2; 94664; 96361; 96365; 96375; 99284; J2405; J2543; J7040; J7050; 36600; 71010; 71010-26; 76705; 76705-26; 80048; 80305; 82150; 82175; 82300; 82330; 82495; 82550; 82570; 82803; 83018; 83655; 83735; 83825; 83885; 84100; 84255; 84295; 84439; 84443; 84630; 85379; 85384; 85610; 85730; 99285; A9270-GY; J1630; J1956; J2060; J3010; J3370; J3480; J7030; J7060; J7120

== ENCOUNTER 2016-06-01 16:37 | Emergency (ER) | payer MEDICARE, MEDICAID ==
[2016-06-01] MEDS ORDERED: Sodium Chloride 0.9% 2.5 ML Syringe FLUSH PRN (16:54)
[2016-06-01] MEDS ORDERED: Sodium Chloride 0.9% 10 ML Syringe FLUSH PRN (16:54)
--- NOTE | 2016-06-01 16:59 | EDM.PDOC ---
ED HPI GENERAL MEDICAL PROBLEM - General Chief Complaint: General Stated Complaint: SEIZURE Time Seen by Provider: 06/01/16 16:45 Source of Information: Reports: Family History Limitations: Reports: No limitations - History of Present Illness INITIAL COMMENTS - FREE TEXT/NARRATIVE: HISTORY AND PHYSICAL: [40-year-old female brought by EMS related to 2 suspected seizure activity] History of Present Illness: [Patient has cerebral palsy. Gastrostomy tube present. Recently he has been released from [facility] in [facility], for pneumonia (yesterday)] Review of Systems: As per history of present illness and below otherwise all systems reviewed and negative. Past medical history: As per history of present illness and as reviewed below otherwise noncontributory. Surgical history: As per history of present illness and as reviewed below otherwise noncontributory. Social history: No reported history of drug or alcohol abuse. Family history: As per history of present illness and as reviewed below otherwise noncontributory. Physical exam: Alert female, who will look at you. HEENT: Atraumatic, normocehpalic, pupils reactive, negative for conjunctival pallor or scleral icterus, mucous membranes moist, throat clear, neck supple, nontender, trachea midline. Lungs: Clear to auscultation, breath sounds equal bilaterally, chest non tender. Heart: S1S2, regular, negative for clicks, rubs, or JVD. Abdomen: Soft, nondistended, nontender. Negative for masses or hepatossplenmegaly. Negative for costovertebral tenderness. Extremities: Atraumatic, negative for cords or calf pain. Neurovascular unremarkable. Neuro: Awake, alert, oriented. Cranial nerves II through XII unremarkable. Cerebellum unremarkable. Motor and sensory unremarkable throughout. Exam nonfocal. Diagnostics: [CBC CMP prolactin chest xray] Therapeutics: [] Impression: [cough with tracheal spasm likely] Plan: [home Keep appt scheduled with PCP in 2 days] Definitive disposition and diagnosis as appropriate pending reevaluation and review of above. Onset: sudden Duration: Minutes:, Resolved prior to arrival Location: Reports: generalized Severity: moderate Improves with: Reports: None - Related Data Allergies Allergy/AdvReac Type Severity Reaction Status Date / Time avocado Allergy Rash Verified 06/01/16 16:51 kiwi Allergy Rash Verified 06/01/16 16:51 latex Allergy Hives Verified 06/01/16 16:51 Latex, Natural Rubber Allergy Rash Verified 06/01/16 16:51 Sulfa (Sulfonamide Allergy Rash Verified 06/01/16 16:51 Antibiotics) sulfamethoxazole Allergy Hives Verified 06/01/16 16:51 [From Bactrim] trimethoprim [From Bactrim] Allergy Hives Verified 06/01/16 16:51 chestnuts Allergy Rash Uncoded 06/01/16 16:51 Home Meds: Home Meds EPINEPHrine [Epipen] 0.3 mg PO ASDIRECTED 01/11/15 [History] Cyanocobalamin (Vitamin B12) [Vitamin B12] 1,000 mcg PEGTUBE DAILY #0 01/19/15 [Rx] Multivitamin [Multi-Vitamin Daily] 1 tab PEGTUBE DAILY #0 01/19/15 [Rx] Sertraline [Zoloft] 100 mg PEGTUBE DAILY #0 01/19/15 [Rx] diphenhydrAMINE [Benadryl] 25 mg PEGTUBE Q6HR PRN #0 01/19/15 [Rx] Baclofen 10 mg PEGTUBE ASDIRECTED 05/15/15 [History] Bisacodyl [Dulcolax] 10 mg RECTAL DAILY 05/15/15 [History] medroxyPROGESTERone Acetate [Depo-Provera] 150 mg IM ASDIRECTED 05/15/15 [ History] Dextromethorphan HBr [Tussin Cough] 15 mg PO 05/20/16 [History] Past Medical History HEENT History: Reports: None Cardiovascular History: Reports: None Respiratory History: Reports: None, Other (see below) Other Respiratory History: Aspiration Pneumonia Gastrointestinal History: Reports: Other (see below) Other Gastrointestinal History: Gtube Genitourinary History: Reports: UTI, recurrent [employer] History: Reports: Other (see below) Other OB/BYN History: Ovarian torsion Musculoskeletal History: Reports: None Neurological History: Reports: Cerebral palsy Other Neuro History: Microcephalic Psychiatric History: Reports: Other (see below) Other Psychiatric History: separation anxiety, intellectual disability Endocrine/Metabolic History: Reports: None Hematologic History: Reports: B12 deficiency Immunologic History: Reports: None Oncologic (Cancer) History: Reports: None Dermatologic History: Reports: None - Infectious Disease History Infectious Disease History: Reports: None - Past Surgical History Head Surgeries/Procedures: Reports: None Cardiovascular Surgical History: Reports: None Respiratory Surgical History: Reports: None GI Surgical History: Reports: Appendectomy, Colonoscopy Female Surgical History: Reports: Other (see below) Other Female Surgeries/Procedures: Oopherectomy Other Neurological Surgeries/Procedures: Baclofen pump implant 01-21-02, baclofen removal Other Musculoskeletal Surgeries/Procedures:: Hamstring strech/lengthening Social & Family History - Family History Family Medical History: Noncontributory - Tobacco Use Smoking Status *Q: Never Smoker Second Hand Smoke Exposure: No - Caffeine Use Caffeine Use: Reports: None - Recreational Drug Use Recreational Drug Use: No - Living Situation & Occupation Living situation: Reports: extended care facility ([facility] ) ED ROS GENERAL - Review of Systems Review Of Systems: See Below Constitutional: Reports: no symptoms Respiratory: Reports: cough, sputum Cardiovascular: Reports: No symptoms Endocrine: Reports: no symptoms GI/Abdominal: Reports: No symptoms : Reports: no symptoms Musculoskeletal: Reports: no symptoms Skin: Reports: no symptoms ED EXAM, GENERAL - Physical Exam Exam: See Below (See dictation) Course - Vital Signs Last Recorded V/S: Last Vital Signs Temp 36.3 C 06/01/16 16:52 Pulse 107 H 06/01/16 16:52 Resp 20 06/01/16 16:52 BP 142/103 H 06/01/16 16:52 Pulse Ox 94 L 06/01/16 16:52 - Orders/Labs/Meds Orders: Active Orders 24 hr Category Date Time Status Chest 1V Frontal [CR] Stat Exams 06/01/16 16:54 Taken Sodium Chloride 0.9% [Saline Flush] Med 06/01/16 16:54 Active 10 ml FLUSH ASDIRECTED PRN Sodium Chloride 0.9% [Saline Flush] Med 06/01/16 16:54 Active 2.5 ml FLUSH ASDIRECTED PRN Saline Lock Insert [OM.PC] Stat Oth 06/01/16 16:54 Ordered Medication Orders Sodium Chloride (Saline Flush) 10 ml FLUSH ASDIRECTED PRN PRN Reason: Keep Vein Open Sodium Chloride (Saline Flush) 2.5 ml FLUSH ASDIRECTED PRN PRN Reason: Keep Vein Open Labs: Laboratory Tests 06/01/16 06/01/16 Range/Units 17:20 17:47 WBC 12.18 H (4.0-11.0) K/uL RBC 3.58 L (4.30-5.90) M/uL Hgb 12.1 (12.0-16.0) g/dL Hct 36.0 (36.0-46.0) % MCV 100.6 H (80.0-98.0) fL MCH 33.8 H (27.0-32.0) pg MCHC 33.6 (31.0-37.0) g/dL RDW Std Deviation 50.6 (28.0-62.0) fl RDW Coeff of Julio 14 (11.0-15.0) % Plt Count 295 (150-400) K/uL MPV 10.80 (7.40-12.00) fL Add Manual Diff YES Neutrophils % (Manual) 81 H (48.0-80.0) % Band Neutrophils % 6 % Lymphocytes % (Manual) 10 L (16.0-40.0) % Monocytes % (Manual) 3 (0.0-15.0) % Nucleated RBC % 0.0 /100WBC Absolute Seg Neuts 9.9 Band Neutrophils # 0.7 Lymphocytes # (Manual) 1.2 Monocytes # (Manual) 0.4 Nucleated RBCs # 0 K/uL Sodium 139 (136-146) mmol/L Potassium 4.2 (3.5-5.1) mmol/L Chloride 104 (98-110) mmol/L Carbon Dioxide 24 (21-31) mmol/L BUN 23 (6.0-23.0) mg/dL Creatinine 0.8 (0.6-1.5) mg/dL Est Cr Clr Drug Dosing TNP Estimated GFR (MDRD) > 60.0 ml/min Glucose 92 (60-110) mg/dL Calcium 9.2 (8.8-10.8) mg/dL Total Bilirubin 0.4 (0.1-1.5) mg/dL AST 121 H (5-40) IU/L ALT 191 H (8-54) IU/L Alkaline Phosphatase 107 (40-150) Total Protein 6.9 (6.0-8.0) g/dL Albumin 3.4 L (3.5-5.0) g/dL Globulin 3.5 (2.0-3.5) g/dL Albumin/Globulin Ratio 1.0 L (1.3-2.8) Prolactin 19 (0-27) ng/mL Meds: Medications Generic Name Dose Route Start Last Admin Trade Name Freq PRN Reason Stop Dose Admin Sodium Chloride 10 ml 06/01/16 16:54 Saline Flush FLUSH ASDIRECTED PRN Keep Vein Open Sodium Chloride 2.5 ml 06/01/16 16:54 Saline Flush FLUSH ASDIRECTED PRN Keep Vein Open Departure - Departure Time of Disposition: 19:08 Disposition: Home, Self-Care 01 Condition: good Clinical Impression: Cough Forms: ED Department Discharge Additional Instructions: The following information is given to patients seen in the emergency department who are being discharged to home. This information is to outline your options for follow-up care. We provide all patients seen in our emergency department with a follow-up referral. The need for follow-up, as well as the timing and circumstances, are variable depending upon the specifics of your emergency department visit. If you don't have a primary care physician on staff, we will provide you with a referral. We always advise you to contact your personal physician following an emergency department visit to inform them of the circumstance of the visit and for follow-up with them and/or the need for any referrals to a consulting specialist. The emergency department will also refer you to a specialist when appropriate. This referral assures that you have the opportunity for followup care with a specialist. All of these measure are taken in an effort to provide you with optimal care, which includes your followup. Under all circumstances we always encourage you to contact your private physician who remains a resource for coordinating your care. When calling for followup care, please make the office aware that this follow-up is from your recent emergency room visit. If for any reason you are refused follow-up, please contact the [facility] emergency department at and asked to speak to the emergency department charge nurse. Keep your appointment as scheduled in 2 days with her primary care provider Dr. Luevano - My Orders Last 24 Hours: My Active Orders 06/01/16 16:54 Chest 1V Frontal [CR] Stat Sodium Chloride 0.9% [Saline Flush] 10 ml FLUSH ASDIRECTED PRN Sodium Chloride 0.9% [Saline Flush] 2.5 ml FLUSH ASDIRECTED PRN Saline Lock Insert [OM.PC] Stat - Assessment/Plan Last 24 Hours: My Active Orders 06/01/16 16:54 Chest 1V Frontal [CR] Stat Sodium Chloride 0.9% [Saline Flush] 10 ml FLUSH ASDIRECTED PRN Sodium Chloride 0.9% [Saline Flush] 2.5 ml FLUSH ASDIRECTED PRN Saline Lock Insert [OM.PC] Stat
[2016-06-01 17:48] LABS: CHLORIDE,CL 104 mmol/L (98-110); SODIUM,NA 139 mmol/L (136-146)
[2016-06-01 19:33] VITALS: BP 128/91
--- NOTE | 2016-06-02 19:32 | CR ---
EXAM DATE: 06/01/16 PATIENT'S AGE: 40 Patient: AILYN LEE Facility: [place], [place] Site . Site : 1975 Study: XRay Chest [id number] 6:18:59 PM Ordering Physician: Joe Lyman Final Report: HISTORY: Pain, shortness of breath. FINDINGS: AP portable chest radiograph is compared with 20 May 2016. Lungs are mildly hypoinflated. There is mild elevation of the left hemidiaphragm. Cardiac silhouette is normal. Pulmonary vasculature is free cephalization. No lobar consolidation or pleural effusion is seen. No nodule is seen in right lower lung field on the current exam. IMPRESSION: 1. Low lung volumes with mild elevation left hemidiaphragm. 2. No acute cardiopulmonary disease. Dictated by Serena Moyer MD @ 06/01/2016 6:38:29 PM Dictated by: Serena Moyer MD @ 06/01/2016 18:38:31 (Electronic Signature) Report Signed by Proxy and Original Signed Document filed in the Medical Record. MTDD
== END 2016-06-01 19:40 | disposition home or self-care (01) ==
LOC: MW.ED 16:37
DX: R05 Cough (principal); G80.9 Cerebral palsy, unspecified; Z90.49 Acquired absence of other specified parts of digestive tract; Z98.890 Other specified postprocedural states; Z79.899 Other long term (current) drug therapy; Z88.1 Allergy status to other antibiotic agents; Z88.0 Allergy status to penicillin; Z91.040 Latex allergy status
CPT/HCPCS: 71010; 71010-26; 80053; 84146; 85025; 99282; 99285

== ENCOUNTER → 2016-06-05 | Outpatient (CLI) | payer MEDICARE, MEDICAID | LOC: MW.CHFP 08:00 | PROVIDERS: ATTEND Emergency Medicine | DX: J18.1 Lobar pneumonia, unspecified organism (principal); M62.82 Rhabdomyolysis; G40.409 Other generalized epilepsy and epileptic syndromes, not intractable, without status epilepticus; R74.8 Abnormal levels of other serum enzymes | CPT/HCPCS: G0463 ==

== ENCOUNTER → 2016-06-09 | Outpatient (CLI) | payer MEDICARE, MEDICAID | LOC: MW.CHFP 08:00 | PROVIDERS: ATTEND Emergency Medicine | DX: B37.9 Candidiasis, unspecified (principal) | CPT/HCPCS: G0463 ==

== ENCOUNTER → 2016-06-14 | Outpatient (CLI) | payer MEDICARE, MEDICAID ==
[2016-06-14 11:04] LABS: CHLORIDE,CL 105 mmol/L (98-110); SODIUM,NA 139 mmol/L (136-146)
--- NOTE | 2016-06-14 11:37 | CR ---
EXAMINATION: Two-view chest (PA and Lateral views). HISTORY: Lobar pneumonia. FINDINGS: The trachea is midline. The cardiomediastinal silhouette is grossly stable. There is mild left basil ar atelectasis and/or infiltrate. Pleural effusion. Osseous structures appear unremarkable. IMPRESSION: Mild left basilar atelectasis and/or infiltrate.
== END ==
LOC: MW.CHFP 10:08
PROVIDERS: ATTEND Emergency Medicine
DX: R74.8 Abnormal levels of other serum enzymes (principal); J18.1 Lobar pneumonia, unspecified organism; R91.8 Other nonspecific abnormal finding of lung field; M43.6 Torticollis; R53.81 Other malaise
CPT/HCPCS: 36415; 71020; 71020-26; 80053; 85025; G0463

== ENCOUNTER → 2016-06-29 | Outpatient (CLI) | payer MEDICARE, MEDICAID | LOC: MW.CHFP 08:00 | PROVIDERS: ATTEND Emergency Medicine | DX: L89.891 Pressure ulcer of other site, stage 1 (principal) | CPT/HCPCS: G0463 ==

== ENCOUNTER → 2016-08-09 | Outpatient (CLI) | payer MEDICARE, MEDICAID ==
[2016-08-09 10:55] LABS: CHLORIDE,CL 105 mmol/L (98-110); SODIUM,NA 139 mmol/L (136-146)
== END ==
LOC: MW.CHFP 10:04
PROVIDERS: ATTEND Emergency Medicine
DX: Z01.818 Encounter for other preprocedural examination (principal); G80.9 Cerebral palsy, unspecified
CPT/HCPCS: 36415; 80048; 85025; G0463

== ENCOUNTER → 2016-08-15 | Outpatient (CLI) | payer MEDICARE, MEDICAID | LOC: MW.CHFP 08:40 | PROVIDERS: ATTEND Emergency Medicine | DX: Z01.818 Encounter for other preprocedural examination (principal) | CPT/HCPCS: 81001 ==

== ENCOUNTER 2016-09-01 14:22 | Emergency (ER) | payer MEDICARE, MEDICAID ==
--- NOTE | 2016-09-01 14:31 | EDM.PDOC ---
ED HPI GENERAL MEDICAL PROBLEM - General Stated Complaint: RASH ON HER ARMS - Related Data Allergies Allergy/AdvReac Type Severity Reaction Status Date / Time avocado Allergy Rash Verified 06/01/16 16:51 kiwi Allergy Rash Verified 06/01/16 16:51 latex Allergy Hives Verified 06/01/16 16:51 Latex, Natural Rubber Allergy Rash Verified 06/01/16 16:51 Sulfa (Sulfonamide Allergy Rash Verified 06/01/16 16:51 Antibiotics) sulfamethoxazole Allergy Hives Verified 06/01/16 16:51 [From Bactrim] trimethoprim [From Bactrim] Allergy Hives Verified 06/01/16 16:51 chestnuts Allergy Rash Uncoded 06/01/16 16:51 Home Meds: Home Meds EPINEPHrine [Epipen] 0.3 mg PO ASDIRECTED 01/11/15 [History] Cyanocobalamin (Vitamin B12) [Vitamin B12] 1,000 mcg PEGTUBE DAILY #0 01/19/15 [Rx] Multivitamin [Multi-Vitamin Daily] 1 tab PEGTUBE DAILY #0 01/19/15 [Rx] Sertraline [Zoloft] 100 mg PEGTUBE DAILY #0 01/19/15 [Rx] diphenhydrAMINE [Benadryl] 25 mg PEGTUBE Q6HR PRN #0 01/19/15 [Rx] Baclofen 10 mg PEGTUBE ASDIRECTED 05/15/15 [History] Bisacodyl [Dulcolax] 10 mg RECTAL DAILY 05/15/15 [History] medroxyPROGESTERone Acetate [Depo-Provera] 150 mg IM ASDIRECTED 05/15/15 [ History] Dextromethorphan HBr [Tussin Cough] 15 mg PO 05/20/16 [History] Past Medical History HEENT History: Reports: None Cardiovascular History: Reports: None Respiratory History: Reports: Other (See Below) Other Respiratory History: Aspiration Pneumonia Gastrointestinal History: Reports: Other (See Below) Other Gastrointestinal History: Gtube Genitourinary History: Reports: UTI, Recurrent 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: Other (See Below) Other OB/BYN History: Ovarian torsion Musculoskeletal History: Reports: None Neurological History: Reports: Cerebral Palsy Other Neuro History: Microcephalic Psychiatric History: Reports: Other (See Below) Other Psychiatric History: separation anxiety, intellectual disability Endocrine/Metabolic History: Reports: None Hematologic History: Reports: B12 Deficiency Immunologic History: Reports: None Oncologic (Cancer) History: Reports: None Dermatologic History: Reports: None - Infectious Disease History Infectious Disease History: Reports: None - Past Surgical History Female Surgical History: Reports: Other (See Below) Neurological Surgical History: Reports: Other (See Below) Musculoskeletal Surgical History: Reports: Other (See Below) Social & Family History - Family History Family Medical History: Noncontributory - Tobacco Use Smoking Status *Q: Never Smoker Second Hand Smoke Exposure: No - Caffeine Use Caffeine Use: Reports: None - Recreational Drug Use Recreational Drug Use: No - Living Situation & Occupation Living situation: Reports: Extended Care Facility Departure - Discharge Information Additional Instructions: The following information is given to patients seen in the emergency department who are being discharged to home. This information is to outline your options for follow-up care. We provide all patients seen in our emergency department with a follow-up referral. The need for follow-up, as well as the timing and circumstances, are variable depending upon the specifics of your emergency department visit. If you don't have a primary care physician on staff, we will provide you with a referral. We always advise you to contact your personal physician following an emergency department visit to inform them of the circumstance of the visit and for follow-up with them and/or the need for any referrals to a consulting specialist. The emergency department will also refer you to a specialist when appropriate. This referral assures that you have the opportunity for follow-up care with a specialist. All of these measure are taken in an effort to provide you with optimal care, which includes your follow-up. Under all circumstances we always encourage you to contact your private physician who remains a resource for coordinating your care. When calling for follow-up care, please make the office aware that this follow-up is from your recent emergency room visit. If for any reason you are refused follow-up, please contact the [facility] Emergency Department at and asked to speak to the emergency department charge nurse.
--- NOTE | 2016-09-01 14:59 | EDM.PDOC ---
ED HPI GENERAL MEDICAL PROBLEM - General Chief Complaint: Skin Complaint Stated Complaint: RASH ON HER ARMS Time Seen by Provider: 09/01/16 14:53 Source of Information: Reports: Patient History Limitations: Reports: No Limitations - History of Present Illness INITIAL COMMENTS - FREE TEXT/NARRATIVE: HISTORY AND PHYSICAL: []41-year-old female in a wheelchair history of cerebral palsy is present on the caregiver with rash to both arms face and chest History of Present Illness: []With the summer weather patient has been outside mosquitoes were biting her spray was utilized and now she has a raised erythematous rash She does answer yes when asked if her skin hurts Review of Systems: As per history of present illness and below otherwise all systems reviewed and negative. Past medical history: As per history of present illness and as reviewed below otherwise noncontributory. Surgical history: As per history of present illness and as reviewed below otherwise noncontributory. Social history: No reported history of drug or alcohol abuse. Family history: As per history of present illness and as reviewed below otherwise noncontributory. Physical exam: Alert female HEENT: Atraumatic, normocehpalic, pupils reactive, negative for conjunctival pallor or scleral icterus, mucous membranes moist, throat clear, neck supple, nontender, trachea midline. Lungs: Clear to auscultation, breath sounds equal bilaterally, chest non tender. Erythematous raised lacy pattern rash to chest under her shirt Heart: S1S2, regular, negative for clicks, rubs, or JVD. Abdomen: Soft, nondistended, nontender. Negative for masses or hepatossplenmegaly. Negative for costovertebral tenderness. Pelvis: Stable nontender. Genitourinary: Deferred. Rectal: Deferred Extremities: Atraumatic, negative for cords or calf pain. Erythematous rash almost petechiae non-raised in areas on both forearms Neurovascular unremarkable. Neuro: Awake, alert, oriented. Cranial nerves II through XII unremarkable. Cerebellum unremarkable. Motor and sensory unremarkable throughout. Exam nonfocal. Diagnostics:] Therapeutics: [] Impression: [#1 mosquito bites #2 allergic reaction to mosquito spray] Plan: [Stop the mosquito spray that was being utilized Benadryl lotion to her arms May try a different product to keep the mosquitoes away] Definitive disposition and diagnosis as appropriate pending reevaluation and review of above. Onset: Sudden Duration: Day(s): Location: Reports: Face, Chest, Upper Extremity, Right, Lower Extremity, Left Quality: Reports: Burning Severity: Moderate Improves with: Reports: None Worsens with: Reports: None Context: Reports: Other (Outside mosquito bites) Associated Symptoms: Reports: Rash - Related Data Allergies Allergy/AdvReac Type Severity Reaction Status Date / Time avocado Allergy Rash Verified 09/01/16 14:48 kiwi Allergy Rash Verified 09/01/16 14:48 latex Allergy Hives Verified 09/01/16 14:48 Latex, Natural Rubber Allergy Rash Verified 09/01/16 14:48 Sulfa (Sulfonamide Allergy Rash Verified 09/01/16 14:48 Antibiotics) sulfamethoxazole Allergy Hives Verified 09/01/16 14:48 [From Bactrim] trimethoprim [From Bactrim] Allergy Hives Verified 09/01/16 14:48 chestnuts Allergy Rash Uncoded 09/01/16 14:48 Home Meds: Home Meds EPINEPHrine [Epipen] 0.3 mg PO ASDIRECTED 01/11/15 [History] Cyanocobalamin (Vitamin B12) [Vitamin B12] 1,000 mcg PEGTUBE DAILY #0 01/19/15 [Rx] Multivitamin [Multi-Vitamin Daily] 1 tab PEGTUBE DAILY #0 01/19/15 [Rx] Sertraline [Zoloft] 100 mg PEGTUBE DAILY #0 01/19/15 [Rx] diphenhydrAMINE [Benadryl] 25 mg PEGTUBE Q6HR PRN #0 01/19/15 [Rx] Baclofen 10 mg PEGTUBE ASDIRECTED 05/15/15 [History] Bisacodyl [Dulcolax] 10 mg RECTAL DAILY 05/15/15 [History] medroxyPROGESTERone Acetate [Depo-Provera] 150 mg IM ASDIRECTED 05/15/15 [ History] Dextromethorphan HBr [Tussin Cough] 15 mg PO 05/20/16 [History] Past Medical History HEENT History: Reports: None Cardiovascular History: Reports: None Respiratory History: Reports: Other (See Below) Other Respiratory History: Aspiration Pneumonia Gastrointestinal History: Reports: Other (See Below) Other Gastrointestinal History: Gtube Genitourinary History: Reports: UTI, Recurrent 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 OF STATE History: Reports: Other (See Below) Other OB/BYN History: Ovarian torsion Musculoskeletal History: Reports: None Neurological History: Reports: Cerebral Palsy Other Neuro History: Microcephalic Psychiatric History: Reports: Other (See Below) Other Psychiatric History: separation anxiety, intellectual disability Endocrine/Metabolic History: Reports: None Hematologic History: Reports: B12 Deficiency Immunologic History: Reports: None Oncologic (Cancer) History: Reports: None Dermatologic History: Reports: None - Infectious Disease History Infectious Disease History: Reports: None - Past Surgical History Female Surgical History: Reports: Other (See Below) Neurological Surgical History: Reports: Other (See Below) Musculoskeletal Surgical History: Reports: Other (See Below) Social & Family History - Family History Family Medical History: Noncontributory - Tobacco Use Smoking Status *Q: Never Smoker Second Hand Smoke Exposure: No - Caffeine Use Caffeine Use: Reports: None - Recreational Drug Use Recreational Drug Use: No - Living Situation & Occupation Living situation: Reports: Extended Care Facility ED ROS GENERAL - Review of Systems Review Of Systems: ROS reveals no pertinent complaints other than HPI. ED EXAM, SKIN/RASH Exam: See Below (See dictation) Departure - Departure Time of Disposition: 14:57 Disposition: Home, Self-Care 01 Condition: good Clinical Impression: Rash and nonspecific skin eruption - Discharge Information Instructions: Rash Forms: ED Department Discharge Additional Instructions: The following information is given to patients seen in the emergency department who are being discharged to home. This information is to outline your options for follow-up care. We provide all patients seen in our emergency department with a follow-up referral. The need for follow-up, as well as the timing and circumstances, are variable depending upon the specifics of your emergency department visit. If you don't have a primary care physician on staff, we will provide you with a referral. We always advise you to contact your personal physician following an emergency department visit to inform them of the circumstance of the visit and for follow-up with them and/or the need for any referrals to a consulting specialist. The emergency department will also refer you to a specialist when appropriate. This referral assures that you have the opportunity for follow-up care with a specialist. All of these measure are taken in an effort to provide you with optimal care, which includes your follow-up. Under all circumstances we always encourage you to contact your private physician who remains a resource for coordinating your care. When calling for follow-up care, please make the office aware that this follow-up is from your recent emergency room visit. If for any reason you are refused follow-up, please contact the [facility] Emergency Department at and asked to speak to the emergency department charge nurse. Avoid using the same mosquito spray that she had tried some Benadryl lotion to help soothe her rash Follow-up with your primary care provider next week
[2016-09-01 15:01] VITALS: BP 121/81
== END 2016-09-01 15:08 | disposition home or self-care (01) ==
LOC: MW.ED 14:22
DX: S00.86XA Insect bite (nonvenomous) of other part of head, initial encounter (principal); S20.369A Insect bite (nonvenomous) of unspecified front wall of thorax, initial encounter; S50.862A Insect bite (nonvenomous) of left forearm, initial encounter; S50.861A Insect bite (nonvenomous) of right forearm, initial encounter; T50.995A Adverse effect of other drugs, medicaments and biological substances, initial encounter; F93.0 Separation anxiety disorder of childhood; Z79.899 Other long term (current) drug therapy; Z88.2 Allergy status to sulfonamides; Z88.1 Allergy status to other antibiotic agents; Z91.040 Latex allergy status; Z91.018 Allergy to other foods; W57.XXXA Bitten or stung by nonvenomous insect and other nonvenomous arthropods, initial encounter
CPT/HCPCS: 99282

== ENCOUNTER 2016-11-20 14:50 | Inpatient (IN) | payer MEDICARE, MEDICAID ==
[2016-11-20] MEDS ORDERED: Albuterol/Ipratropium 3.0-0.5 MG/3 ML Neb Soln NEB PRN (15:14)
[2016-11-20] MEDS ORDERED: Ondansetron 4 MG/2 ML SDV IVPUSH PRN (15:14)
[2016-11-20] MEDS ORDERED: Sodium Chloride 0.9% 1,000 ML IV SCH (15:15)
--- NOTE | 2016-11-20 15:23 | PCM.HP ---
H&P History of Present Illness - General Date of Service: 11/20/16 Admit Problem/Dx: Admission Diagnosis/Problem Admission Diagnosis/Problem Hypoxia Source of Information: Old Records, Other ([facility] caregiver) History Limitations: Reports: Physical Impairment (CP, non verbal) - History of Present Illness Initial Comments - Free Text/Narative: This 41 year old female with pmh of cerebral palsy, non-verbal, with G-tube in place for feedings and medication administration presented to Dr. Luevano's clinic today with worsening symptoms of SOB, cough and agitation. She was seen on Nov 17 for similar symptoms, treated for allergies. But today she is noted to be more dyspneic, choking on secretions, with increased cough and congestion. Caregiver reports she is not sleeping well and seems very agitated at times and in pain. Low grade fever at home. Caregiver reports last BM on Sunday, no vomiting noted. She typically has BM every 3-4 days per normal. Not urinating as much as normal. Has been getting feedings as scheduled. In the clinic, leukocytosis noted, 12,720, Na 146, BUN 36, Cr 0.8, Bs 132. CXR negative for caridopulmonary process, but did show mild elevation of the L hemidiaphragm with gaseous distended loops of colon. She was noted to be hypoxic on RA mid s. She will be admitted to due to hypoxia and dyspnea. PCP, Dr Luevaon. - Related Data Allergies/Adverse Reactions: Allergies Allergy/AdvReac Type Severity Reaction Status Date / Time avocado Allergy Rash Verified 09/01/16 14:48 haloperidol [From Haldol] Allergy Other Verified 11/20/16 15:35 kiwi Allergy Rash Verified 09/01/16 14:48 latex Allergy Hives Verified 09/01/16 14:48 Latex, Natural Rubber Allergy Rash Verified 09/01/16 14:48 Sulfa (Sulfonamide Allergy Rash Verified 09/01/16 14:48 Antibiotics) sulfamethoxazole Allergy Hives Verified 09/01/16 14:48 [From Bactrim] trimethoprim [From Bactrim] Allergy Hives Verified 09/01/16 14:48 chestnuts Allergy Rash Uncoded 09/01/16 14:48 Home Medications: Home Meds Multivitamin [Multi-Vitamin Daily] 1 tab PEGTUBE DAILY #0 10/27/15 [Rx] Sertraline [Zoloft] 100 mg PEGTUBE DAILY #0 01/19/15 [Rx] Baclofen 10 mg PEGTUBE BID 05/15/15 [History] medroxyPROGESTERone Acetate [Depo-Provera] 150 mg IM Q90D 05/15/15 [History] Baclofen 10 mg PO BID PRN 11/20/16 [History] Cyanocobalamin (Vitamin B-12) [Vitamin B-12] 1,000 mcg IM Q90D 11/20/16 [History ] Past Medical History HEENT History: Reports: None Cardiovascular History: Reports: None. 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 (See Below) Other OB/BYN History: Ovarian torsion Musculoskeletal History: Reports: None Neurological History: Reports: Cerebral Palsy, Seizure Other Neuro History: Microcephalic Psychiatric History: Reports: Other (See Below) Other Psychiatric History: separation anxiety, intellectual disability Endocrine/Metabolic History: Reports: None Hematologic History: Reports: B12 Deficiency Immunologic History: Reports: None Oncologic (Cancer) History: Reports: None Dermatologic History: Reports: None - Infectious Disease History Infectious Disease History: Reports: None - Past Surgical History Neurological Surgical History: Reports: Other (See Below) Musculoskeletal Surgical History: Reports: Other (See Below) Social & Family History - Family History Family Medical History: Noncontributory - Tobacco Use Smoking Status *Q: Never Smoker Second Hand Smoke Exposure: No - Caffeine Use Caffeine Use: Reports: None - Recreational Drug Use Recreational Drug Use: No - Living Situation & Occupation Living situation: Reports: Extended Care Facility H&P Review of Systems - Review of Systems: Review Of Systems: Unable To Obtain (patient non-verbal, history from caregiver) Exam - Exam Exam: See Below - Vital Signs Weight: 39.009 kg - Exam Quality Assessment: Supplemental Oxygen General: Alert, Cooperative, Mild Distress (choking and coughing on secretions, agitated at times due to coughing and choking. ) HEENT: Nares Patent, Posterior Pharynx Clear, Pupils Reactive. No: Mucosa Moist & [place] (dry mouth and lips with some cracking.) Neck: Supple, Trachea Midline Lungs: Rhonchi (throughout) Cardiovascular: Regular Rhythm, Normal S1, Normal S2, Tachycardia GI/Abdominal Exam: Normal Bowel Sounds, Soft, Non-Tender, No Organomegaly, Distended, Other (Gtube to mid abdomen, some formula drainage around g tube, feeding on going- told caregiver to stop for now.) Extremities: Normal Inspection, Normal Range of Motion, Non-Tender, No Pedal Edema, Normal Capillary Refill Neuro Extensive - Mental Status: Alert Psychiatric: Alert, Agitated (at times with choking and coughin, easily calms with reassurance.) *Q Meaningful Use (ADM) - VTE *Q VTE Criteria *Q: - VTE Risk Assess *Q Each Risk Factor Represents 1 Point: Age 41 - 59 years, Serious Lung Disease Including Pneumonia, Less than 1 Month, Medical Patient Currently on Bedrest Total Score 1 Point Risk Factors: 3 Each Risk Factor Represents 2 Points: None Total Score 2 Point Risk Factors: 0 Each Risk Factor Represents 3 Points: None Total Score 3 Point Risk Factors: 0 Each Risk Factor Represents 5 Points: None Total Score 5 Point Risk Factors: 0 Venous Thromboembolism Risk Factor Score *Q: 3 - Stroke *Q Stroke Criteria *Q: - AMI *Q AMI Criteria *Q: - Problem List (1) Sepsis SNOMED Code(s): 67405071 ICD Code: A41.9 - SEPSIS, UNSPECIFIED ORGANISM Status: Acute Current Visit: No (2) Aspiration pneumonia SNOMED Code(s): 378614579 ICD Code: J69.0 - PNEUMONITIS DUE TO INHALATION OF FOOD AND VOMIT Status: Chronic Priority: High Current Visit: No Problem Details: On antibiotics Qualifiers: Aspiration pneumonia type: due to gastric secretions Laterality: unspecified laterality Lung location: lower lobe of lung (3) Hypoxia SNOMED Code(s): 325248820, 668810015 ICD Code: R09.02 - HYPOXEMIA Status: Acute Current Visit: Yes (4) Sinus tachycardia SNOMED Code(s): 11352042 ICD Code: R00.0 - TACHYCARDIA, UNSPECIFIED Status: Acute Current Visit: No (5) G tube feedings SNOMED Code(s): 855684362, 289285123 ICD Code: Z93.1 - GASTROSTOMY STATUS Status: Chronic Current Visit: No (6) Cerebral palsy SNOMED Code(s): 716958861 ICD Code: G80.9 - CEREBRAL PALSY, UNSPECIFIED Status: Chronic Priority: Medium Current Visit: No Problem List Initiated/Reviewed/Updated: Yes Orders Last 24hrs: Active Orders 24 hr Category Date Time Status Patient Status [ADT] Routine ADT 11/20/16 15:14 Active Communication Order [RC] PER UNIT ROUTINE Care 11/20/16 15:14 Ordered Communication Order [RC] PRN Care 11/20/16 15:14 Ordered Intake and Output [RC] QSHIFT Care 11/20/16 15:16 Ordered Oxygen Therapy [RC] PRN Care 11/20/16 15:14 Ordered RT Aerosol Therapy [RC] ASDIRECTED Care 11/20/16 15:18 Ordered Up With Assistance [RC] ASDIRECTED Care 11/20/16 15:14 Ordered VTE/DVT Education [RC] PER UNIT ROUTINE Care 11/20/16 15:14 Ordered Vital Signs [RC] Q4H Care 11/20/16 15:14 Ordered Nothing per Oral Now Diet [DIET] Diet 11/20/16 Dinner Active Abdomen Pelvis wo Cont [CT] Stat Exams 11/20/16 15:14 Ordered BASIC METABOLIC PANEL,BMP [CHEM] AM Lab 11/21/16 05:11 Ordered BASIC METABOLIC PANEL,BMP [CHEM] AM Lab 11/22/16 05:11 Ordered BASIC METABOLIC PANEL,BMP [CHEM] AM Lab 11/23/16 05:11 Ordered CBC WITH AUTO DIFF [HEME] AM Lab 11/21/16 05:11 Ordered CBC WITH AUTO DIFF [HEME] AM Lab 11/22/16 05:11 Ordered CBC WITH AUTO DIFF [HEME] AM Lab 11/23/16 05:11 Ordered CULTURE BLOOD [BC] Stat Lab 11/20/16 15:18 Ordered CULTURE BLOOD [BC] Stat Lab 11/20/16 15:18 Ordered CULTURE SPUTUM + SMEAR [RM] Stat Lab 11/20/16 15:14 Uncollected CULTURE URINE [RM] Stat Lab 11/20/16 15:14 Uncollected UA W/MICROSCOPIC [URIN] Stat Lab 11/20/16 15:14 Uncollected Albuterol/Ipratropium [DuoNeb 3.0-0.5 MG/3 ML] Med 11/20/16 15:14 Ordered 3 ml NEB Q4HRRT PRN Enoxaparin [Lovenox] Med 11/21/16 09:00 Ordered 40 mg SUBCUT DAILY Levofloxacin/Dextrose 5%-Water [Levaquin in D5W 750 MG/ Med 11/20/16 15:15 Ordered 150 ML] 750 mg Premix Bag 1 bag IV Q24H Ondansetron [Zofran] Med 11/20/16 15:14 Ordered 4 mg IVPUSH Q4H PRN Sodium Chloride 0.9% [Normal Saline] 1,000 ml Med 11/20/16 15:15 Ordered IV ASDIRECTED Blood Culture x2 Reflex Set [OM.PC] Stat Oth 11/20/16 15:14 Ordered RT Suction Oropharyngeal [RESPCARE] Routine Oth 11/20/16 15:14 Ordered Resuscitation Status Routine Resus Stat 11/20/16 15:14 Ordered Assessment/Plan Comment:: This 41 year old female admitted with hypoxia, suspected aspiration pneumonia and distended loops of colon. 1. Hypoxia: suspected aspiration pneumonia with sepsis, history of recurrent aspiration PNA. Frequent Cough with secretions. Will start Levaquin 750 mg IV daily, Duonebs PRN, suctioning as needed to clear secretions, and Oxygen. Will obtain BC and sputum culture. Lactate 3.1, boluses given, will trend. IVF, 1/2 NS 100 ml/hr for now. Monitor electrolytes. UA negative. 2. Distended loops of colon: Stat CT abd/pelvis reveals constipation, redudant sigmoid colon, and G tube in place, nephrocalcinosis. Had BM later this evening , dulcolax given as well. No BM in 4 days. No N/V at home. R/O obstruction. Will start feedings as per home schedule. 3. Tachycardia: Obtain EKG, place on telemetry.ST, continue with IVF resuscitation. Will give another 1 L bolus. Lopressor 5 mg IV PRN 4. Cerebral palsy: stable. VTE prophylaxis: Lovenox. Dispo: 2-4 days pending improvement.
[2016-11-20] MEDS: Levofloxacin/Dextrose 5%-Water 750 MG in Premix Bag 1 BAG IV SCH (16:17)
[2016-11-20] MEDS: Sodium Chloride 0.45% 1,000 ML IV SCH (16:17)
[2016-11-20] MEDS ORDERED: Sodium Chloride 0.9% 500 ML IV ONE (16:34)
[2016-11-20] MEDS ORDERED: Bisacodyl 10 MG Supp RECTAL ONE (16:40)
[2016-11-20] MEDS: Baclofen 10 MG Tab PO PRN ×2 (18:57→19:05)
[2016-11-20] MEDS ORDERED: Sodium Chloride 0.9% 1,000 ML IV ONE ×2 (19:15→22:57)
[2016-11-20] MEDS: Metoprolol Tartrate 5 MG/5 ML SDV IVPUSH PRN (19:47)
[2016-11-20] MEDS: Baclofen 10 MG Tab GTUBE SCH (21:37)
[2016-11-21] MEDS: Baclofen 10 MG Tab PO PRN (01:37)
[2016-11-21] MEDS: Metoprolol Tartrate 5 MG/5 ML SDV IVPUSH PRN (02:15)
[2016-11-21 03:44] LABS: CHLORIDE,CL 117 mmol/L (98-110); SODIUM,NA 147 mmol/L (136-146)
[2016-11-21] MEDS: Sodium Chloride 0.45% 1,000 ML IV SCH ×2 (05:48→19:41)
[2016-11-21] MEDS ORDERED: Lactated Ringers 1,000 ML IV ONE (06:04)
[2016-11-21] MEDS: Morphine 2 MG/ML Syringe IVPUSH PRN ×4 (06:11→19:38)
[2016-11-21] MEDS: Piperacillin/Tazobactam 3.375 GM in Sodium Chloride 0.9% 50 ML IV SCH ×4 (06:22→23:05)
[2016-11-21 06:29] LABS: CHLORIDE,CL 116 mmol/L (98-110); SODIUM,NA 148 mmol/L (136-146)
[2016-11-21] MEDS ORDERED: Magnesium Sulfate/Water 2 GM in Premix Bag 1 BAG IV ONE ×2 (07:00→10:00)
--- NOTE | 2016-11-21 07:19 | PCM.PN ---
- Review of Systems Systems Review Comment:: patient was restless overnight with tachypnea, tachycardia and thick oral secreations. - Patient Data Vitals - Most Recent: Last Vital Signs Temp 36.6 C 11/21/16 05:33 Pulse 107 H 11/21/16 04:00 Resp 26 H 11/21/16 05:33 BP 125/81 11/21/16 05:33 Pulse Ox 94 L 11/21/16 06:45 Weight - Most Recent: 39.009 kg I&O - Last 24 Hours: Intake & Output 11/20/16 11/21/16 11/21/16 22:59 06:59 14:59 Intake Total 1000 80 Balance 1000 80 Lab Results Last 24 Hours: Laboratory Results - last 24 hr 11/20/16 11/20/16 11/20/16 Range/Units 15:39 17:10 22:05 WBC (4.0-11.0) K/uL RBC (4.30-5.90) M/uL Hgb (12.0-16.0) g/dL Hct (36.0-46.0) % MCV (80.0-98.0) fL MCH (27.0-32.0) pg MCHC (31.0-37.0) g/dL RDW Std Deviation (28.0-62.0) fl RDW Coeff of Julio (11.0-15.0) % Plt Count (150-400) K/uL MPV (7.40-12.00) fL Neut % (Auto) (48.0-80.0) % Lymph % (Auto) (16.0-40.0) % Carlton % (Auto) (0.0-15.0) % Eos % (Auto) (0.0-7.0) % Baso % (Auto) (0.0-1.5) % Neut # (Auto) (1.4-5.7) K/uL Lymph # (Auto) (0.6-2.4) K/uL Carlton # (Auto) (0.0-0.8) K/uL Eos # (Auto) (0.0-0.7) K/uL Baso # (Auto) (0.0-0.1) K/uL Nucleated RBC % /100WBC Nucleated RBCs # K/uL ABG pH (7.35-7.45) ABG pCO2 (35-45) mmHG ABG pO2 (75-100) mmHG ABG HCO3 (22-26) mEq/L ABG Total CO2 ABG Base Excess (-2.0-2.0) Lactate 3.1 H 3.7 H (0.20-2.00) mmol/L Sodium (136-146) mmol/L Potassium (3.5-5.1) mmol/L Chloride (98-110) mmol/L Carbon Dioxide (21-31) mmol/L BUN (6.0-23.0) mg/dL Creatinine (0.6-1.5) mg/dL Est Cr Clr Drug Dosing mL/min Estimated GFR (MDRD) ml/min Glucose (60-110) mg/dL Calcium (8.8-10.8) mg/dL Magnesium (1.5-2.3) mEq/L Total Bilirubin (0.1-1.5) mg/dL AST (5-40) IU/L ALT (8-54) IU/L Alkaline Phosphatase (40-150) Troponin I (0.0-0.29) NG/ML Total Protein (6.0-8.0) g/dL Albumin (3.5-5.0) g/dL Globulin (2.0-3.5) g/dL Albumin/Globulin Ratio (1.3-2.8) Amylase (10-90) U/L Lipase (7-80) U/L Urine Color YELLOW Urine Appearance SLT CLOUDY Urine pH 6.0 (5.0-8.0) Ur Specific Mcdonough 1.025 (1.001-1.035) Urine Protein >=300 (NEGATIVE) mg/dL Urine Glucose (UA) NEGATIVE (NEGATIVE) mg/dL Urine Ketones NEGATIVE (NEGATIVE) mg/dL Urine Occult Blood LARGE H (NEGATIVE) Urine Nitrite NEGATIVE (NEGATIVE) Urine Bilirubin NEGATIVE (NEGATIVE) Urine Urobilinogen 0.2 (<2.0) EU/dL Ur Leukocyte Esterase TRACE (NEGATIVE) Urine RBC 3-5 (0-2/HPF) Urine WBC 2-5 (0-5/HPF) Ur Epithelial Cells MODERATE (NONE-FEW) Amorphous Sediment FEW (NEGATIVE) Urine Bacteria FEW (NEGATIVE) 11/21/16 11/21/16 11/21/16 Range/Units 03:15 03:15 03:15 WBC 10.65 (4.0-11.0) K/uL RBC 3.73 L (4.30-5.90) M/uL Hgb 12.7 (12.0-16.0) g/dL Hct 37.8 (36.0-46.0) % MCV 101.3 H (80.0-98.0) fL MCH 34.0 H (27.0-32.0) pg MCHC 33.6 (31.0-37.0) g/dL RDW Std Deviation 47.9 (28.0-62.0) fl RDW Coeff of Julio 13 (11.0-15.0) % Plt Count 185 (150-400) K/uL MPV 11.20 (7.40-12.00) fL Neut % (Auto) 76.4 (48.0-80.0) % Lymph % (Auto) 12.1 L (16.0-40.0) % Carlton % (Auto) 11.4 (0.0-15.0) % Eos % (Auto) 0.0 (0.0-7.0) % Baso % (Auto) 0.1 (0.0-1.5) % Neut # (Auto) 8.1 H (1.4-5.7) K/uL Lymph # (Auto) 1.3 (0.6-2.4) K/uL Carlton # (Auto) 1.2 H (0.0-0.8) K/uL Eos # (Auto) 0.0 (0.0-0.7) K/uL Baso # (Auto) 0.0 (0.0-0.1) K/uL Nucleated RBC % 0.0 /100WBC Nucleated RBCs # 0 K/uL ABG pH (7.35-7.45) ABG pCO2 (35-45) mmHG ABG pO2 (75-100) mmHG ABG HCO3 (22-26) mEq/L ABG Total CO2 ABG Base Excess (-2.0-2.0) Lactate 3.6 H (0.20-2.00) mmol/L Sodium 147 H (136-146) mmol/L Potassium 3.9 (3.5-5.1) mmol/L Chloride 117 H (98-110) mmol/L Carbon Dioxide 15 L (21-31) mmol/L BUN 23 (6.0-23.0) mg/dL Creatinine 0.7 (0.6-1.5) mg/dL Est Cr Clr Drug Dosing 64.47 mL/min Estimated GFR (MDRD) > 60.0 ml/min Glucose 83 (60-110) mg/dL Calcium 8.4 L (8.8-10.8) mg/dL Magnesium (1.5-2.3) mEq/L Total Bilirubin (0.1-1.5) mg/dL AST (5-40) IU/L ALT (8-54) IU/L Alkaline Phosphatase (40-150) Troponin I (0.0-0.29) NG/ML Total Protein (6.0-8.0) g/dL Albumin (3.5-5.0) g/dL Globulin (2.0-3.5) g/dL Albumin/Globulin Ratio (1.3-2.8) Amylase (10-90) U/L Lipase (7-80) U/L Urine Color Urine Appearance Urine pH (5.0-8.0) Ur Specific Mcdonough (1.001-1.035) Urine Protein (NEGATIVE) mg/dL Urine Glucose (UA) (NEGATIVE) mg/dL Urine Ketones (NEGATIVE) mg/dL Urine Occult Blood (NEGATIVE) Urine Nitrite (NEGATIVE) Urine Bilirubin (NEGATIVE) Urine Urobilinogen (<2.0) EU/dL Ur Leukocyte Esterase (NEGATIVE) Urine RBC (0-2/HPF) Urine WBC (0-5/HPF) Ur Epithelial Cells (NONE-FEW) Amorphous Sediment (NEGATIVE) Urine Bacteria (NEGATIVE) 11/21/16 11/21/16 11/21/16 Range/Units 04:20 04:20 06:35 WBC (4.0-11.0) K/uL RBC (4.30-5.90) M/uL Hgb (12.0-16.0) g/dL Hct (36.0-46.0) % MCV (80.0-98.0) fL MCH (27.0-32.0) pg MCHC (31.0-37.0) g/dL RDW Std Deviation (28.0-62.0) fl RDW Coeff of Julio (11.0-15.0) % Plt Count (150-400) K/uL MPV (7.40-12.00) fL Neut % (Auto) (48.0-80.0) % Lymph % (Auto) (16.0-40.0) % Carlton % (Auto) (0.0-15.0) % Eos % (Auto) (0.0-7.0) % Baso % (Auto) (0.0-1.5) % Neut # (Auto) (1.4-5.7) K/uL Lymph # (Auto) (0.6-2.4) K/uL Carlton # (Auto) (0.0-0.8) K/uL Eos # (Auto) (0.0-0.7) K/uL Baso # (Auto) (0.0-0.1) K/uL Nucleated RBC % /100WBC Nucleated RBCs # K/uL ABG pH 7.356 (7.35-7.45) ABG pCO2 31 L (35-45) mmHG ABG pO2 82 (75-100) mmHG ABG HCO3 17 L (22-26) mEq/L ABG Total CO2 15.8 ABG Base Excess -7.5 L (-2.0-2.0) Lactate (0.20-2.00) mmol/L Sodium 148 H (136-146) mmol/L Potassium 4.5 (3.5-5.1) mmol/L Chloride 116 H (98-110) mmol/L Carbon Dioxide 18 L (21-31) mmol/L BUN 24 H (6.0-23.0) mg/dL Creatinine 0.7 (0.6-1.5) mg/dL Est Cr Clr Drug Dosing 64.47 mL/min Estimated GFR (MDRD) > 60.0 ml/min Glucose 64 (60-110) mg/dL Calcium 8.9 (8.8-10.8) mg/dL Magnesium 1.3 L (1.5-2.3) mEq/L Total Bilirubin 1.2 (0.1-1.5) mg/dL AST 29 (5-40) IU/L ALT 21 (8-54) IU/L Alkaline Phosphatase 121 (40-150) Troponin I < 0.10 (0.0-0.29) NG/ML Total Protein 6.7 (6.0-8.0) g/dL Albumin 3.5 (3.5-5.0) g/dL Globulin 3.2 (2.0-3.5) g/dL Albumin/Globulin Ratio 1.1 L (1.3-2.8) Amylase 41 (10-90) U/L Lipase < 9 (7-80) U/L Urine Color Urine Appearance Urine pH (5.0-8.0) Ur Specific Mcdonough (1.001-1.035) Urine Protein (NEGATIVE) mg/dL Urine Glucose (UA) (NEGATIVE) mg/dL Urine Ketones (NEGATIVE) mg/dL Urine Occult Blood (NEGATIVE) Urine Nitrite (NEGATIVE) Urine Bilirubin (NEGATIVE) Urine Urobilinogen (<2.0) EU/dL Ur Leukocyte Esterase (NEGATIVE) Urine RBC (0-2/HPF) Urine WBC (0-5/HPF) Ur Epithelial Cells (NONE-FEW) Amorphous Sediment (NEGATIVE) Urine Bacteria (NEGATIVE) [place]loan Results Last 24 Hours: Microbiology 11/20/16 17:26 Gram Stain - Preliminary Sputum - Expectorated 11/20/16 15:39 Anaerobic Blood Culture - Final Blood - Venous - Lab Draw Med Orders - Current: Current Medications Albuterol/Ipratropium (Duoneb 3.0-0.5 Mg/3 Ml) 3 ml NEB Q4HRRT PRN PRN Reason: Shortness Of Breath/wheezing Baclofen (Lioresal) 10 mg GTUBE BID [facility] Last Admin: 11/20/16 21:37 Dose: Not Given Baclofen (Lioresal) 10 mg PO BID PRN PRN Reason: muscle tightness Last Admin: 11/21/16 01:37 Dose: 10 mg Enoxaparin Sodium (Lovenox) 40 mg SUBCUT DAILY [facility] Famotidine (Pepcid) 20 mg IVPUSH DAILY [facility] Levofloxacin/Dextrose 750 mg/ (Premix) 150 mls @ 100 mls/hr IV Q24H [facility] Last Admin: 11/20/16 16:17 Dose: 100 mls/hr Sodium Chloride (Sodium Chloride 0.45%) 1,000 mls @ 100 mls/hr IV ASDIRECTED [facility] Last Admin: 11/21/16 05:48 Dose: 100 mls/hr Piperacillin Sod/Tazobactam (Sod 3.375 gm/ Sodium Chloride) 50 mls @ 100 mls/ hr IV Q6H [facility] Last Admin: 11/21/16 06:22 Dose: 100 mls/hr Magnesium Sulfate 2 gm/ Premix 50 mls @ 50 mls/hr IV ONETIME ONE Stop: 11/21/16 07:59 Vancomycin HCl 1 gm/ Sodium (Chloride) 250 mls @ 166.667 mls/hr IV Q12H [facility] Metoprolol Tartrate (Lopressor) 5 mg IVPUSH Q6H PRN PRN Reason: Tachycardia Last Admin: 11/21/16 02:15 Dose: 5 mg Morphine Sulfate (Morphine) 2 mg IVPUSH Q2H PRN PRN Reason: Pain Last Admin: 11/21/16 06:11 Dose: 2 mg Multivitamins/Minerals/Vitamin C (Tab-A-Joseph) 1 tab .XX DAILY [facility] Ondansetron HCl (Zofran) 4 mg IVPUSH Q4H PRN PRN Reason: Nausea Sertraline HCl (Zoloft) 100 mg GTUBE DAILY [facility] Vancomycin HCl (Pharmacy To Dose - Vancomycin) 1 dose .XX ASDIRECTED [facility] Discontinued Medications Bisacodyl (Dulcolax) 10 mg RECTAL ONETIME ONE Stop: 11/20/16 16:41 Last Admin: 11/20/16 17:56 Dose: 10 mg Sodium Chloride (Normal Saline) 1,000 mls @ 100 mls/hr IV ASDIRECTED [facility] Sodium Chloride (Normal Saline) 500 mls @ 999 mls/hr IV .BOLUS ONE Stop: 11/20/16 17:04 Last Admin: 11/20/16 17:38 Dose: 999 mls/hr Sodium Chloride (Normal Saline) 1,000 mls @ 999 mls/hr IV STAT ONE Stop: 11/20/16 20:15 Last Infusion: 11/20/16 20:57 Dose: Infused Sodium Chloride (Normal Saline) 1,000 mls @ 999 mls/hr IV .BOLUS ONE Stop: 11/20/16 23:57 Last Admin: 11/20/16 23:02 Dose: 999 mls/hr Lactated Ringer's (Ringers, Lactated) 1,000 mls @ 1,000 mls/hr IV .BOLUS ONE Stop: 11/21/16 07:03 Last Admin: 11/21/16 06:26 Dose: 1,000 mls/hr - Exam Lungs: Rhonchi Cardiovascular: Tachycardia GI/Abdominal Exam: Soft, No Distention Extremities: Normal Inspection, No Pedal Edema Skin: Warm, Dry, Intact - Problem List Review Problem List Initiated/Reviewed/Updated: Yes - My Orders Last 24 Hours: My Active Orders 11/21/16 03:54 Abdomen 1V Flat [CR] Routine CXR [Chest 1V Frontal] [CR] Routine 11/21/16 04:08 EKG 12 Lead [EKG Documentation Completion] [RC] ROUTINE 11/21/16 04:59 Transfer Patient (Change bed) [ADT] Routine 11/21/16 05:53 Morphine 2 mg IVPUSH Q2H PRN 11/21/16 06:00 Piperacillin/Tazobactam [Piperacil-Tazobact] 3.375 gm Sodium Chloride 0.9% [ Normal Saline] 50 ml IV Q6H 11/21/16 06:06 Echo 2D wo Cont [US] Routine 11/21/16 06:15 Vancomycin Pharmacy to Dose [Pharmacy to Dose - Vancomycin] 1 dose .XX ASDIRECTED 11/21/16 07:00 Consult to Physician [CONS] Routine Magnesium Sulfate/Water [Magnesium Sulfate 2 GM in Water 50 ML] 2 gm Premix Bag 1 bag IV ONETIME 11/21/16 07:01 Notify Provider Consults [RC] ASDIRECTED 11/21/16 07:30 Vancomycin [Vancocin] 1 gm Sodium Chloride 0.9% [Normal Saline] 250 ml IV Q12H 11/21/16 09:00 Famotidine [Pepcid] 20 mg IVPUSH DAILY 11/22/16 18:30 VANCOMYCIN TROUGH [CHEM] Routine - Plan Plan:: This 41 year old female admitted with hypoxia, suspected aspiration pneumonia and distended loops of colon. 1. Sepsis: lactic acid 3.6 will continue IV fluid resucitation with boluse lactated ringers, will expand antibiotic coverage to zosyn, vancomycin and continue levaquin. cultures pending. Echocardiogram ordered. 2. Distended loops of colon: Stat CT abd/pelvis reveals constipation, redudant sigmoid colon, and G tube in place, nephrocalcinosis. has been having BM after suppository yesterday. General surgery consulted. VTE prophylaxis: Lovenox.
[2016-11-21] MEDS: Baclofen 10 MG Tab GTUBE SCH ×2 (09:44→21:02)
[2016-11-21] MEDS: Multivitamin Tab SCH (09:44)
[2016-11-21] MEDS: Enoxaparin 40 MG/0.4 ML Syringe SUBCUT SCH (09:44)
[2016-11-21] MEDS: Sertraline 100 MG Tab GTUBE SCH (09:44)
[2016-11-21] MEDS: Famotidine 20 MG/2 ML SDV IVPUSH SCH (09:44)
--- NOTE | 2016-11-21 10:10 | CT ---
EXAM DATE: 11/20/16 PATIENT'S AGE: 41 Patient: AILYN LEE Facility: [place], [place] Site . Site : 1975 Study: CT Abdomen/Pelvis [id number]/28/2017 4:17:46 PM Ordering Physician: Jose Ramon John Final Report: INDICATION: Abdominal pain; constipation; distended abdomen. Comparison: CT abdomen and pelvis May 16, 2015. Technique: CT abdomen and pelvis without intravenous or oral contrast; coronal and sagittal reformats. Findings: No abnormal intra pulmonary nodular densities through the lower lungs. Normal size cardiac silhouette without any evidence of pericardial effusion. No focal hepatic or splenic pathology. No pancreatic pathology. Gallbladder is unremarkable. No adrenal pathology. Nephrocalcinosis ; progressive when compared to May 16, 2015. No obstructive uropathy or perinephric pathology. Gastrostomy tube in place. Redundant sigmoid colon. Large amount of retained stool in the rectosigmoid indicating constipation. No retroperitoneal lymphadenopathy. No evidence of pneumoperitoneum. No evidence of intestinal obstruction. Impression: Constipation. 1. Redundant sigmoid colon. 2. Nephrocalcinosis. 3. Gastrostomy tube in place. Please note that all CT scans at this facility use dose modulation, iterative reconstruction, and/or weight-based dosing when appropriate to reduce radiation dose to as low as reasonably achievable. Dictated by Michelle Alegre MD @ Nov 20 2016 4:24PM (Electronic Signature) Report Signed by Proxy. [facility]
--- NOTE | 2016-11-21 11:11 | CR ---
EXAM DATE: 11/20/16 PATIENT'S AGE: 41 Patient: AILYN LEE Facility: [place], [place] Site . Site : 1975 Study: XRay Chest [id number]/2017 4:22:05 AM Ordering Physician: Jose Ramon John Final Report: INDICATION: TACHPNENIC TECHNIQUE: Chest 1 view. COMPARISON: 11/19/16 FINDINGS: Cardiovascular and mediastinum: Heart size and vasculature are normal in caliber and appearance. Mediastinum is within normal limits. Lungs and pleural space: Lungs are clear. No sign of infiltrate or mass. No sign of pleural effusion. No pneumothorax. Bones and soft tissues: No significant findings. IMPRESSION: Unremarkable chest. Dictated by: Aneudy Rodriguez MD @ 11/21/2016 04:24:35 (Electronic Signature) Report Signed by Proxy. [facility]
--- NOTE | 2016-11-21 11:12 | CR ---
EXAM DATE: 11/20/16 PATIENT'S AGE: 41 Patient: AILYN LEE Facility: [place], [place] Site . Site : 1975 Study: XRay Abdomen [id number]/29/2017 4:22:56 AM Ordering Physician: Jose Ramon John Final Report: INDICATION: Tachypneic. TECHNIQUE: Abdomen 1 view. COMPARISON: None FINDINGS: Bowel: Bowel pattern is normal. Gastrostomy tube identified. Soft tissues: No sign of free air. No sign of soft tissue mass. No suspicious calcifications. Bones: Unremarkable for age. IMPRESSION: Unremarkable abdomen. Dictated by Aneudy Rodriguez MD @ 11/21/2016 4:25:41 AM Dictated by: Aneudy Rodriguez MD @ 11/21/2016 04:25:48 (Electronic Signature) Report Signed by Proxy. [facility]
--- NOTE | 2016-11-21 11:52 | PCM.SN ---
- Free Text/Narrative Note: pt seen, chart review; possible urosepsis, abx as you are doing; no acute abdomin; will sign off, recall if question; [id number]
[2016-11-21] MEDS: Levofloxacin/Dextrose 5%-Water 750 MG in Premix Bag 1 BAG IV SCH (14:14)
--- NOTE | 2016-11-21 20:32 | CONS ---
DATE OF CONSULTATION: 11/21/2016 DATE OF : 1975 PRIMARY CARE PHYSICIAN: Yosvany Luevano M.D. Consult to Dr. Albright. CONCERNING QUESTION: The patient is in sepsis. HISTORY OF PRESENT ILLNESS: The patient is a 41-year-old lady with past medical history of cerebral palsy, nonverbal, with G-tube placed two years ago for feeding, because of failed to thrive and admitted 24 hours ago with worsening symptoms, short of breath, cough and agitation. She was admitted to medical service, placed in ICU and continued to be running up temperature and tachypneic and workup included blood work, white count of 10.65. BUN and creatinine are 24 and 0.7, and also include a CAT scan of the abdomen and pelvis. CAT scan workup revealed redundant sigmoid, kidney stone, and gastrostomy tube in place, large amount of retained stone. No evidence of bowel obstruction. No evidence of pneumoperitoneum or lymphadenopathy. Overnight was not much improved and Surgery was consulted to see if there is any surgical issue to cause for the sepsis. Most of the information was from chart as the patient was nonverbal. PAST MEDICAL HISTORY: Cerebral palsy. SOCIAL HISTORY: The patient is not a smoker. PAST SURGICAL HISTORY: G-tube placed. FAMILY HISTORY: Noncontributory. REVIEW OF SYSTEMS: Same as history of present illness. PHYSICAL EXAMINATION: GENERAL: A much smaller than usual white lady, agitated while lying down and with mouth widely open but whenever she sat up she smiled and much more calm. HEENT: Normocephalic, atraumatic. Sclerae anicteric. LUNGS: Clear to auscultation. HEART: Regular rate and rhythm. ABDOMEN: Soft, nondistended, well-healed midline surgical scar. No hernia. Nontender. Active bowel sounds. LABORATORY DATA: Upon consultation, white count 10 and H and H 13 and 38, platelet is 185. INR 1.13. BUN 24 and creatinine 0.7. Urine has large amount of blood and was told maybe she is menstruating or traumatic Whyte insertion. Tox screen is negative. IMPRESSION: Tachypnea, low-grade fever likely to be septic with large amount of blood, could be urosepsis and there is some white cell and some rbc's in the UA. We will initiate antibiotic as we are doing. The patient had well formed stool yesterday and no white count. Abdomen exam is soft. There is no acute abdomen, no surgical issue. We will sign off now. Recall if question. As always, thank you for the kind referral. RASHEED GOETZ /[id number] MTDD
[2016-11-21] MEDS ORDERED: LORazepam 2 MG/ML MDV IVPUSH ONE (22:16)
[2016-11-21] MEDS ORDERED: Bisacodyl 10 MG Supp RECTAL ONE (22:30)
[2016-11-21] MEDS: Acetaminophen 325 MG/10.15 ML ML PO PRN (22:43)
[2016-11-22] MEDS ORDERED: Sodium Chloride 0.9% 250 ML IV SCH (01:30)
[2016-11-22] MEDS ORDERED: Bisacodyl 10 MG Supp ONE (01:42)
[2016-11-22] MEDS: Sodium Chloride 0.45% 1,000 ML IV SCH (02:07)
[2016-11-22] MEDS: Piperacillin/Tazobactam 3.375 GM in Sodium Chloride 0.9% 50 ML IV SCH ×5 (05:14→22:14)
[2016-11-22 05:30] LABS: CHLORIDE,CL 116 mmol/L (98-110); SODIUM,NA 144 mmol/L (136-146)
[2016-11-22] MEDS ORDERED: Dextrose 5% in Water 1,000 ML IV SCH (07:45)
[2016-11-22] MEDS: Multivitamin Tab SCH (08:54)
[2016-11-22] MEDS: Sertraline 100 MG Tab GTUBE SCH (08:55)
[2016-11-22] MEDS: Enoxaparin 40 MG/0.4 ML Syringe SUBCUT SCH (08:55)
[2016-11-22] MEDS: Baclofen 10 MG Tab GTUBE SCH ×2 (08:55→20:53)
[2016-11-22] MEDS: Famotidine 20 MG/2 ML SDV IVPUSH SCH (08:56)
--- NOTE | 2016-11-22 10:22 | CR ---
EXAMINATION: Portable chest radiograph. HISTORY: Hypoxia. FINDINGS: The trachea is midline. The cardiomediastinal silhouette is within normal limits. No pulmonary infilt rates, effusions or pneumothorax. Osseous structures appear unremarkable. IMPRESSION: No acute cardiopulmonary process.
--- NOTE | 2016-11-22 10:23 | CR ---
EXAMINATION: Abdomen HISTORY: Distended: COMPARISON: 11/01/2016 TECHNIQUE: Single view FINDINGS: Again noted is a moderately distended right hemicolon. Gas and stool project over the rectu m without evidence of small bowel obstruction. There is a G-tube projecting over the upper left abdom en. No abnormal calcifications. The visualized osseous structures appear osteopenic however intact. N o organomegaly. IMPRESSION: 1. Mild persistence of colonic gaseous distention without evidence of a small bowel obstruction.
[2016-11-22] MEDS ORDERED: Bisacodyl 10 MG Supp RECTAL PRN (11:02)
--- NOTE | 2016-11-22 11:07 | PCM.PN ---
- Review of Systems Systems Review Comment:: nonverbal - Patient Data Vitals - Most Recent: Last Vital Signs Temp 36.8 C 11/22/16 08:00 Pulse 99 11/22/16 07:00 Resp 29 H 11/22/16 10:00 BP 107/73 11/22/16 10:00 Pulse Ox 99 11/22/16 10:00 Weight - Most Recent: 41.1 kg I&O - Last 24 Hours: Intake & Output 11/21/16 11/22/16 11/22/16 22:59 06:59 14:59 Intake Total 1150 1410 Output Total 400 650 Balance 750 760 Lab Results Last 24 Hours: Laboratory Results - last 24 hr 11/21/16 11/22/16 11/22/16 Range/Units 13:06 04:20 04:20 WBC 13.31 H (4.0-11.0) K/uL RBC 3.41 L (4.30-5.90) M/uL Hgb 11.5 L (12.0-16.0) g/dL Hct 35.2 L (36.0-46.0) % MCV 103.2 H (80.0-98.0) fL MCH 33.7 H (27.0-32.0) pg MCHC 32.7 (31.0-37.0) g/dL RDW Std Deviation 50.8 (28.0-62.0) fl RDW Coeff of Julio 13 (11.0-15.0) % Plt Count 154 (150-400) K/uL MPV 11.70 (7.40-12.00) fL Neut % (Auto) 84.7 H (48.0-80.0) % Lymph % (Auto) 7.8 L (16.0-40.0) % [place] % (Auto) 7.4 (0.0-15.0) % Eos % (Auto) 0.0 (0.0-7.0) % Baso % (Auto) 0.1 (0.0-1.5) % Neut # (Auto) 11.3 H (1.4-5.7) K/uL Lymph # (Auto) 1.0 (0.6-2.4) K/uL [place] # (Auto) 1.0 H (0.0-0.8) K/uL Eos # (Auto) 0.0 (0.0-0.7) K/uL Baso # (Auto) 0.0 (0.0-0.1) K/uL Nucleated RBC % 0.0 /100WBC Nucleated RBCs # 0 K/uL Lactate 1.1 (0.20-2.00) mmol/L Sodium 144 (136-146) mmol/L Potassium 4.4 (3.5-5.1) mmol/L Chloride 116 H (98-110) mmol/L Carbon Dioxide 9 L (21-31) mmol/L BUN 25 H (6.0-23.0) mg/dL Creatinine 0.7 (0.6-1.5) mg/dL Est Cr Clr Drug Dosing 67.93 mL/min Estimated GFR (MDRD) > 60.0 ml/min Glucose 62 (60-110) mg/dL Calcium 7.9 L (8.8-10.8) mg/dL Sloan Results Last 24 Hours: Microbiology 11/20/16 17:10 Urine Culture - Final Urine, Quick Cath (In-Out) Escherichia Coli 11/20/16 15:39 Aerobic Blood Culture - Preliminary Blood - Venous - Lab Draw NO GROWTH AFTER 1 DAY Anaerobic Blood Culture - Final 11/20/16 15:30 Aerobic Blood Culture - Preliminary Blood - Venous NO GROWTH AFTER 1 DAY Anaerobic Blood Culture - Preliminary NO GROWTH AFTER 1 DAY Med Orders - Current: Current Medications Acetaminophen (Tylenol) 325 mg PO Q4H PRN PRN Reason: Fever Last Admin: 11/21/16 22:43 Dose: 325 mg Albuterol/Ipratropium (Duoneb 3.0-0.5 Mg/3 Ml) 3 ml NEB Q4HRRT PRN PRN Reason: Shortness Of Breath/wheezing Baclofen (Lioresal) 10 mg GTUBE BID [facility] Last Admin: 11/22/16 08:55 Dose: 10 mg Baclofen (Lioresal) 10 mg PO BID PRN PRN Reason: muscle tightness Last Admin: 11/21/16 01:37 Dose: 10 mg Enoxaparin Sodium (Lovenox) 40 mg SUBCUT DAILY [facility] Last Admin: 11/22/16 08:55 Dose: 40 mg Famotidine (Pepcid) 20 mg IVPUSH DAILY [facility] Last Admin: 11/22/16 08:56 Dose: 20 mg Piperacillin Sod/Tazobactam (Sod 3.375 gm/ Sodium Chloride) 50 mls @ 100 mls/ hr IV Q6H [facility] Last Admin: 11/22/16 05:14 Dose: 100 mls/hr Vancomycin HCl 750 mg/ Sodium (Chloride) 250 mls @ 166.667 mls/hr IV Q12H [facility] Last Admin: 11/22/16 06:32 Dose: 166.667 mls/hr Sodium Chloride (Normal Saline) 250 mls @ 500 mls/hr IV .BOLUS [facility] Last Admin: 11/22/16 01:46 Dose: 500 mls/hr Dextrose/Water (Dextrose 5% In Water) 1,000 mls @ 100 mls/hr IV ASDIRECTED [facility] Metoprolol Tartrate (Lopressor) 5 mg IVPUSH Q6H PRN PRN Reason: Tachycardia Last Admin: 11/21/16 02:15 Dose: 5 mg Morphine Sulfate (Morphine) 2 mg IVPUSH Q2H PRN PRN Reason: Pain Last Admin: 11/21/16 19:38 Dose: 2 mg Multivitamins/Minerals/Vitamin C (Tab-A-Joseph) 1 tab .XX DAILY [facility] Last Admin: 11/22/16 08:54 Dose: 1 tab Ondansetron HCl (Zofran) 4 mg IVPUSH Q4H PRN PRN Reason: Nausea Sertraline HCl (Zoloft) 100 mg GTUBE DAILY [facility] Last Admin: 11/22/16 08:55 Dose: 100 mg Vancomycin HCl (Pharmacy To Dose - Vancomycin) 1 dose .XX ASDIRECTED [facility] Discontinued Medications Bisacodyl (Dulcolax) 10 mg RECTAL ONETIME ONE Stop: 11/20/16 16:41 Last Admin: 11/20/16 17:56 Dose: 10 mg Bisacodyl (Dulcolax) 10 mg RECTAL ONETIME ONE Stop: 11/21/16 22:31 Last Admin: 11/22/16 01:43 Dose: 10 mg Bisacodyl (Dulcolax) Confirm Administered Dose 10 mg .ROUTE .STK-MED ONE Stop: 11/22/16 01:43 Last Admin: 11/22/16 01:48 Dose: Not Given Levofloxacin/Dextrose 750 mg/ (Premix) 150 mls @ 100 mls/hr IV Q24H [facility] Last Admin: 11/21/16 14:14 Dose: 100 mls/hr Sodium Chloride (Normal Saline) 1,000 mls @ 100 mls/hr IV ASDIRECTED [facility] Sodium Chloride (Sodium Chloride 0.45%) 1,000 mls @ 100 mls/hr IV ASDIRECTED [facility] Last Admin: 11/22/16 02:07 Dose: 100 mls/hr Sodium Chloride (Normal Saline) 500 mls @ 999 mls/hr IV .BOLUS ONE Stop: 11/20/16 17:04 Last Admin: 11/20/16 17:38 Dose: 999 mls/hr Sodium Chloride (Normal Saline) 1,000 mls @ 999 mls/hr IV STAT ONE Stop: 11/20/16 20:15 Last Infusion: 11/20/16 20:57 Dose: Infused Sodium Chloride (Normal Saline) 1,000 mls @ 999 mls/hr IV .BOLUS ONE Stop: 11/20/16 23:57 Last Infusion: 11/21/16 00:03 Dose: Infused Lactated Ringer's (Ringers, Lactated) 1,000 mls @ 1,000 mls/hr IV .BOLUS ONE Stop: 11/21/16 07:03 Last Admin: 11/21/16 06:26 Dose: 1,000 mls/hr Magnesium Sulfate 2 gm/ Premix 50 mls @ 50 mls/hr IV ONETIME ONE Stop: 11/21/16 07:59 Last Admin: 11/21/16 09:30 Dose: Not Given Vancomycin HCl 1 gm/ Sodium (Chloride) 250 mls @ 166.667 mls/hr IV Q12H [facility] Stop: 11/21/16 10:00 Last Admin: 11/21/16 07:34 Dose: 166.667 mls/hr Magnesium Sulfate 2 gm/ Premix 50 mls @ 50 mls/hr IV ONETIME ONE Stop: 11/21/16 10:59 Last Admin: 11/21/16 09:55 Dose: 50 mls/hr Lorazepam (Ativan) 1 mg IVPUSH ONETIME ONE Stop: 11/21/16 22:17 Last Admin: 11/21/16 22:34 Dose: 1 mg - Exam General: No Acute Distress Lungs: Rhonchi Cardiovascular: Regular Rate, Regular Rhythm GI/Abdominal Exam: Normal Bowel Sounds, Soft, Non-Tender, No Distention Extremities: Normal Inspection, No Pedal Edema Skin: Warm, Dry, Intact - Problem List Review Problem List Initiated/Reviewed/Updated: Yes - My Orders Last 24 Hours: My Active Orders 11/21/16 19:30 Vancomycin 750 mg Sodium Chloride 0.9% [Normal Saline] 250 ml IV Q12H 11/22/16 18:30 VANCOMYCIN TROUGH [CHEM] Routine 11/22/16 Breakfast Tube Feeding Adult Diet [DIET] 11/23/16 05:11 MAGNESIUM [CHEM] AM PHOSPHORUS [CHEM] AM 11/24/16 05:11 MAGNESIUM [CHEM] AM PHOSPHORUS [CHEM] AM 11/25/16 05:11 MAGNESIUM [CHEM] AM PHOSPHORUS [CHEM] AM 11/26/16 05:11 MAGNESIUM [CHEM] AM PHOSPHORUS [CHEM] AM 11/27/16 05:11 MAGNESIUM [CHEM] AM PHOSPHORUS [CHEM] AM 11/28/16 05:11 MAGNESIUM [CHEM] AM PHOSPHORUS [CHEM] AM - Plan Plan:: This 41 year old female with sepsis, UTI, constipation 1. Sepsis: lactic acid has normalized. Urine cultures growing E.coli resistant to levaquin. Still following sputum and blood cultures. Will continue vancomycin and zosyn. Echocardiogram pending 2. Distended loops of colon: Stat CT abd/pelvis reveals constipation, redudant sigmoid colon, and G tube in place, General surgery consulted and no surgical intervention indicated. Will continue stool suppositories VTE prophylaxis: Lovenox.
[2016-11-22] MEDS ORDERED: Sodium Bicarbonate 150 MEQ in Dextrose 5% in Water 1,000 ML IV SCH ×2 (14:30)
[2016-11-22 14:47] LABS: CHLORIDE,CL 115 mmol/L (98-110); SODIUM,NA 142 mmol/L (136-146)
[2016-11-22] MEDS: Morphine 2 MG/ML Syringe IVPUSH PRN (15:01)
[2016-11-22] MEDS ORDERED: Potassium Chloride 20 MEQ Packet PO ONE (20:00)
[2016-11-22] MEDS ORDERED: Potassium Chloride 10% 20 MEQ/15 ML Soln 30 ML UD Cup PO ONE (20:58)
[2016-11-22] MEDS ORDERED: Piperacillin/Tazobactam 3.375 GM in Sodium Chloride 0.9% 50 ML IV SCH (21:30)
[2016-11-22] MEDS: Dextrose 5% in Water 1,000 ML IV SCH (22:06)
[2016-11-23] MEDS: Morphine 2 MG/ML Syringe IVPUSH PRN ×3 (01:28→11:15)
[2016-11-23] MEDS: Piperacillin/Tazobactam 3.375 GM in Sodium Chloride 0.9% 50 ML IV SCH ×4 (05:00→21:36)
[2016-11-23 05:09] LABS: CHLORIDE,CL 113 mmol/L (98-110); SODIUM,NA 145 mmol/L (136-146)
[2016-11-23] MEDS ORDERED: Potassium Phosphates 3 mMole/ML 5 ML SDV IV ONE (05:57)
[2016-11-23] MEDS ORDERED: Magnesium Sulfate/Water 2 GM in Premix Bag 1 BAG IV ONE ×2 (05:57→11:21)
[2016-11-23] MEDS ORDERED: DEXTROSE IV ONE ×2 (08:00)
[2016-11-23] MEDS ORDERED: POTASSIUM PHOSPHATES IV ONE ×2 (08:00)
[2016-11-23] MEDS ORDERED: WATER IV ONE ×2 (08:00)
--- NOTE | 2016-11-23 08:05 | PCM.PN ---
- Review of Systems Systems Review Comment:: nonverbal, less agitated this night than previous - Patient Data Vitals - Most Recent: Last Vital Signs Temp 37.2 C 11/23/16 04:00 Pulse 99 11/22/16 07:00 Resp 16 11/23/16 07:00 BP 100/74 11/23/16 07:00 Pulse Ox 95 11/23/16 07:00 Weight - Most Recent: 43.1 kg I&O - Last 24 Hours: Intake & Output 11/22/16 11/23/16 11/23/16 22:59 06:59 14:59 Intake Total 1247 290 Output Total 700 500 Balance 547 -210 Lab Results Last 24 Hours: Laboratory Results - last 24 hr 11/22/16 11/22/16 11/22/16 Range/Units 14:15 14:15 14:15 WBC (4.0-11.0) K/uL RBC (4.30-5.90) M/uL Hgb (12.0-16.0) g/dL Hct (36.0-46.0) % MCV (80.0-98.0) fL MCH (27.0-32.0) pg MCHC (31.0-37.0) g/dL RDW Std Deviation (28.0-62.0) fl RDW Coeff of Julio (11.0-15.0) % Plt Count (150-400) K/uL MPV (7.40-12.00) fL Neut % (Auto) (48.0-80.0) % Lymph % (Auto) (16.0-40.0) % [place] % (Auto) (0.0-15.0) % Eos % (Auto) (0.0-7.0) % Baso % (Auto) (0.0-1.5) % Neut # (Auto) (1.4-5.7) K/uL Lymph # (Auto) (0.6-2.4) K/uL [place] # (Auto) (0.0-0.8) K/uL Eos # (Auto) (0.0-0.7) K/uL Baso # (Auto) (0.0-0.1) K/uL Nucleated RBC % /100WBC Nucleated RBCs # K/uL Lactate 0.5 (0.20-2.00) mmol/L Sodium 142 (136-146) mmol/L Potassium 3.0 L (3.5-5.1) mmol/L Chloride 115 H (98-110) mmol/L Carbon Dioxide 17 L (21-31) mmol/L BUN 19 (6.0-23.0) mg/dL Creatinine 0.7 (0.6-1.5) mg/dL Est Cr Clr Drug Dosing 67.93 mL/min Estimated GFR (MDRD) > 60.0 ml/min Glucose 79 (60-110) mg/dL Calcium 7.9 L (8.8-10.8) mg/dL Phosphorus (2.4-4.7) mg/dL Magnesium (1.5-2.3) mEq/L Urine Ketones (NEGATIVE) mg/dL Ur Random Sodium mmol/L Ur Random Potassium mmol/L Ur Random Chloride mmol/L Vancomycin Trough (5-15) ug/mL Ketones SMALL H (NEG) 11/22/16 11/22/16 11/22/16 Range/Units 14:39 14:39 18:37 WBC (4.0-11.0) K/uL RBC (4.30-5.90) M/uL Hgb (12.0-16.0) g/dL Hct (36.0-46.0) % MCV (80.0-98.0) fL MCH (27.0-32.0) pg MCHC (31.0-37.0) g/dL RDW Std Deviation (28.0-62.0) fl RDW Coeff of Julio (11.0-15.0) % Plt Count (150-400) K/uL MPV (7.40-12.00) fL Neut % (Auto) (48.0-80.0) % Lymph % (Auto) (16.0-40.0) % [place] % (Auto) (0.0-15.0) % Eos % (Auto) (0.0-7.0) % Baso % (Auto) (0.0-1.5) % Neut # (Auto) (1.4-5.7) K/uL Lymph # (Auto) (0.6-2.4) K/uL [place] # (Auto) (0.0-0.8) K/uL Eos # (Auto) (0.0-0.7) K/uL Baso # (Auto) (0.0-0.1) K/uL Nucleated RBC % /100WBC Nucleated RBCs # K/uL Lactate (0.20-2.00) mmol/L Sodium (136-146) mmol/L Potassium (3.5-5.1) mmol/L Chloride (98-110) mmol/L Carbon Dioxide (21-31) mmol/L BUN (6.0-23.0) mg/dL Creatinine (0.6-1.5) mg/dL Est Cr Clr Drug Dosing mL/min Estimated GFR (MDRD) ml/min Glucose (60-110) mg/dL Calcium (8.8-10.8) mg/dL Phosphorus (2.4-4.7) mg/dL Magnesium (1.5-2.3) mEq/L Urine Ketones LARGE H (NEGATIVE) mg/dL Ur Random Sodium 100.0 mmol/L Ur Random Potassium 31.6 mmol/L Ur Random Chloride 107 mmol/L Vancomycin Trough 14.0 (5-15) ug/mL Ketones (NEG) 11/23/16 11/23/16 Range/Units 04:33 04:33 WBC 8.09 (4.0-11.0) K/uL RBC 3.20 L (4.30-5.90) M/uL Hgb 10.9 L (12.0-16.0) g/dL Hct 31.8 L (36.0-46.0) % MCV 99.4 H (80.0-98.0) fL MCH 34.1 H (27.0-32.0) pg MCHC 34.3 (31.0-37.0) g/dL RDW Std Deviation 48.8 (28.0-62.0) fl RDW Coeff of Julio 13 (11.0-15.0) % Plt Count 182 (150-400) K/uL MPV 11.00 (7.40-12.00) fL Neut % (Auto) 69.4 (48.0-80.0) % Lymph % (Auto) 19.5 (16.0-40.0) % [place] % (Auto) 9.8 (0.0-15.0) % Eos % (Auto) 1.2 (0.0-7.0) % Baso % (Auto) 0.1 (0.0-1.5) % Neut # (Auto) 5.6 (1.4-5.7) K/uL Lymph # (Auto) 1.6 (0.6-2.4) K/uL [place] # (Auto) 0.8 (0.0-0.8) K/uL Eos # (Auto) 0.1 (0.0-0.7) K/uL Baso # (Auto) 0.0 (0.0-0.1) K/uL Nucleated RBC % 0.0 /100WBC Nucleated RBCs # 0 K/uL Lactate (0.20-2.00) mmol/L Sodium 145 (136-146) mmol/L Potassium 3.2 L (3.5-5.1) mmol/L Chloride 113 H (98-110) mmol/L Carbon Dioxide 24 (21-31) mmol/L BUN 14 (6.0-23.0) mg/dL Creatinine 0.6 (0.6-1.5) mg/dL Est Cr Clr Drug Dosing 79.25 mL/min Estimated GFR (MDRD) > 60.0 ml/min Glucose 159 H (60-110) mg/dL Calcium 7.9 L (8.8-10.8) mg/dL Phosphorus 1.1 L (2.4-4.7) mg/dL Magnesium 1.4 L (1.5-2.3) mEq/L Urine Ketones (NEGATIVE) mg/dL Ur Random Sodium mmol/L Ur Random Potassium mmol/L Ur Random Chloride mmol/L Vancomycin Trough (5-15) ug/mL Ketones (NEG) [place] Results Last 24 Hours: Microbiology 11/20/16 15:39 Aerobic Blood Culture - Preliminary Blood - Venous - Lab Draw NO GROWTH AFTER 2 DAYS Anaerobic Blood Culture - Final 11/20/16 15:30 Aerobic Blood Culture - Preliminary Blood - Venous NO GROWTH AFTER 2 DAYS Anaerobic Blood Culture - Preliminary NO GROWTH AFTER 2 DAYS 11/20/16 17:26 Gram Stain - Final Sputum - Expectorated Sputum Culture - Final Normal Josy 11/20/16 17:10 Urine Culture - Final Urine, Quick Cath (In-Out) Escherichia Coli Med Orders - Current: Current Medications Acetaminophen (Tylenol) 325 mg PO Q4H PRN PRN Reason: Fever Last Admin: 11/21/16 22:43 Dose: 325 mg Albuterol/Ipratropium (Duoneb 3.0-0.5 Mg/3 Ml) 3 ml NEB Q4HRRT PRN PRN Reason: Shortness Of Breath/wheezing Baclofen (Lioresal) 10 mg GTUBE BID [facility] Last Admin: 11/22/16 20:53 Dose: 10 mg Baclofen (Lioresal) 10 mg PO BID PRN PRN Reason: muscle tightness Last Admin: 11/21/16 01:37 Dose: 10 mg Bisacodyl (Dulcolax) 10 mg RECTAL DAILY PRN PRN Reason: Constipation Enoxaparin Sodium (Lovenox) 40 mg SUBCUT DAILY [facility] Last Admin: 11/22/16 08:55 Dose: 40 mg Famotidine (Pepcid) 20 mg IVPUSH DAILY [facility] Last Admin: 11/22/16 08:56 Dose: 20 mg Vancomycin HCl 750 mg/ Sodium (Chloride) 250 mls @ 166.667 mls/hr IV Q12H [facility] Stop: 11/23/16 10:00 Last Admin: 11/23/16 07:26 Dose: 166.667 mls/hr Sodium Chloride (Normal Saline) 250 mls @ 500 mls/hr IV .BOLUS [facility] Last Admin: 11/22/16 01:46 Dose: 500 mls/hr Piperacillin Sod/Tazobactam (Sod 3.375 gm/ Sodium Chloride) 50 mls @ 100 mls/ hr IV Q6H [facility] Last Admin: 11/23/16 05:00 Dose: 100 mls/hr Dextrose/Water (Dextrose 5% In Water) 1,000 mls @ 125 mls/hr IV ASDIRECTED [facility] Last Admin: 11/22/16 22:06 Dose: 125 mls/hr Vancomycin HCl 750 mg/ Sodium (Chloride) 250 mls @ 166.667 mls/hr IV Q8H [facility] Potassium Phosphate 40 mmole/ (Dextrose/Water) 1,013.3333 mls @ 125 mls/hr IV ONETIME ONE Stop: 11/23/16 16:06 Last Admin: 11/23/16 07:50 Dose: 125 mls/hr Metoprolol Tartrate (Lopressor) 5 mg IVPUSH Q6H PRN PRN Reason: Tachycardia Last Admin: 11/21/16 02:15 Dose: 5 mg Morphine Sulfate (Morphine) 2 mg IVPUSH Q2H PRN PRN Reason: Pain Last Admin: 11/23/16 05:21 Dose: 2 mg Multivitamins/Minerals/Vitamin C (Tab-A-Joseph) 1 tab .XX DAILY [facility] Last Admin: 11/22/16 08:54 Dose: 1 tab Ondansetron HCl (Zofran) 4 mg IVPUSH Q4H PRN PRN Reason: Nausea Polyethylene Glycol (Miralax) 17 gm PO DAILY [facility] Sertraline HCl (Zoloft) 100 mg GTUBE DAILY [facility] Last Admin: 11/22/16 08:55 Dose: 100 mg Vancomycin HCl (Pharmacy To Dose - Vancomycin) 1 dose .XX ASDIRECTED [facility] Discontinued Medications Bisacodyl (Dulcolax) 10 mg RECTAL ONETIME ONE Stop: 11/20/16 16:41 Last Admin: 11/20/16 17:56 Dose: 10 mg Bisacodyl (Dulcolax) 10 mg RECTAL ONETIME ONE Stop: 11/21/16 22:31 Last Admin: 11/22/16 01:43 Dose: 10 mg Bisacodyl (Dulcolax) Confirm Administered Dose 10 mg .ROUTE .STK-MED ONE Stop: 11/22/16 01:43 Last Admin: 11/22/16 01:48 Dose: Not Given Levofloxacin/Dextrose 750 mg/ (Premix) 150 mls @ 100 mls/hr IV Q24H [facility] Last Admin: 11/21/16 14:14 Dose: 100 mls/hr Sodium Chloride (Normal Saline) 1,000 mls @ 100 mls/hr IV ASDIRECTED [facility] Sodium Chloride (Sodium Chloride 0.45%) 1,000 mls @ 100 mls/hr IV ASDIRECTED [facility] Last Admin: 11/22/16 02:07 Dose: 100 mls/hr Sodium Chloride (Normal Saline) 500 mls @ 999 mls/hr IV .BOLUS ONE Stop: 11/20/16 17:04 Last Admin: 11/20/16 17:38 Dose: 999 mls/hr Sodium Chloride (Normal Saline) 1,000 mls @ 999 mls/hr IV STAT ONE Stop: 11/20/16 20:15 Last Infusion: 11/20/16 20:57 Dose: Infused Sodium Chloride (Normal Saline) 1,000 mls @ 999 mls/hr IV .BOLUS ONE Stop: 11/20/16 23:57 Last Infusion: 11/21/16 00:03 Dose: Infused Piperacillin Sod/Tazobactam (Sod 3.375 gm/ Sodium Chloride) 50 mls @ 100 mls/ hr IV Q6H [facility] Last Admin: 11/22/16 21:13 Dose: Not Given Lactated Ringer's (Ringers, Lactated) 1,000 mls @ 1,000 mls/hr IV .BOLUS ONE Stop: 11/21/16 07:03 Last Admin: 11/21/16 06:26 Dose: 1,000 mls/hr Magnesium Sulfate 2 gm/ Premix 50 mls @ 50 mls/hr IV ONETIME ONE Stop: 11/21/16 07:59 Last Admin: 11/21/16 09:30 Dose: Not Given Vancomycin HCl 1 gm/ Sodium (Chloride) 250 mls @ 166.667 mls/hr IV Q12H [facility] Stop: 11/21/16 10:00 Last Admin: 11/21/16 07:34 Dose: 166.667 mls/hr Magnesium Sulfate 2 gm/ Premix 50 mls @ 50 mls/hr IV ONETIME ONE Stop: 11/21/16 10:59 Last Admin: 11/21/16 09:55 Dose: 50 mls/hr Dextrose/Water (Dextrose 5% In Water) 1,000 mls @ 100 mls/hr IV ASDIRECTED [facility] Sodium Bicarbonate 150 meq/ (Dextrose/Water) 1,150 mls @ 80 mls/hr IV .[id number] [facility] Last Admin: 11/22/16 14:56 Dose: 80 mls/hr Piperacillin Sod/Tazobactam (Sod 3.375 gm/ Sodium Chloride) 50 mls @ 100 mls/ hr IV Q6H [facility] Magnesium Sulfate 2 gm/ Premix 50 mls @ 50 mls/hr IV ONETIME ONE Stop: 11/23/16 06:56 Last Admin: 11/23/16 06:19 Dose: 50 mls/hr Lorazepam (Ativan) 1 mg IVPUSH ONETIME ONE Stop: 11/21/16 22:17 Last Admin: 11/21/16 22:34 Dose: 1 mg Potassium Chloride (Klor-Con) 40 meq PO ONETIME ONE Stop: 11/22/16 20:01 Last Admin: 11/22/16 20:53 Dose: Not Given Potassium Chloride (Potassium Chloride) 40 meq PO ONETIME ONE Stop: 11/22/16 20:59 Last Admin: 11/22/16 21:09 Dose: 40 meq Potassium Phosphate (Potassium Phosphates) 40 mmole IV ONETIME ONE Stop: 11/23/16 05:58 - Exam General: No Acute Distress Lungs: Rhonchi Cardiovascular: Regular Rate, Regular Rhythm GI/Abdominal Exam: Soft, Non-Tender, No Distention Extremities: Normal Inspection, No Pedal Edema, Normal Capillary Refill Skin: Warm, Dry, Intact - Problem List Review Problem List Initiated/Reviewed/Updated: Yes - My Orders Last 24 Hours: My Active Orders 11/22/16 11:02 Bisacodyl [Dulcolax] 10 mg RECTAL DAILY PRN 11/22/16 15:17 Barium Enema Therapeutic [CR] Stat 11/22/16 22:00 Piperacillin/Tazobactam [Piperacil-Tazobact] 3.375 gm Sodium Chloride 0.9% [ Normal Saline] 50 ml IV Q6H 11/23/16 15:30 Vancomycin 750 mg Sodium Chloride 0.9% [Normal Saline] 250 ml IV Q8H 11/24/16 05:11 MAGNESIUM [CHEM] AM PHOSPHORUS [CHEM] AM 11/24/16 14:30 VANCOMYCIN TROUGH [CHEM] Routine 11/25/16 05:11 MAGNESIUM [CHEM] AM PHOSPHORUS [CHEM] AM 11/26/16 05:11 MAGNESIUM [CHEM] AM PHOSPHORUS [CHEM] AM 11/27/16 05:11 MAGNESIUM [CHEM] AM PHOSPHORUS [CHEM] AM 11/28/16 05:11 MAGNESIUM [CHEM] AM PHOSPHORUS [CHEM] AM - Plan Plan:: This 41 year old female with cerebral palsy with sepsis, UTI, constipation 1. Sepsis: lactic acid has normalized. White count decreased to 8,090. Urine cultures growing E.coli resistant to levaquin. Still following blood cultures. Will continue vancomycin and zosyn. Echocardiogram pending 2. Distended loops of colon: CT abd/pelvis reveals constipation, redudant sigmoid colon, and G tube in place, General surgery consulted and no surgical intervention indicated. Gastrographin enema was performed yesterday. Will continue stool suppositories VTE prophylaxis: Lovenox.
--- NOTE | 2016-11-23 08:29 | CR ---
EXAMINATION: Gastrografin enema HISTORY: Constipation COMPARISON: 11/22/2016 TECHNIQUE: A standard Gastrografin enema was performed using 50-50 dilution. FINDINGS: The colon and rectum are normal and distensible. No stricture identified. A moderate amount of stool is noted within the colon. Contrast is noted to the level of the cecum. No reflux into the terminal ileum. No extravasation. IMPRESSION: Successful Gastrografin enema without evidence of a stricture.
[2016-11-23] MEDS: Enoxaparin 40 MG/0.4 ML Syringe SUBCUT SCH (08:35)
[2016-11-23] MEDS: Sertraline 100 MG Tab GTUBE SCH (08:35)
[2016-11-23] MEDS: Baclofen 10 MG Tab GTUBE SCH ×2 (08:35→21:34)
[2016-11-23] MEDS: Famotidine 20 MG/2 ML SDV IVPUSH SCH (08:35)
[2016-11-23] MEDS: Multivitamin Tab SCH (08:35)
[2016-11-23] MEDS: Polyethylene Glycol 3350 Powder 17 GM Packet PO SCH (08:36)
[2016-11-23] MEDS: Dextrose 5% in Water 1,000 ML IV SCH (17:37)
[2016-11-23] MEDS ORDERED: Potassium Chloride 10% 20 MEQ/15 ML Soln 30 ML UD Cup PO ONE (20:51)
[2016-11-24] MEDS: Piperacillin/Tazobactam 3.375 GM in Sodium Chloride 0.9% 50 ML IV SCH ×4 (03:29→21:56)
[2016-11-24] MEDS: Morphine 2 MG/ML Syringe IVPUSH PRN ×2 (05:12→20:55)
[2016-11-24] MEDS ORDERED: LORazepam 2 MG/ML MDV IVPUSH ONE (05:47)
[2016-11-24 06:12] LABS: CHLORIDE,CL 111 mmol/L (98-110); SODIUM,NA 146 mmol/L (136-146)
[2016-11-24] MEDS: Acetaminophen 325 MG/10.15 ML ML PO PRN ×3 (08:38→17:30)
[2016-11-24] MEDS: Polyethylene Glycol 3350 Powder 17 GM Packet PO SCH (08:38)
[2016-11-24] MEDS: Baclofen 10 MG Tab GTUBE SCH ×2 (08:39→20:26)
[2016-11-24] MEDS: Sertraline 100 MG Tab GTUBE SCH (08:39)
[2016-11-24] MEDS: Enoxaparin 40 MG/0.4 ML Syringe SUBCUT SCH (08:39)
[2016-11-24] MEDS: Famotidine 20 MG/2 ML SDV IVPUSH SCH (08:39)
[2016-11-24] MEDS: Multivitamin Tab SCH (08:39)
[2016-11-24] MEDS: Phosphorus #1 250 MG Tab PO SCH ×3 (08:49→17:30)
[2016-11-24] MEDS ORDERED: Magnesium Sulfate/Water 2 GM in Premix Bag 1 BAG IV ONE (10:13)
--- NOTE | 2016-11-24 10:18 | PCM.PN ---
- Review of Systems Systems Review Comment:: patient is nonerbal but is looking right and left for yes and no. - Patient Data Vitals - Most Recent: Last Vital Signs Temp 37.1 C 11/24/16 07:44 Pulse 121 H 11/24/16 09:00 Resp 20 11/24/16 09:00 BP 109/82 11/24/16 09:00 Pulse Ox 96 11/24/16 09:00 Weight - Most Recent: 44.1 kg I&O - Last 24 Hours: Intake & Output 11/23/16 11/24/16 11/24/16 22:59 06:59 14:59 Intake Total 2789 650 50 Output Total 3458 5305 Balance 1037 -2175 50 Lab Results Last 24 Hours: Laboratory Results - last 24 hr 11/24/16 11/24/16 Range/Units 05:06 05:06 WBC 8.39 (4.0-11.0) K/uL RBC 3.95 L (4.30-5.90) M/uL Hgb 13.4 (12.0-16.0) g/dL Hct 39.1 (36.0-46.0) % MCV 99.0 H (80.0-98.0) fL MCH 33.9 H (27.0-32.0) pg MCHC 34.3 (31.0-37.0) g/dL RDW Std Deviation 49.0 (28.0-62.0) fl RDW Coeff of Julio 14 (11.0-15.0) % Plt Count 264 (150-400) K/uL MPV 11.30 (7.40-12.00) fL Nucleated RBC % 0.0 /100WBC Nucleated RBCs # 0 K/uL Sodium 146 (136-146) mmol/L Potassium 4.1 (3.5-5.1) mmol/L Chloride 111 H (98-110) mmol/L Carbon Dioxide 23 (21-31) mmol/L BUN 8 (6.0-23.0) mg/dL Creatinine 0.6 (0.6-1.5) mg/dL Est Cr Clr Drug Dosing 85.03 mL/min Estimated GFR (MDRD) > 60.0 ml/min Glucose 98 (60-110) mg/dL Calcium 8.9 (8.8-10.8) mg/dL Phosphorus 1.9 L (2.4-4.7) mg/dL Magnesium 1.6 (1.5-2.3) mEq/L [facility] Results Last 24 Hours: Microbiology 11/20/16 15:39 Aerobic Blood Culture - Preliminary Blood - Venous - Lab Draw NO GROWTH AFTER 3 DAYS Anaerobic Blood Culture - Final 11/20/16 15:30 Aerobic Blood Culture - Preliminary Blood - Venous NO GROWTH AFTER 3 DAYS Anaerobic Blood Culture - Preliminary NO GROWTH AFTER 3 DAYS Med Orders - Current: Current Medications Acetaminophen (Tylenol) 325 mg PO Q4H PRN PRN Reason: Fever Last Admin: 11/24/16 08:38 Dose: 325 mg Albuterol/Ipratropium (Duoneb 3.0-0.5 Mg/3 Ml) 3 ml NEB Q4HRRT PRN PRN Reason: Shortness Of Breath/wheezing Baclofen (Lioresal) 10 mg GTUBE BID [facility] Last Admin: 11/24/16 08:39 Dose: 10 mg Baclofen (Lioresal) 10 mg PO BID PRN PRN Reason: muscle tightness Last Admin: 11/21/16 01:37 Dose: 10 mg Bisacodyl (Dulcolax) 10 mg RECTAL DAILY PRN PRN Reason: Constipation Last Admin: 11/23/16 09:15 Dose: 10 mg Enoxaparin Sodium (Lovenox) 40 mg SUBCUT DAILY [facility] Last Admin: 11/24/16 08:39 Dose: 40 mg Famotidine (Pepcid) 20 mg IVPUSH DAILY [facility] Last Admin: 11/24/16 08:39 Dose: 20 mg Sodium Chloride (Normal Saline) 250 mls @ 500 mls/hr IV .BOLUS [facility] Last Admin: 11/22/16 01:46 Dose: 500 mls/hr Piperacillin Sod/Tazobactam (Sod 3.375 gm/ Sodium Chloride) 50 mls @ 100 mls/ hr IV Q6H [facility] Last Admin: 11/24/16 09:00 Dose: 100 mls/hr Vancomycin HCl 750 mg/ Sodium (Chloride) 250 mls @ 166.667 mls/hr IV Q8H [facility] Last Admin: 11/24/16 06:32 Dose: 166.667 mls/hr Magnesium Sulfate 2 gm/ Premix 50 mls @ 50 mls/hr IV ONETIME ONE Stop: 11/24/16 11:12 Metoprolol Tartrate (Lopressor) 5 mg IVPUSH Q6H PRN PRN Reason: Tachycardia Last Admin: 11/21/16 02:15 Dose: 5 mg Morphine Sulfate (Morphine) 2 mg IVPUSH Q2H PRN PRN Reason: Pain Last Admin: 11/24/16 05:12 Dose: 2 mg Multivitamins/Minerals/Vitamin C (Tab-A-Joseph) 1 tab .XX DAILY [facility] Last Admin: 11/24/16 08:39 Dose: 1 tab Ondansetron HCl (Zofran) 4 mg IVPUSH Q4H PRN PRN Reason: Nausea Polyethylene Glycol (Miralax) 17 gm PO DAILY [facility] Last Admin: 11/24/16 08:38 Dose: 17 gm Sertraline HCl (Zoloft) 100 mg GTUBE DAILY [facility] Last Admin: 11/24/16 08:39 Dose: 100 mg Sodium Phosphate (Neutra-Phos) 250 mg PO QID [facility] Last Admin: 11/24/16 08:49 Dose: 250 mg Vancomycin HCl (Pharmacy To Dose - Vancomycin) 1 dose .XX ASDIRECTED [facility] Discontinued Medications Bisacodyl (Dulcolax) 10 mg RECTAL ONETIME ONE Stop: 11/20/16 16:41 Last Admin: 11/20/16 17:56 Dose: 10 mg Bisacodyl (Dulcolax) 10 mg RECTAL ONETIME ONE Stop: 11/21/16 22:31 Last Admin: 11/22/16 01:43 Dose: 10 mg Bisacodyl (Dulcolax) Confirm Administered Dose 10 mg .ROUTE .STK-MED ONE Stop: 11/22/16 01:43 Last Admin: 11/22/16 01:48 Dose: Not Given Levofloxacin/Dextrose 750 mg/ (Premix) 150 mls @ 100 mls/hr IV Q24H [facility] Last Admin: 11/21/16 14:14 Dose: 100 mls/hr Sodium Chloride (Normal Saline) 1,000 mls @ 100 mls/hr IV ASDIRECTED [facility] Sodium Chloride (Sodium Chloride 0.45%) 1,000 mls @ 100 mls/hr IV ASDIRECTED [facility] Last Admin: 11/22/16 02:07 Dose: 100 mls/hr Sodium Chloride (Normal Saline) 500 mls @ 999 mls/hr IV .BOLUS ONE Stop: 11/20/16 17:04 Last Admin: 11/20/16 17:38 Dose: 999 mls/hr Sodium Chloride (Normal Saline) 1,000 mls @ 999 mls/hr IV STAT ONE Stop: 11/20/16 20:15 Last Infusion: 11/20/16 20:57 Dose: Infused Sodium Chloride (Normal Saline) 1,000 mls @ 999 mls/hr IV .BOLUS ONE Stop: 11/20/16 23:57 Last Infusion: 11/21/16 00:03 Dose: Infused Piperacillin Sod/Tazobactam (Sod 3.375 gm/ Sodium Chloride) 50 mls @ 100 mls/ hr IV Q6H [facility] Last Admin: 11/22/16 21:13 Dose: Not Given Lactated Ringer's (Ringers, Lactated) 1,000 mls @ 1,000 mls/hr IV .BOLUS ONE Stop: 11/21/16 07:03 Last Admin: 11/21/16 06:26 Dose: 1,000 mls/hr Magnesium Sulfate 2 gm/ Premix 50 mls @ 50 mls/hr IV ONETIME ONE Stop: 11/21/16 07:59 Last Admin: 11/21/16 09:30 Dose: Not Given Vancomycin HCl 1 gm/ Sodium (Chloride) 250 mls @ 166.667 mls/hr IV Q12H [facility] Stop: 11/21/16 10:00 Last Admin: 11/21/16 07:34 Dose: 166.667 mls/hr Vancomycin HCl 750 mg/ Sodium (Chloride) 250 mls @ 166.667 mls/hr IV Q12H [facility] Stop: 11/23/16 10:00 Last Admin: 11/23/16 07:26 Dose: 166.667 mls/hr Magnesium Sulfate 2 gm/ Premix 50 mls @ 50 mls/hr IV ONETIME ONE Stop: 11/21/16 10:59 Last Admin: 11/21/16 09:55 Dose: 50 mls/hr Dextrose/Water (Dextrose 5% In Water) 1,000 mls @ 100 mls/hr IV ASDIRECTED [facility] Sodium Bicarbonate 150 meq/ (Dextrose/Water) 1,150 mls @ 80 mls/hr IV .[id number] [facility] Last Admin: 11/22/16 14:56 Dose: 80 mls/hr Piperacillin Sod/Tazobactam (Sod 3.375 gm/ Sodium Chloride) 50 mls @ 100 mls/ hr IV Q6H [facility] Dextrose/Water (Dextrose 5% In Water) 1,000 mls @ 125 mls/hr IV ASDIRECTED [facility] Last Admin: 11/23/16 17:37 Dose: 125 mls/hr Magnesium Sulfate 2 gm/ Premix 50 mls @ 50 mls/hr IV ONETIME ONE Stop: 11/23/16 06:56 Last Admin: 11/23/16 06:19 Dose: 50 mls/hr Potassium Phosphate 40 mmole/ (Dextrose/Water) 1,013.3333 mls @ 125 mls/hr IV ONETIME ONE Stop: 11/23/16 16:06 Last Admin: 11/23/16 07:50 Dose: 125 mls/hr Magnesium Sulfate 2 gm/ Premix 50 mls @ 50 mls/hr IV ONETIME ONE Stop: 11/23/16 12:20 Last Admin: 11/23/16 11:36 Dose: Not Given Lorazepam (Ativan) 1 mg IVPUSH ONETIME ONE Stop: 11/21/16 22:17 Last Admin: 11/21/16 22:34 Dose: 1 mg Lorazepam (Ativan) 0.5 mg IVPUSH ONETIME ONE Stop: 11/24/16 05:48 Last Admin: 11/24/16 06:00 Dose: Not Given Potassium Chloride (Klor-Con) 40 meq PO ONETIME ONE Stop: 11/22/16 20:01 Last Admin: 11/22/16 20:53 Dose: Not Given Potassium Chloride (Potassium Chloride) 40 meq PO ONETIME ONE Stop: 11/22/16 20:59 Last Admin: 11/22/16 21:09 Dose: 40 meq Potassium Phosphate (Potassium Phosphates) 40 mmole IV ONETIME ONE Stop: 11/23/16 05:58 - Exam General: Cooperative, No Acute Distress Lungs: Rhonchi Cardiovascular: Regular Rate, Regular Rhythm GI/Abdominal Exam: Normal Bowel Sounds, Soft, Non-Tender, No Distention Extremities: No Pedal Edema Skin: Warm, Dry, Intact - Problem List Review Problem List Initiated/Reviewed/Updated: Yes - My Orders Last 24 Hours: My Active Orders 11/23/16 15:30 Vancomycin 750 mg Sodium Chloride 0.9% [Normal Saline] 250 ml IV Q8H 11/24/16 10:13 Magnesium Sulfate/Water [Magnesium Sulfate 2 GM in Water 50 ML] 2 gm Premix Bag 1 bag IV ONETIME 11/24/16 14:30 VANCOMYCIN TROUGH [CHEM] Routine 11/25/16 05:11 MAGNESIUM [CHEM] AM PHOSPHORUS [CHEM] AM 11/26/16 05:11 MAGNESIUM [CHEM] AM PHOSPHORUS [CHEM] AM 11/27/16 05:11 MAGNESIUM [CHEM] AM PHOSPHORUS [CHEM] AM 11/28/16 05:11 MAGNESIUM [CHEM] AM PHOSPHORUS [CHEM] AM - Plan Plan:: This 41 year old female with cerebral palsy with sepsis, UTI, constipation 1. Ecoli uti: will d/c vancomycin, continue zosyn 2. Ileus: resolving, continue bowel regiment hypophosphatemia: replacing VTE prophylaxis: Lovenox.
--- NOTE | 2016-11-24 11:22 | ECHO ---
EXAM DATE: 11/20/16 PATIENT'S AGE: 41 The echocardiogram report can be seen in this patient's EMR (Electronic Medical Record) in the Reports section. The report has also been scanned into PACS. NOE
[2016-11-24] MEDS: Metoprolol Tartrate 5 MG/5 ML SDV IVPUSH PRN (13:41)
[2016-11-25] MEDS: Phosphorus #1 250 MG Tab PO SCH ×3 (00:56→11:14)
[2016-11-25] MEDS: Morphine 2 MG/ML Syringe IVPUSH PRN ×2 (04:03→11:22)
[2016-11-25] MEDS: Piperacillin/Tazobactam 3.375 GM in Sodium Chloride 0.9% 50 ML IV SCH ×2 (04:09→11:14)
[2016-11-25] MEDS ORDERED: LORazepam 0.5 MG Tab FTUBE ONE (04:52)
[2016-11-25] MEDS: Baclofen 10 MG Tab GTUBE SCH (08:24)
[2016-11-25] MEDS: Famotidine 20 MG/2 ML SDV IVPUSH SCH (08:24)
[2016-11-25] MEDS: Multivitamin Tab SCH (08:24)
[2016-11-25] MEDS: Polyethylene Glycol 3350 Powder 17 GM Packet PO SCH (08:25)
[2016-11-25] MEDS: Enoxaparin 40 MG/0.4 ML Syringe SUBCUT SCH (08:25)
[2016-11-25] MEDS: Sertraline 100 MG Tab GTUBE SCH (08:26)
--- NOTE | 2016-11-25 10:56 | PCM.DCSUM1 ---
Discharge Summary - Discharge Data Discharge Date: 11/25/16 Discharge Disposition: Home, Self-Care 01 Condition: Good - Patient Summary/Data Consults: Consultations 11/21/16 07:00 Consult to Physician [CONS] Routine Hospital Course: Hospital diagnosis Sepsis from Ecoli UTI Ilieus Hypomphosphatemai Hypomagnesia Possible aspiration pneumonia Hospital Course: This 41 year old female with pmh of cerebral palsy, non-verbal , with G-tube in place for feedings and medication administration presented to Dr. Luevano's clinic today with worsening symptoms of cough, increased secretions and agitation. Laboratory values significant of sodium of 148, WBC of 13.3 Magnesium of 1.3, Phosphate of 1.1, lactate of 3.6 Chest x-ray reported no acute cardiopulmonary process but dialated loops of bowel. CT abdomen reported large amount of retained stool. She was initially treate with IV fluids, levaquin and suppositories for suspect pneumonia and constipation. She was transfered to ICU due to worsening tachypnea and tachycardia and agitation. Her antibiotics were increased to vancomycin and zosyn. General surgery was consulted but recommended continued medical management. Blood cultures were negative but urine cultures grew out greater than 100,000 colonies of E.coli that was resistant to levaquin. She did have a gastrographin enema that reported no strictures. On a bowel regiment with miralax she is having regular bowel movements and tolerating tube feedings. Her agitation and secretions have improved and lactic acid and leukocytosis normalized. Patient is being discharge to assisted today. - Patient Instructions Diet: Usual Diet as Tolerated Activity: As Tolerated - Discharge Plan Prescriptions/Med Rec: Nitrofurantoin Monohyd/M-Cryst [Macrobid 100 mg Capsule] 100 mg PO BID #10 capsule Polyethylene Glycol 3350 [MiraLAX] 17 gm PO DAILY #30 packet Home Medications: Home Meds Multivitamin [Multi-Vitamin Daily] 1 tab PEGTUBE DAILY #0 01/19/15 [Rx] Sertraline [Zoloft] 100 mg PEGTUBE DAILY #0 01/19/15 [Rx] Baclofen 10 mg PEGTUBE BID 05/15/15 [History] medroxyPROGESTERone Acetate [Depo-Provera] 150 mg IM Q90D 05/15/15 [History] Baclofen 10 mg PO BID PRN 11/20/16 [History] Cyanocobalamin (Vitamin B-12) [Vitamin B-12] 1,000 mcg IM Q90D 11/20/16 [History ] Nitrofurantoin Monohyd/M-Cryst [Macrobid 100 mg Capsule] 100 mg PO BID #10 capsule 11/25/16 [Rx] Polyethylene Glycol 3350 [MiraLAX] 17 gm PO DAILY #30 packet 11/25/16 [Rx] Referrals: Yosvany Luevano MD [Primary Care Provider] - 11/30/16 4:30 pm - Patient Data Vitals - Most Recent: Last Vital Signs Temp 36.6 C 11/25/16 05:00 Pulse 126 H 11/24/16 13:41 Resp 20 11/25/16 07:00 BP 127/93 H 11/25/16 07:00 Pulse Ox 93 L 11/25/16 07:00 Weight - Most Recent: 41.2 kg I&O - Last 24 hours: Intake & Output 11/24/16 11/25/16 11/25/16 22:59 06:59 14:59 Intake Total 1478 340 Output Total 1335 800 Balance 143 -460 Lab Results - Last 24 hrs: Laboratory Results - last 24 hr 11/25/16 Range/Units 04:30 Phosphorus 2.8 (2.4-4.7) mg/dL Magnesium 1.9 (1.5-2.3) mEq/L [facility] Results - Last 24 hrs: Microbiology 11/20/16 15:39 Aerobic Blood Culture - Preliminary Blood - Venous - Lab Draw NO GROWTH AFTER 4 DAYS Anaerobic Blood Culture - Final 11/20/16 15:30 Aerobic Blood Culture - Preliminary Blood - Venous NO GROWTH AFTER 4 DAYS Anaerobic Blood Culture - Preliminary NO GROWTH AFTER 4 DAYS Med Orders - Current: Current Medications Acetaminophen (Tylenol) 325 mg PO Q4H PRN PRN Reason: Fever Last Admin: 11/24/16 17:30 Dose: 325 mg Albuterol/Ipratropium (Duoneb 3.0-0.5 Mg/3 Ml) 3 ml NEB Q4HRRT PRN PRN Reason: Shortness Of Breath/wheezing Baclofen (Lioresal) 10 mg GTUBE BID [facility] Last Admin: 11/25/16 08:24 Dose: 10 mg Baclofen (Lioresal) 10 mg PO BID PRN PRN Reason: muscle tightness Last Admin: 11/21/16 01:37 Dose: 10 mg Bisacodyl (Dulcolax) 10 mg RECTAL DAILY PRN PRN Reason: Constipation Last Admin: 11/23/16 09:15 Dose: 10 mg Enoxaparin Sodium (Lovenox) 40 mg SUBCUT DAILY [facility] Last Admin: 11/25/16 08:25 Dose: 40 mg Famotidine (Pepcid) 20 mg IVPUSH DAILY [facility] Last Admin: 11/25/16 08:24 Dose: 20 mg Piperacillin Sod/Tazobactam (Sod 3.375 gm/ Sodium Chloride) 50 mls @ 100 mls/ hr IV Q6H [facility] Last Admin: 11/25/16 04:09 Dose: 100 mls/hr Metoprolol Tartrate (Lopressor) 5 mg IVPUSH Q6H PRN PRN Reason: Tachycardia Last Admin: 11/24/16 13:41 Dose: 5 mg Morphine Sulfate (Morphine) 2 mg IVPUSH Q2H PRN PRN Reason: Pain Last Admin: 11/25/16 04:03 Dose: 2 mg Multivitamins/Minerals/Vitamin C (Tab-A-Joseph) 1 tab .XX DAILY [facility] Last Admin: 11/25/16 08:24 Dose: 1 tab Ondansetron HCl (Zofran) 4 mg IVPUSH Q4H PRN PRN Reason: Nausea Polyethylene Glycol (Miralax) 17 gm PO DAILY [facility] Last Admin: 11/25/16 08:25 Dose: 17 gm Sertraline HCl (Zoloft) 100 mg GTUBE DAILY [facility] Last Admin: 11/25/16 08:26 Dose: 100 mg Sodium Phosphate (Neutra-Phos) 250 mg PO QID [facility] Last Admin: 11/25/16 05:24 Dose: 250 mg Discontinued Medications Bisacodyl (Dulcolax) 10 mg RECTAL ONETIME ONE Stop: 11/20/16 16:41 Last Admin: 11/20/16 17:56 Dose: 10 mg Bisacodyl (Dulcolax) 10 mg RECTAL ONETIME ONE Stop: 11/21/16 22:31 Last Admin: 11/22/16 01:43 Dose: 10 mg Bisacodyl (Dulcolax) Confirm Administered Dose 10 mg .ROUTE .STK-MED ONE Stop: 11/22/16 01:43 Last Admin: 11/22/16 01:48 Dose: Not Given Levofloxacin/Dextrose 750 mg/ (Premix) 150 mls @ 100 mls/hr IV Q24H [facility] Last Admin: 11/21/16 14:14 Dose: 100 mls/hr Sodium Chloride (Normal Saline) 1,000 mls @ 100 mls/hr IV ASDIRECTED [facility] Sodium Chloride (Sodium Chloride 0.45%) 1,000 mls @ 100 mls/hr IV ASDIRECTED [facility] Last Admin: 11/22/16 02:07 Dose: 100 mls/hr Sodium Chloride (Normal Saline) 500 mls @ 999 mls/hr IV .BOLUS ONE Stop: 11/20/16 17:04 Last Admin: 11/20/16 17:38 Dose: 999 mls/hr Sodium Chloride (Normal Saline) 1,000 mls @ 999 mls/hr IV STAT ONE Stop: 11/20/16 20:15 Last Infusion: 11/20/16 20:57 Dose: Infused Sodium Chloride (Normal Saline) 1,000 mls @ 999 mls/hr IV .BOLUS ONE Stop: 11/20/16 23:57 Last Infusion: 11/21/16 00:03 Dose: Infused Piperacillin Sod/Tazobactam (Sod 3.375 gm/ Sodium Chloride) 50 mls @ 100 mls/ hr IV Q6H [facility] Last Admin: 11/22/16 21:13 Dose: Not Given Lactated Ringer's (Ringers, Lactated) 1,000 mls @ 1,000 mls/hr IV .BOLUS ONE Stop: 11/21/16 07:03 Last Admin: 11/21/16 06:26 Dose: 1,000 mls/hr Magnesium Sulfate 2 gm/ Premix 50 mls @ 50 mls/hr IV ONETIME ONE Stop: 11/21/16 07:59 Last Admin: 11/21/16 09:30 Dose: Not Given Vancomycin HCl 1 gm/ Sodium (Chloride) 250 mls @ 166.667 mls/hr IV Q12H [facility] Stop: 11/21/16 10:00 Last Admin: 11/21/16 07:34 Dose: 166.667 mls/hr Vancomycin HCl 750 mg/ Sodium (Chloride) 250 mls @ 166.667 mls/hr IV Q12H [facility] Stop: 11/23/16 10:00 Last Admin: 11/23/16 07:26 Dose: 166.667 mls/hr Magnesium Sulfate 2 gm/ Premix 50 mls @ 50 mls/hr IV ONETIME ONE Stop: 11/21/16 10:59 Last Admin: 11/21/16 09:55 Dose: 50 mls/hr Sodium Chloride (Normal Saline) 250 mls @ 500 mls/hr IV .BOLUS [facility] Last Admin: 11/22/16 01:46 Dose: 500 mls/hr Dextrose/Water (Dextrose 5% In Water) 1,000 mls @ 100 mls/hr IV ASDIRECTED [facility] Sodium Bicarbonate 150 meq/ (Dextrose/Water) 1,150 mls @ 80 mls/hr IV .[id number] [facility] Last Admin: 11/22/16 14:56 Dose: 80 mls/hr Piperacillin Sod/Tazobactam (Sod 3.375 gm/ Sodium Chloride) 50 mls @ 100 mls/ hr IV Q6H [facility] Dextrose/Water (Dextrose 5% In Water) 1,000 mls @ 125 mls/hr IV ASDIRECTED [facility] Last Admin: 11/23/16 17:37 Dose: 125 mls/hr Magnesium Sulfate 2 gm/ Premix 50 mls @ 50 mls/hr IV ONETIME ONE Stop: 11/23/16 06:56 Last Admin: 11/23/16 06:19 Dose: 50 mls/hr Vancomycin HCl 750 mg/ Sodium (Chloride) 250 mls @ 166.667 mls/hr IV Q8H [facility] Last Admin: 11/24/16 06:32 Dose: 166.667 mls/hr Potassium Phosphate 40 mmole/ (Dextrose/Water) 1,013.3333 mls @ 125 mls/hr IV ONETIME ONE Stop: 11/23/16 16:06 Last Admin: 11/23/16 07:50 Dose: 125 mls/hr Magnesium Sulfate 2 gm/ Premix 50 mls @ 50 mls/hr IV ONETIME ONE Stop: 11/23/16 12:20 Last Admin: 11/23/16 11:36 Dose: Not Given Magnesium Sulfate 2 gm/ Premix 50 mls @ 50 mls/hr IV ONETIME ONE Stop: 11/24/16 11:12 Last Admin: 11/24/16 10:25 Dose: 50 mls/hr Lorazepam (Ativan) 1 mg IVPUSH ONETIME ONE Stop: 11/21/16 22:17 Last Admin: 11/21/16 22:34 Dose: 1 mg Lorazepam (Ativan) 0.5 mg IVPUSH ONETIME ONE Stop: 11/24/16 05:48 Last Admin: 11/24/16 06:00 Dose: Not Given Lorazepam (Ativan) 0.5 mg FTUBE ONETIME ONE Stop: 11/25/16 04:53 Last Admin: 11/25/16 05:10 Dose: 0.5 mg Potassium Chloride (Klor-Con) 40 meq PO ONETIME ONE Stop: 11/22/16 20:01 Last Admin: 11/22/16 20:53 Dose: Not Given Potassium Chloride (Potassium Chloride) 40 meq PO ONETIME ONE Stop: 11/22/16 20:59 Last Admin: 11/22/16 21:09 Dose: 40 meq Potassium Phosphate (Potassium Phosphates) 40 mmole IV ONETIME ONE Stop: 11/23/16 05:58 Vancomycin HCl (Pharmacy To Dose - Vancomycin) 1 dose .XX ASDIRECTED [facility] *Q Meaningful Use (DIS) - VTE *Q VTE Criteria *Q: - Stroke *Q Stroke Criteria *Q: - AMI *Q AMI Criteria *Q:
[2016-11-25 11:11] VITALS: BP 126/90
== END 2016-11-25 12:00 | disposition home or self-care (01) | DRG 871 ==
LOC: MW.MS 14:50 → MW.ICU 11-21 05:34
PROVIDERS: ADMIT Internal Medicine; ATTEND Internal Medicine
DX: A41.9 Sepsis, unspecified organism (principal); J69.0 Pneumonitis due to inhalation of food and vomit; N39.0 Urinary tract infection, site not specified; K56.7 Ileus, unspecified; B96.20 Unspecified Escherichia coli [E. coli] as the cause of diseases classified elsewhere; K59.00 Constipation, unspecified; E83.39 Other disorders of phosphorus metabolism; R09.02 Hypoxemia; R00.0 Tachycardia, unspecified; G80.9 Cerebral palsy, unspecified; Z93.1 Gastrostomy status; Z88.8 Allergy status to other drugs, medicaments and biological substances; Z91.040 Latex allergy status; Z79.899 Other long term (current) drug therapy
CPT/HCPCS: 36415; 36600; 51703; 71010; 71010-26; 74000; 74000-26; 74176; 74176-26; 74283; 74283-26; 80048; 80053; 80202; 81001; 81003; 82009; 82150; 82436; 82803; 83605; 83690; 83735; 84100; 84133; 84300; 84484; 85025; 85027; 87040; 87070; 87086; 87088; 87186; 87205; 93005; 93306; A9270-GY; J1650; J1956; J2060; J2270; J2543; J3370; J3475; J7030; J7040; J7050; J7060; J7120

== ENCOUNTER 2016-11-26 07:38 | Emergency (ER) | payer MEDICARE, MEDICAID ==
[2016-11-26] MEDS ORDERED: Succinylcholine 200 MG/10 ML MDV IV ONE (07:39)
[2016-11-26] MEDS ORDERED: Rocuronium 50 MG/5 ML Vial IV ONE (07:39)
[2016-11-26] MEDS ORDERED: Sodium Chloride 0.9% 1,000 ML IV ONE ×5 (07:54→09:12)
[2016-11-26] MEDS ORDERED: cefTRIAXone 1 GM in Premix Bag 1 BAG IV ONE (07:54)
[2016-11-26] MEDS ORDERED: Acetaminophen 650 MG Supp RECTAL ONE (07:54)
[2016-11-26] MEDS ORDERED: Sodium Chloride 0.9% 2.5 ML Syringe FLUSH PRN (07:55)
[2016-11-26] MEDS ORDERED: Sodium Chloride 0.9% 10 ML Syringe FLUSH PRN (07:55)
[2016-11-26] MEDS ORDERED: Piperacillin/Tazobactam 3.375 GM in Sodium Chloride 0.9% 50 ML IV ONE (07:55)
--- NOTE | 2016-11-26 08:13 | EDM.PDOC ---
ED HPI GENERAL MEDICAL PROBLEM - General Time Seen by Provider: 11/26/16 07:45 - History of Present Illness INITIAL COMMENTS - FREE TEXT/NARRATIVE: HISTORY AND PHYSICAL: History of present illness: The patient is a 41-year-old female who lives in a [facility] and has a history of cerebral palsy and a G-tube in place for feedings and was recently hospitalized at our institution from November 20 until yesterday, November 25, for allegedly pneumonia. The patient presented to clinic with upper respiratory symptoms and was admitted and subsequently placed in the ICU for tachypnea and agitation. Her blood cultures were negative but her urine had Escherichia coli sepsis. She was placed on antibiotics and was discharged yesterday back to the [facility] after improvement. According to paramedics they were dispatched to the [facility] for a "seizure" and on arrival the patient did have loss of bowel and was unresponsive. Patient had agonal respiration and was bag valve assisted and had no pulse on EMS arrival. CPR was performed. Patient was not given any medications but after CPR patient regained her pulse and was noted to be in sinus tach. Patient did not regain consciousness but was breathing spontaneously but at a decreased rate of 8. Patient is bedridden and has a G- tube in place for feedings which on patient arrival to the ED was noted to be out of position and on the patient's chest wall. Story around events of this morning is unclear and unknown. She cannot offer any history but she is a full code. Review of systems: As per history of present illness and below otherwise all systems reviewed and negative. Past medical history: As per history of present illness and as reviewed below otherwise noncontributory. Surgical history: As per history of present illness and as reviewed below otherwise noncontributory. Social history: No reported history of drug or alcohol abuse. Family history: As per history of present illness and as reviewed below otherwise noncontributory. Physical exam: General: Very thin and frail female who has obvious atrophy of lower extremities and upper extremities contracture of the right hand and has an intraosseous line visible in the right lower leg and is being bag assisted with respirations. She has obvious loss of bowel in her depends. She is unable to respond and eyes are open. Rectal temp is 107.2 HEENT: Atraumatic, normocephalic, pupils unreactive and left is slightly bigger than the right with the right being 1-2 mm and the left being 2-3 mm, negative for conjunctival pallor or scleral icterus, mucous membranes dry, throat clear, neck supple, nontender, trachea midline. There is no crepitus appreciated in her neck or her chest wall area Lungs: Clear to auscultation with bag assisting, breath sounds equal bilaterally , chest nontender. Heart: S1S2, regular rhythm and tachycardic rate, negative for clicks, rubs, or JVD. Abdomen: Soft, nondistended, G-tube site is seen to the left of the umbilicus and the G-tube is out and present laying on the abdominal wall. Negative for masses or hepatosplenomegaly. There is a midline abdominal scar which is well- healed and abdomen is nondistended bowel sounds are hypoactive. Pelvis: Stable Genitourinary: Deferred. Loss of bowel is seen in her diaper Rectal: Deferred. Extremities: Atraumatic appearing with some old ecchymosis/bruising seen on the left forearm area but there is no palpable bony deformities or soft tissue swelling, gross atrophy is seen of the lower extremities, negative for cords or calf pain. Neurovascular unremarkable as can be assessed. Patient has a very thready pulse which is barely palpable in the femoral area Neuro: Patient is unresponsive and neuro exam cannot be performed. Patient is intubated by anesthesia without any medications please see his note. Skin: Somewhat pale very hot and slightly diaphoretic at the cor and cool at the periphery. No evidence of any rashes Diagnostics: EKG CBC CMP lactic acid UA urine culture blood cultures 2 chest x-ray troponin Therapeutics: IV O2 monitor IV fluid resuscitation, Zosyn Rocephin vancomycin Tylenol Patient's discharge summary from yesterday was briefly reviewed and the culture reports were also reviewed. Case was discussed with Dr. Tariq at 8:04 AM at [facility] who accepts the patient for transfer to the ER. Flight team was notified and patient will be continued on IV fluid resuscitation and pressors will be discussed with the flight team to be used per their protocol as needed in route. Temperature is already down to 102 at the time of this dictation. Patient's family will be notified by pastoral care and the patient will be package and transferred as soon as possible. All testing will be reviewed prior to patient's discharge as is available a portable chest x-ray was reviewed by both anesthesia and myself. Critical care time excluding procedures: 31 minutes Please note that the patient has completed 3 L of IV fluids and pressure is improving to the 70s but we will start pressors at low dose to help maintain blood pressure and discuss maintenance of this in route with continued IV fluid resuscitation with light team Impression: Sepsis with hypotension and acute respiratory failure Definitive disposition and diagnosis as appropriate pending reevaluation and review of above. - Related Data Allergies Allergy/AdvReac Type Severity Reaction Status Date / Time avocado Allergy Rash Verified 09/01/16 14:48 haloperidol [From Haldol] Allergy Other Verified 11/20/16 15:35 kiwi Allergy Rash Verified 09/01/16 14:48 latex Allergy Hives Verified 09/01/16 14:48 Latex, Natural Rubber Allergy Rash Verified 09/01/16 14:48 Sulfa (Sulfonamide Allergy Rash Verified 09/01/16 14:48 Antibiotics) sulfamethoxazole Allergy Hives Verified 09/01/16 14:48 [From Bactrim] trimethoprim [From Bactrim] Allergy Hives Verified 09/01/16 14:48 chestnuts Allergy Rash Uncoded 09/01/16 14:48 Home Meds: Home Meds Multivitamin [Multi-Vitamin Daily] 1 tab PEGTUBE DAILY #0 01/19/15 [Rx] Sertraline [Zoloft] 100 mg PEGTUBE DAILY #0 01/19/15 [Rx] Baclofen 10 mg PEGTUBE BID 05/15/15 [History] medroxyPROGESTERone Acetate [Depo-Provera] 150 mg IM Q90D 05/15/15 [History] Baclofen 10 mg PO BID PRN 11/20/16 [History] Cyanocobalamin (Vitamin B-12) [Vitamin B-12] 1,000 mcg IM Q90D 11/20/16 [History ] Nitrofurantoin Monohyd/M-Cryst [Macrobid 100 mg Capsule] 100 mg PO BID #10 capsule 11/25/16 [Rx] Polyethylene Glycol 3350 [MiraLAX] 17 gm PO DAILY #30 packet 11/25/16 [Rx] Past Medical History HEENT History: Reports: None Cardiovascular History: Reports: None. Denies: CAD, Hypertension Respiratory History: Reports: Other (See Below) Other Respiratory History: Aspiration Pneumonia Gastrointestinal History: Reports: Chronic Constipation, Other (See Below) Other Gastrointestinal History: Gtube Genitourinary History: Reports: UTI, Recurrent [employer] History: Reports: Other (See Below) Other OB/BYN History: Ovarian torsion Musculoskeletal History: Reports: None Neurological History: Reports: Cerebral Palsy, Seizure Other Neuro History: Microcephalic Psychiatric History: Reports: Other (See Below) Other Psychiatric History: separation anxiety, intellectual disability Endocrine/Metabolic History: Reports: None Hematologic History: Reports: B12 Deficiency Immunologic History: Reports: None Oncologic (Cancer) History: Reports: None Dermatologic History: Reports: None - Infectious Disease History Infectious Disease History: Reports: None - Past Surgical History Neurological Surgical History: Reports: Other (See Below) Musculoskeletal Surgical History: Reports: Other (See Below) Social & Family History - Family History Family Medical History: Noncontributory - Tobacco Use Smoking Status *Q: Never Smoker Second Hand Smoke Exposure: No - Caffeine Use Caffeine Use: Reports: None - Recreational Drug Use Recreational Drug Use: No - Living Situation & Occupation Living situation: Reports: Extended Care Facility ED ROS GENERAL - Review of Systems Review Of Systems: ROS reveals no pertinent complaints other than HPI. ED EXAM, GENERAL - Physical Exam Exam: See Below (See dictation) Course - Orders/Labs/Meds Orders: Active Orders 24 hr Category Date Time Status Cardiac Monitoring [RC] . DIRECTED Care 11/26/16 07:54 Active EKG Documentation Completion [RC] STAT Care 11/26/16 07:54 Active Oxygen Therapy, ED [RC] ASDIRECTED Care 11/26/16 07:54 Active Pulse Oximetry [RC] ASDIRECTED Care 11/26/16 07:54 Active CBC WITH AUTO DIFF [HEME] Stat Lab 11/26/16 07:54 Ordered COMPREHENSIVE METABOLIC PN,CMP [CHEM] Stat Lab 11/26/16 07:54 Ordered CULTURE BLOOD [BC] Stat Lab 11/26/16 07:55 Ordered CULTURE BLOOD [BC] Stat Lab 11/26/16 07:55 Ordered CULTURE URINE [RM] Stat Lab 11/26/16 07:54 Uncollected HCG QUALITATIVE,URINE [URCHEM] Stat Lab 11/26/16 07:54 Uncollected LACTIC ACID,WHOLE BLOOD [BG] Stat Lab 11/26/16 07:54 Ordered TROPONIN I [CHEM] Stat Lab 11/26/16 07:54 Ordered UA W/MICROSCOPIC [URIN] Stat Lab 11/26/16 07:54 Uncollected Piperacillin/Tazobactam [Piperacil-Tazobact] 3.375 gm Med 11/26/16 07:55 Active Sodium Chloride 0.9% [Normal Saline] 50 ml IV ONETIME Sodium Chloride 0.9% [Normal Saline] 1,000 ml Med 11/26/16 07:54 Active IV STAT Sodium Chloride 0.9% [Saline Flush] Med 11/26/16 07:55 Active 10 ml FLUSH ASDIRECTED PRN Sodium Chloride 0.9% [Saline Flush] Med 11/26/16 07:55 Active 2.5 ml FLUSH ASDIRECTED PRN Vancomycin [Vancocin] 1 gm Med 11/26/16 07:54 Active Sodium Chloride 0.9% [Normal Saline] 250 ml IV ONETIME cefTRIAXone [Rocephin in Dextrose,Iso-Osm 1 GM/50 ML] 1 Med 11/26/16 07:54 Active gm Premix Bag 1 bag IV ONETIME Blood Culture x2 Reflex Set [OM.PC] Stat Oth 11/26/16 07:54 Ordered Saline Lock Insert [OM.PC] Stat Oth 11/26/16 07:54 Ordered Medication Orders Ceftriaxone Sodium/Dextrose 1 (gm/ Premix) 50 mls @ 100 mls/hr IV ONETIME ONE Stop: 11/26/16 08:23 Piperacillin Sod/Tazobactam (Sod 3.375 gm/ Sodium Chloride) 50 mls @ 100 mls/ hr IV ONETIME ONE Stop: 11/26/16 08:24 Sodium Chloride (Normal Saline) 1,000 mls @ 999 mls/hr IV STAT ONE Stop: 11/26/16 08:54 Vancomycin HCl 1 gm/ Sodium (Chloride) 250 mls @ 250 mls/hr IV ONETIME ONE Stop: 11/26/16 08:53 Sodium Chloride (Saline Flush) 10 ml FLUSH ASDIRECTED PRN PRN Reason: Keep Vein Open Sodium Chloride (Saline Flush) 2.5 ml FLUSH ASDIRECTED PRN PRN Reason: Keep Vein Open Meds: Medications Generic Name Dose Route Start Last Admin Trade Name Freq PRN Reason Stop Dose Admin Ceftriaxone Sodium/Dextrose 1 50 mls @ 100 mls/hr 11/26/16 07:54 gm/ Premix IV 11/26/16 08:23 ONETIME ONE Piperacillin Sod/Tazobactam 50 mls @ 100 mls/hr 11/26/16 07:55 Sod 3.375 gm/ Sodium Chloride IV 11/26/16 08:24 ONETIME ONE Sodium Chloride 1,000 mls @ 999 mls/hr 11/26/16 07:54 Normal Saline IV 11/26/16 08:54 STAT ONE Vancomycin HCl 1 gm/ Sodium 250 mls @ 250 mls/hr 11/26/16 07:54 Chloride IV 11/26/16 08:53 ONETIME ONE Sodium Chloride 10 ml 11/26/16 07:55 Saline Flush FLUSH ASDIRECTED PRN Keep Vein Open Sodium Chloride 2.5 ml 11/26/16 07:55 Saline Flush FLUSH ASDIRECTED PRN Keep Vein Open Discontinued Medications Generic Name Dose Route Start Last Admin Trade Name Freq PRN Reason Stop Dose Admin Acetaminophen 1,000 mg 11/26/16 07:54 Tylenol RECTAL 11/26/16 07:55 NOW ONE Departure - Departure Time of Disposition: 08:13 Disposition: DC/Tfer to [facility] 02 Condition: Good Clinical Impression: Sepsis Qualifiers: Sepsis type: sepsis due to unspecified organism Qualified Code(s): A41.9 - Sepsis, unspecified organism Acute respiratory failure Qualifiers: Respiratory failure complication: unspecified whether with hypoxia or hypercapnia Qualified Code(s): J96.00 - Acute respiratory failure, unspecified whether with hypoxia or hypercapnia Hypotension Qualifiers: Hypotension type: unspecified hypotension type Qualified Code(s): I95.9 - Hypotension, unspecified - Discharge Information Referrals: PCP,None [Primary Care Provider] - - My Orders Last 24 Hours: My Active Orders 11/26/16 07:54 Cardiac Monitoring [RC] . DIRECTED EKG Documentation Completion [RC] STAT Oxygen Therapy, ED [RC] ASDIRECTED Pulse Oximetry [RC] ASDIRECTED CBC WITH AUTO DIFF [HEME] Stat COMPREHENSIVE METABOLIC PN,CMP [CHEM] Stat CULTURE URINE [RM] Stat HCG QUALITATIVE,URINE [URCHEM] Stat LACTIC ACID,WHOLE BLOOD [BG] Stat TROPONIN I [CHEM] Stat UA W/MICROSCOPIC [URIN] Stat Sodium Chloride 0.9% [Normal Saline] 1,000 ml IV STAT Vancomycin [Vancocin] 1 gm Sodium Chloride 0.9% [Normal Saline] 250 ml IV ONETIME cefTRIAXone [Rocephin in Dextrose,Iso-Osm 1 GM/50 ML] 1 gm Premix Bag 1 bag IV ONETIME Blood Culture x2 Reflex Set [OM.PC] Stat Saline Lock Insert [OM.PC] Stat 11/26/16 07:55 CULTURE BLOOD [BC] Stat CULTURE BLOOD [BC] Stat Piperacillin/Tazobactam [Piperacil-Tazobact] 3.375 gm Sodium Chloride 0.9% [ Normal Saline] 50 ml IV ONETIME Sodium Chloride 0.9% [Saline Flush] 10 ml FLUSH ASDIRECTED PRN Sodium Chloride 0.9% [Saline Flush] 2.5 ml FLUSH ASDIRECTED PRN - Assessment/Plan Last 24 Hours: My Active Orders 11/26/16 07:54 Cardiac Monitoring [RC] . DIRECTED EKG Documentation Completion [RC] STAT Oxygen Therapy, ED [RC] ASDIRECTED Pulse Oximetry [RC] ASDIRECTED CBC WITH AUTO DIFF [HEME] Stat COMPREHENSIVE METABOLIC PN,CMP [CHEM] Stat CULTURE URINE [RM] Stat HCG QUALITATIVE,URINE [URCHEM] Stat LACTIC ACID,WHOLE BLOOD [BG] Stat TROPONIN I [CHEM] Stat UA W/MICROSCOPIC [URIN] Stat Sodium Chloride 0.9% [Normal Saline] 1,000 ml IV STAT Vancomycin [Vancocin] 1 gm Sodium Chloride 0.9% [Normal Saline] 250 ml IV ONETIME cefTRIAXone [Rocephin in Dextrose,Iso-Osm 1 GM/50 ML] 1 gm Premix Bag 1 bag IV ONETIME Blood Culture x2 Reflex Set [OM.PC] Stat Saline Lock Insert [OM.PC] Stat 11/26/16 07:55 CULTURE BLOOD [BC] Stat CULTURE BLOOD [BC] Stat Piperacillin/Tazobactam [Piperacil-Tazobact] 3.375 gm Sodium Chloride 0.9% [ Normal Saline] 50 ml IV ONETIME Sodium Chloride 0.9% [Saline Flush] 10 ml FLUSH ASDIRECTED PRN Sodium Chloride 0.9% [Saline Flush] 2.5 ml FLUSH ASDIRECTED PRN
[2016-11-26 08:29] LABS: CHLORIDE,CL 117 mmol/L (98-110); SODIUM,NA 156 mmol/L (136-146)
--- NOTE | 2016-11-26 08:37 | PCM.SN ---
- Free Text/Narrative Note: Called to the ER for EMS reported Cardiac Arrest en-route. On patient arrival she has agonal/gaspy type respirations at a rate of 6-8, with EMS providing BVM support. HR 130's, weak femoral pulse is appreciated by [employer] SORTER. SBP in 60's. No drugs were needed for RSI, DL with Ye 2 yields grade I view, 7.0 cuffed ETT placed. +BBS, +EtCO2. ABG, CXR ordered. 18g PIV started to Lt wrist with 6mL blood draw for lab. 18g PIV Rt EJ started using sterile technique for Levophed infusion.
[2016-11-26] MEDS ORDERED: Etomidate 2 MG/ML 20 ML SDV IVPUSH ONE (09:15)
[2016-11-26] MEDS ORDERED: Norepinephrine 8 MG in Dextrose 5% in Water 242 ML IV SCH ×2 (09:30)
[2016-11-26 10:36] VITALS: BP 81/45
--- NOTE | 2016-11-28 16:16 | CR ---
EXAM DATE: 11/26/16 PATIENT'S AGE: 41 Patient: AILYN LEE Facility: [place], [place] : 1975 Study: XRay Chest -11/26/2016 8:08:30 AM Ordering Physician: derrick Final Report: Indication: Evaluate ET tube. Comparison: None. Technique: One view. Impression: ET tube 2.2 cm above the sherie. Lungs are clear. No pneumothorax or effusion. Pulmonary vascularity and cardiomediastinal silhouette within normal limits. Dictated by Leander Birmingham MD @ Nov 26 2016 8:15AM (Electronic Signature) Report Signed by Proxy. MTDD
== END 2016-11-26 08:55 ==
LOC: MW.ED 07:38
DX: A41.9 Sepsis, unspecified organism (principal); R65.20 Severe sepsis without septic shock; I95.9 Hypotension, unspecified; J96.00 Acute respiratory failure, unspecified whether with hypoxia or hypercapnia; Z88.2 Allergy status to sulfonamides; Z88.1 Allergy status to other antibiotic agents; Z91.040 Latex allergy status; Z91.018 Allergy to other foods; Z79.899 Other long term (current) drug therapy; Z87.440 Personal history of urinary (tract) infections
CPT/HCPCS: 31500; 36415; 36556; 36600; 51702; 71010; 80053; 81001; 81025; 82803; 82962; 83605; 84484; 85025; 87040; 87077; 87086; 87088; 87186; 93005; 96361; 96374; 96375; 99291; A9270; J0330; J0696; J2543; J3370; J7040; J7050; J7060; 36410; 99285